=== PATIENT | male | born 1960 | race Hispanic/Latino ===

== ENCOUNTER 2018-04-08 17:57 | Emergency (ER) | payer BC ==
[2018-04-08 18:52] VITALS: RESP 16; TEMP 98.6; BMI 31.1
[2018-04-08] MEDS ORDERED: Sodium Chloride 0.9% 500 ML IV STA (19:21)
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
[2018-04-08 20:02] LABS: BASO # 0.08 K/mm3 (0.0-2.0); BASO % 0.6 % (0.0-3.0); EOS # 0.1 (0.0-0.7); EOS % 0.4 % (1.5-5.0); GRAN # 11.41 (1.4-6.5); GRAN % 79.8 % (50.0-68.0); HEMOGLOBIN 15.1 g/dL (14.0-18.0); LYMPH # 1.7 (1.2-3.4); LYMPH % 11.7 % (22.0-35.0); MEAN CELL VOLUME 97.9 fl (80.0-105.0); MEAN CORPUSCULAR HEMOGLOBIN 34.4 pg (25.0-35.0); MEAN CORPUSCULAR HGB CONC 35.1 g/dl (31.0-37.0); MEAN PLATELET VOLUME 10.5 fl (7.0-11.0); MONO # 1.1 (0.1-0.6); MONO % 7.5 % (1.0-6.0); RBC 4.39 10^6/uL (3.5-6.1); RED CELL DISTRIBUTION WIDTH 14.9 % (11.5-14.5); WHITE BLOOD COUNT 14.3 10^3/uL (4.5-11.0)
[2018-04-08 20:11] LABS: INR 1.27; PARTIAL THROMBOPLASTIN TIME 37.5 Seconds (25.1-36.5); PROTHROMBIN TIME 14.6 SECONDS (9.4-12.5)
[2018-04-08 20:16] LABS: ALB/GLOB RATIO 0.8 (1.1-1.8); ALBUMIN 3.4 g/dL (3.0-4.8); ALT/SGPT 63 U/L (7-56); AST/SGOT 248 U/L (17-59); BLOOD UREA NITROGEN 9 mg/dL (7-21); GFR NON-AFRICAN AMERICAN 57; LIPASE 112 U/L (23-300)
[2018-04-08 21:27] LABS: URINE APPEARANCE SLIGHT-CLOUDY (CLEAR); URINE BILIRUBIN LARGE (NEGATIVE); URINE BLOOD TRACE-INTACT (NEGATIVE); URINE COLOR DARK YELLOW (YELLOW); URINE GLUCOSE (UA) NEGATIVE (NEGATIVE); URINE LEUKOCYTE ESTERASE TRACE Leu/uL (NEGATIVE); URINE PROTEIN 30 mg/dL (<30 mg/dL); URINE UROBILINOGEN >=8.0 E.U./dL (<1 E.U./dL)
[2018-04-08 21:34] LABS: URINE BACTERIA FEW /hpf; URINE RBC 0 - 2 /hpf (0-2); URINE WBC 0 - 2 /hpf (0-6)
[2018-04-09 02:13] VITALS: BP 142/78; PULSE 88; O2SAT 100
== END 2018-04-08 21:55 | disposition home or self-care (01) ==
LOC: ED 17:57
DX: N39.0 Urinary tract infection, site not specified (principal); M54.5 Low back pain; E11.9 Type 2 diabetes mellitus without complications; I10 Essential (primary) hypertension; F17.210 Nicotine dependence, cigarettes, uncomplicated
CPT/HCPCS: 80053; 81001; 83690; 83735; 85025; 85610; 85730; 87086; 96361; 96374; 99283; J1885; J7030

== ENCOUNTER 2018-04-15 20:35 | Emergency (ER) | payer BC ==
[2018-04-15 20:35] VITALS: BMI 27.2
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
[2018-04-15 22:25] LABS: BASO # 0.01 K/mm3 (0.0-2.0); BASO % 0.1 % (0.0-3.0); GRAN # 12.71 (1.4-6.5); GRAN % 91.6 % (50.0-68.0); HEMOGLOBIN 12.9 g/dL (14.0-18.0); LYMPH # 0.7 (1.2-3.4); MEAN CELL VOLUME 100.3 fl (80.0-105.0); MEAN CORPUSCULAR HEMOGLOBIN 34.4 pg (25.0-35.0); MEAN CORPUSCULAR HGB CONC 34.3 g/dl (31.0-37.0); MEAN PLATELET VOLUME 10.1 fl (7.0-11.0); MONO # 0.5 (0.1-0.6); MONO % 3.3 % (1.0-6.0); PLATELET COUNT 215 10^3/uL (120.0-450.0); RBC 3.75 10^6/uL (3.5-6.1); RED CELL DISTRIBUTION WIDTH 16.1 % (11.5-14.5); WHITE BLOOD COUNT 13.9 10^3/uL (4.5-11.0)
[2018-04-15 22:57] LABS: ALB/GLOB RATIO 0.8 (1.1-1.8); ALBUMIN 3.1 g/dL (3.0-4.8); ALT/SGPT 74 U/L (7-56); AST/SGOT 300 U/L (17-59); BLOOD UREA NITROGEN 8 mg/dL (7-21); CALCIUM 7.8 mg/dL (8.4-10.5); GFR NON-AFRICAN AMERICAN > 60; LIPASE 54 U/L (23-300)
[2018-04-15 22:58] LABS: ANISOCYTOSIS 1+; LYMPHOCYTE 6 % (22.0-35.0); MONOCYTE 2 % (1.0-6.0); NEUTROPHIL 92 % (50.0-70.0)
[2018-04-15 23:01] LABS: TROPONIN I < 0.01 ng/mL
[2018-04-16] MEDS ORDERED: Sodium Chloride 0.9% 1,000 ML IV STA (01:35)
[2018-04-16 02:25] LABS: PH,URINE 6.5 (4.7-8.0); URINE BILIRUBIN MODERATE (NEGATIVE); URINE BLOOD TRACE-LYSED (NEGATIVE); URINE GLUCOSE (UA) NEGATIVE (NEGATIVE); URINE LEUKOCYTE ESTERASE NEGATIVE Leu/uL (NEGATIVE); URINE PROTEIN 30 mg/dL (<30 mg/dL)
[2018-04-16 02:26] LABS: URINE APPEARANCE CLEAR (CLEAR); URINE COLOR YELLOW (YELLOW)
[2018-04-16 02:40] VITALS: BP 107/61; PULSE 80; RESP 16; TEMP 98; O2SAT 96
[2018-04-16 03:11] LABS: URINE EPITHELIAL CELLS 0 - 2 /hpf (0-5); URINE RBC 0 - 2 /hpf (0-2); URINE WBC 0 - 2 /hpf (0-6)
--- NOTE | 2018-04-16 11:41 | CT ---
Date of service: 04/16/2018 PROCEDURE: CT Abdomen and Pelvis without intravenous contrast HISTORY: lt. flank pain x 1 day COMPARISON: None. TECHNIQUE: CT scan of the abdomen and pelvis was performed without administration of intravenous contrast. Oral contrast was not administered. Coronal and sagittal reformatted images were obtained. . Radiation dose: Total exam DLP = 912.48 mGy-cm. This CT exam was performed using one or more of the following dose reduction techniques: Automated exposure control, adjustment of the mA and/or kV according to patient size, and/or use of iterative reconstruction technique. FINDINGS: LOWER THORAX: There is discoid atelectasis in the left lateral lung base, otherwise the visualized lungs are clear. LIVER: Normal in size with heterogeneous fatty infiltration. There is mild nodular contour. No intrahepatic ductal dilatation. GALLBLADDER AND BILE DUCTS: No calcified gallstones. No biliary dilatation PANCREAS: Diffuse atrophy. No ductal dilatation. SPLEEN: Normal in size. ADRENALS: Normal in size. No discrete nodule. KIDNEYS AND URETERS: Normal in size without nephrolithiasis. No hydronephrosis. VASCULATURE: No aortic aneurysm. There are aortic atherosclerotic calcifications present. BOWEL: The small bowel loops are normal in caliber. The colon is normal in size. There is scattered left colonic diverticulosis without CT evidence for acute diverticulitis no bowel dilatation or wall thickening. No bowel obstruction. APPENDIX: Normal appendix. PERITONEUM: There is large abdominal and pelvic ascites. No free air. LYMPH NODES: No enlarged lymph nodes. BLADDER: Well distended and grossly normal in appearance. REPRODUCTIVE: The prostate gland is normal in size. BONES: No acute fracture. There hypoplasia of the sacrum and absent coccyx. There is also abnormal segmentation at S1. OTHER FINDINGS: None. IMPRESSION: 1. Suspect hepatic cirrhosis. 2. Large abdominal and pelvic ascites. 3. Scattered left colonic diverticulosis without CT evidence for acute diverticulitis. A preliminary report was provided by [facility].
--- NOTE | 2018-04-16 19:49 | CARD ---
APPROVED REPORT Date of service: 04/15/2018 EKG Measurement Heart [id number] <Conclusion> Normal sinus rhythm Low voltage QRS Septal infarct, age undetermined Abnormal ECG
== END 2018-04-16 03:00 | disposition home or self-care (01) ==
LOC: ED 20:35
DX: R10.9 Unspecified abdominal pain (principal); I10 Essential (primary) hypertension; E78.5 Hyperlipidemia, unspecified; E11.9 Type 2 diabetes mellitus without complications; K74.60 Unspecified cirrhosis of liver; F17.210 Nicotine dependence, cigarettes, uncomplicated
CPT/HCPCS: 74176; 80053; 81001; 83690; 83735; 84484; 85025; 93005; 96360; 99284; J7030

== ENCOUNTER 2018-04-21 15:02 | Inpatient (IN) | payer BC ==
[2018-04-21 15:14] VITALS: BMI 32.5
[2018-04-21 16:00] LABS: BASO # 0.06 K/mm3 (0.0-2.0); BASO % 0.4 % (0.0-3.0); EOS % 0.3 % (1.5-5.0); GRAN # 12.29 (1.4-6.5); GRAN % 81.7 % (50.0-68.0); HEMOGLOBIN 12.5 g/dL (14.0-18.0); LYMPH % 6.4 % (22.0-35.0); MEAN CELL VOLUME 101.4 fl (80.0-105.0); MEAN CORPUSCULAR HEMOGLOBIN 35.5 pg (25.0-35.0); MEAN PLATELET VOLUME 10.4 fl (7.0-11.0); MONO # 1.7 (0.1-0.6); MONO % 11.2 % (1.0-6.0); RBC 3.52 10^6/uL (3.5-6.1); RED CELL DISTRIBUTION WIDTH 16.6 % (11.5-14.5)
[2018-04-21] MEDS ORDERED: Multivitamin (MVI) 10 ML, Thiamine 100 MG, Folic Acid 1 MG in Sodium Chloride 0.9% 1,00... IV SCH (16:15)
[2018-04-21] MEDS ORDERED: Ergocalciferol 50,000 Intl Units Cap PO SCH (16:30)
[2018-04-21 16:48] LABS: INR 1.31; PARTIAL THROMBOPLASTIN TIME 43.2 Seconds (25.1-36.5)
[2018-04-21 16:49] LABS: BASO # 0.06 K/mm3 (0.0-2.0); BASO % 0.4 % (0.0-3.0); EOS # 0.1 (0.0-0.7); EOS % 0.4 % (1.5-5.0); GRAN # 11.13 (1.4-6.5); GRAN % 83.5 % (50.0-68.0); HEMOGLOBIN 12.4 g/dL (14.0-18.0); LYMPH # 0.9 (1.2-3.4); LYMPH % 6.8 % (22.0-35.0); MEAN CELL VOLUME 101.4 fl (80.0-105.0); MEAN CORPUSCULAR HEMOGLOBIN 34.5 pg (25.0-35.0); MEAN CORPUSCULAR HGB CONC 34.1 g/dl (31.0-37.0); MEAN PLATELET VOLUME 9.5 fl (7.0-11.0); MONO # 1.2 (0.1-0.6); MONO % 8.9 % (1.0-6.0); RBC 3.59 10^6/uL (3.5-6.1); RED CELL DISTRIBUTION WIDTH 16.4 % (11.5-14.5); WHITE BLOOD COUNT 13.3 10^3/uL (4.5-11.0)
--- NOTE | 2018-04-21 16:52 | ED PDOC ---
Arrival/HPI - General Chief Complaint: Abdominal Pain Time Seen by Provider: 04/21/18 15:18 Historian: Patient - History of Present Illness Narrative History of Present Illness (Text): 04/21/18 16:49 A 57 year old male, whose past medical history includes hypertension, hyperlipidemia, diabetes type 2, liver cirrhosis with chronic ascites/COPD, EtOH abuse, presents to the emergency department complaining of increasing abdominal girth. Patient has been referred by PMD to ER to be admitted. He admits drinking 1-1.5 pints of alcohol along with smoking 1 pack of cigarettes daily. Patient denies any fever, vomiting, or any other complaints at this time. Also, patient was recently seen here in the ER, where he had CT and blood work performed. PMD: Dr. Maya Past Medical History - Provider Review Nursing Documentation Reviewed: Yes - Infectious Disease Hx of Infectious Diseases: None - Tetanus Immunization Tetanus Immunization: Unknown - Cardiac Hx Cardiac Disorders: No Hx Congestive Heart Failure: No Hx Hypertension: Yes - Pulmonary Hx Respiratory Disorders: Yes Hx Emphysema: Yes - Neurological HX Cerebrovascular Accident: No - HEENT Hx HEENT Disorder: Yes (glasses) - Renal Hx Renal Failure: No - Endocrine/Metabolic Hx Diabetes Mellitus Type 2: Yes - Hematological/Oncological Hx Blood Disorders: No - Integumentary Hx Dermatological Disorder: No - Musculoskeletal/Rheumatological Hx Falls: Yes (2 mo ago) - Gastrointestinal Hx Gastrointestinal Disorders: (reflux/ hx ulcers) Other/Comment: ascitis - Genitourinary/Gynecological Hx Reproductive Disorders: No - Psychiatric Hx Emotional Abuse: No Hx Physical Abuse: No Hx Substance Use: Yes (pot 2x a mo) - Surgical History Hx Musculoskeletal Surgery: Yes (RIGHT ANKLE W/ SCREW AND METAL PLATE 2 YRS AGO 2009?) Hx Orthopedic Surgery: No (Right knee sx and right ankle sx with pins and metal plate.) Other/Comment: HEMORRHOIDECTOMY 2012, pt denies r knee sx, hemorrhoidectomy 2012, cervical disk sx 03/2015 - Anesthesia Hx Anesthesia: Yes Hx Anesthesia Reactions: No Hx Malignant Hyperthermia: No - Suicidal Assessment Feels Threatened In Home Enviroment: No Family/Social History - Physician Review Nursing Documentation Reviewed: Yes Family/Social History: No Known Family HX Smoking Status: Heavy Smoker > 10 Cigarettes Daily Hx Alcohol Use: Yes (ETOH;1 pt vodka and 3 beers daily) Amount per day: 4 Hx Substance Use: Yes (pot 2x a mo) Substance used: marijuana Hx Substance Use Treatment: No Allergies/Home Meds Allergies/Adverse Reactions: Allergies No Known Allergies Allergy (Verified 04/15/18 21:19) Home Medications: Home Meds Medication Instructions Recorded Confirmed Ergocalciferol (Vitamin D2) 50,000 iu PO QWK 09/04/13 04/21/18 [Vitamin D2] Magnesium Oxide [Magox 400] 400 mg PO DAILY 09/04/13 04/21/18 Cyanocobalamin [Vitamin B12 1000 1,000 mcg PO .2X MONTHLY 01/27/15 04/21/18 mcg Tab] Folic Acid 1 mg PO DAILY 06/10/15 04/21/18 Rosuvastatin Calcium [Crestor] 10 mg PO DAILY 06/10/15 04/21/18 Benzonatate [Tessalon Perles] 200 mg PO TID 04/21/18 04/21/18 Cyproheptadine [Periactin] 1 tab PO BID 04/21/18 04/21/18 Ergocalciferol [Drisdol 50,000 1 cap PO Q7D 04/21/18 04/21/18 Intl Units Cap] Furosemide [Lasix] 1 tab PO DAILY 04/21/18 04/21/18 Glycopyrrolate/Formoterol Fum 2 puff IH BID 04/21/18 04/21/18 [Bevespi Aerosphere Inhaler] Levalbuterol [Xopenex] 1 vial IH TID 04/21/18 04/21/18 Levothyroxine [Synthroid] 25 mcg PO DAILY 04/21/18 04/21/18 Mirabegron [Myrbetriq] 1 tab PO DAILY 04/21/18 04/21/18 Montelukast [Singulair] 1 tab PO HS 04/21/18 04/21/18 Pantoprazole [Protonix EC Tab] 1 tab PO DAILY 04/21/18 04/21/18 Pregabalin [Lyrica] 1 cap PO HS 04/21/18 04/21/18 Tamsulosin [Flomax] 1 cap PO DAILY 04/21/18 04/21/18 Thiamine [Vitamin B1 Tab] 1 tab PO DAILY 04/21/18 04/21/18 diltiaZEM CD [Cardizem CD] 120 mg PO DAILY 04/21/18 04/21/18 Review of Systems - Physician Review All systems were reviewed & negative as marked: Yes - Review of Systems Constitutional: absent: Fevers Gastrointestinal: Other (abdominal girth). absent: Vomiting Physical Exam Vital Signs Reviewed: Yes Vital Signs Temp Pulse Resp BP Pulse Ox 04/21/18 15:03 99.5 F 105 H 22 118/70 95 Temperature: Afebrile Blood Pressure: Normal Pulse: Regular Respiratory Rate: Normal Appearance: Positive for: Well-Appearing, Non-Toxic, Comfortable Pain Distress: None Mental Status: Positive for: Alert and Oriented X 3 - Systems Exam Head: Present: Atraumatic, Normocephalic Pupils: Present: PERRL Extroacular Muscles: Present: EOMI Conjunctiva: Present: Icteric Mouth: Present: Moist Mucous Membranes Neck: Present: Normal Range of Motion Respiratory/Chest: Present: Clear to Auscultation, Good Air Exchange. No: Respiratory Distress, Accessory Muscle Use Cardiovascular: Present: Regular Rate and Rhythm, Normal S1, S2. No: Murmurs Abdomen: Present: Distention (caput medusae, with positive fluid wave.), Normal Bowel Sounds. No: Tenderness, Peritoneal Signs Back: Present: Normal Inspection Upper Extremity: Present: Normal Inspection. No: Cyanosis, Edema Lower Extremity: Present: Normal Inspection. No: Edema Neurological: Present: GCS=15, CN II-XII Intact, Speech Normal Skin: Present: Other (jaundice) Psychiatric: Present: Alert, Oriented x 3, Normal Insight, Normal Concentration Medical Decision Making ED Course and Treatment: 04/21/18 16:51 Impression: 57 year old male with abdominal girth. Physical exam shows sclera icteric; skin is jaundice; heart and lungs normal; abdominal distention (caput medusae with positive fluid wave, positive bowel sounds. Plan: -- Labs -- Urinalysis -- Blood Culture -- Urine Culture -- Reassess and disposition Prior Visits: Notes and results from previous visits were reviewed. Patient was last seen here in the emergency department on 04/15/2018 for left sided flank pain. Patient was discharged home. Progress Notes: 04/21/18 18:[address] Maya and reviewed case. Patient to be admitted to med/surg for further management. - Lab Interpretations Lab Results: PT 15.0 SECONDS (9.4-12.5) H 04/21/18 15:40 INR 1.31 04/21/18 15:40 APTT 43.2 Seconds (25.1-36.5) H 04/21/18 15:40 I have reviewed the lab results: Yes - Medication Orders Current Medication Orders: Acetaminophen (Tylenol 650 Mg Supp) 650 mg RC Q6H PRN PRN Reason: TEMP>=99.5F Acetylcysteine (Acetylcysteine 20%) 4 ml IH [id number] DOC Chlordiazepoxide (Librium) 25 mg PO Q6 DOC; Taper Stop: 04/25/18 17:59 Chlordiazepoxide (Librium) 25 mg PO Q4H PRN PRN Reason: Withdrawl Chlordiazepoxide (Librium) 50 mg PO Q4H PRN PRN Reason: Symptoms of alcohol withdrawl Clonidine HCl (Catapres) 0.1 mg PO Q4H PRN PRN Reason: Symptoms of alcohol withdrawl Diazepam (Valium) 5 mg PO Q8H PRN PRN Reason: Symptoms of alcohol withdrawl Diltiazem HCl (Cardizem Cd) 120 mg PO DAILY DOC Docusate Sodium (Colace) 100 mg PO TID DOC Ergocalciferol (Drisdol 50,000 Intl Units Cap) 1 cap PO Q7D DOC Folic Acid (Folic Acid) 1 mg PO DAILY DOC Haloperidol Lactate (Haldol) 2 mg IM Q8H PRN PRN Reason: Agitation Multivitamins/Vitamin C 10 ml/Thiamine HCl 100 mg/ Folic Acid 1 mg/ Sodium Chloride 1,011.2 mls @ 100 mls/hr IV .Q10H7M DOC Levalbuterol HCl (Xopenex) 0.63 mg IH [id number] DOC Levothyroxine Sodium (Synthroid) 25 mcg PO 0600 DOC Lorazepam (Ativan) 1 mg IVP Q4H PRN PRN Reason: Symptoms of alcohol withdrawl Lorazepam (Ativan) 1 mg PO Q4H PRN PRN Reason: Symptoms of alcohol withdrawl Lorazepam (Ativan) 0 mg PO Q8H DOC; Taper Stop: 04/26/18 16:14 Montelukast Sodium (Singulair) 10 mg PO STAT STA Stop: 04/21/18 16:42 Montelukast Sodium (Singulair) 10 mg PO HS [facility] Multivitamins/Minerals (Therapeutic-M Tab) 1 tab PO DAILY [facility] Nicotine (Nicoderm Cq) 1 patch TD DAILY [facility] Non-Formulary Medication (Mirabegron [Myrbetriq]) 1 tab PO DAILY DOC Ondansetron HCl (Zofran Inj) 4 mg IVP Q4H PRN PRN Reason: Nausea/Vomiting Pantoprazole Sodium (Protonix Inj) 40 mg IVP Q12 DOC Tamsulosin HCl (Flomax) 1 mg PO DAILY DOC Thiamine HCl (Vitamin B1 Tab) 100 mg PO DAILY DOC Trazodone HCl (Desyrel) 50 mg PO HS PRN PRN Reason: Insomnia Discontinued Medications Folic Acid (Folic Acid) 1 mg PO DAILY [facility] - Scribe Statement The provider has reviewed the documentation as recorded by the Negar Gonzalez Provider Scribe Attestation: All medical record entries made by the Deepibabimael were at my direction and personally dictated by me. I have reviewed the chart and agree that the record accurately reflects my personal performance of the history, physical exam, medical decision making, and the department course for this patient. I have also personally directed, reviewed, and agree with the discharge instructions and disposition. Disposition/Present on Arrival - Present on Arrival Any Indicators Present on Arrival: No History of DVT/PE: No History of Uncontrolled Diabetes: No Urinary Catheter: No History of Decub. Ulcer: No History Surgical Site Infection Following: None - Disposition Have Diagnosis and Disposition been Completed?: Yes Diagnosis: Elevated LFTs, Jaundice, Ascites Disposition: HOSPITALIZED Disposition Time: 17:15 Condition: GUARDED
[2018-04-21 17:16] LABS: ALB/GLOB RATIO 0.8 (1.1-1.8); ALBUMIN 3.1 g/dL (3.0-4.8); ALT/SGPT 70 U/L (7-56); AMYLASE 31 U/L (35-125); AST/SGOT 230 U/L (17-59); BILIRUBIN,DIRECT 3.7 mg/dL (0.0-0.4); BLOOD UREA NITROGEN 10 mg/dL (7-21); GFR NON-AFRICAN AMERICAN > 60; LIPASE 73 U/L (23-300)
[2018-04-21] MEDS ORDERED: Levalbuterol 0.63 MG/3 ML Inhal Soln UD IH SCH (18:00)
[2018-04-21] MEDS ORDERED: Vancomycin 1gm in NS 250ml 1 GM/250 ML BAG IVPB STA ×2 (18:04→21:45)
[2018-04-21] MEDS: Multivitamin With Minerals Tab PO SCH (18:04)
[2018-04-21] MEDS ORDERED: Piperacillin/Tazobact 3.375 gm 100 ML IVPB STA (18:13)
[2018-04-21 19:01] LABS: PH,URINE 6.5 (4.7-8.0); URINE APPEARANCE CLOUDY (CLEAR); URINE BILIRUBIN LARGE (NEGATIVE); URINE BLOOD TRACE-INTACT (NEGATIVE); URINE COLOR YELLOW (YELLOW); URINE GLUCOSE (UA) 100 mg/dL (NEGATIVE); URINE LEUKOCYTE ESTERASE NEGATIVE Leu/uL (NEGATIVE); URINE PROTEIN 100 mg/dL (<30 mg/dL); URINE UROBILINOGEN >=8.0 E.U./dL (<1 E.U./dL)
[2018-04-21 19:03] LABS: URINE EPITHELIAL CELLS 0 - 2 /hpf (0-5); URINE WBC 0 - 2 /hpf (0-6)
[2018-04-21 19:40] LABS: FREE T4 1.62 ng/dL (0.78-2.19); T4 8.3 ug/dL (5.5-11.0)
[2018-04-21] MEDS: Levalbuterol 0.63 MG/3 ML Inhal Soln UD IH SCH (19:45)
[2018-04-21 19:53] LABS: T3 0.83 ng/mL (0.97-1.69)
[2018-04-21] MEDS: Piperacillin/Tazobact 3.375 gm 100 ML IVPB SCH (21:51)
--- NOTE | 2018-04-21 22:30 | HP ---
DATE OF EXAM: 04/21/2018 HISTORY OF PRESENT ILLNESS: The patient is a 57-year-old male who came to the emergency room today. The patient was evaluated and seen in the office yesterday because the patient presented with complaints of increasing shortness of breath, increasing abdominal distention and yellowness of the eyes and the patient has gained more than 11 pounds since the last visit and the patient has come with increasing shortness of breath, leg swelling, and increasing abdominal distention. Apparently, the patient was seen in the emergency room on 04/15/2018 and the patient presented with complaints of abdominal pain and toe pain. The patient was discharged by the ER staff. Today, the patient presented to the emergency room with increasing abdominal distention, shortness of breath, etc. CODE STATUS: Full code. LIVING WILL ADVANCE DIRECTIVE: None. Height is 5 feet 6 inches. Weight is 202. BMI is 33. MEDICATIONS: The patient's home medications are incorrect in the [facility]. The patient has been started yesterday on Lasix 40 mg daily. The patient's Cardizem has been decreased to 120 mg daily. The patient's Crestor has been stopped. The patient is no longer on diazepam and doxycycline. The patient is on Xopenex nebulizer 0.63 mg four times a day. The patient is no longer on metformin. The patient is no longer on Motrin, magnesium, Pamelor, or Percocet. The patient is on vitamin D 50,000 units weekly, thiamine 100 mg daily, folic acid 1 mg daily, Lasix 40 mg daily, Protonix or Dexilant daily. SOCIAL HISTORY: Positive for alcohol use on a daily basis. Positive for marijuana use. Positive for active smoking. PAST MEDICAL AND SURGICAL HISTORY: Significant for severe alcohol and nicotine dependence and marijuana abuse, history of perirectal abscess, history of perirectal abscess surgery, history of constipation, history of alcohol withdrawal and delirium tremens, history of hepatorenal syndrome, history of alcohol withdrawal, history of left neck abscess, history of cellulitis, history of spinal stenosis, history of foot disease, history of prediabetes, history of vitamin B12 deficiency, history of MRSA, elbow cellulitis, neck cellulitis and neck abscess, history of incision and drainage of the left neck abscess, history of cervical spine diskectomy effusion, wound abscess drainage, exploration of the cervical spine with cervical fusion, history of neck abscess and drainage, history of possible pulmonary hypertension, history of hypertension, history of active nicotine, alcohol and marijuana abuse, history of emphysema, history of cervical spine and lumbar spine degenerative disk disease, history of perineal abscess, hemorrhoidectomy, tonsillectomy, history of right knee surgery, history of cervical, thoracic, and lumbar spine disk disease, history of cervical disk herniation with severe spinal stenosis, cervical spine surgery, history of fatty liver, history of left inguinal hernia, history of hepatomegaly with fatty liver, history of hepatic steatosis, history of perirectal abscess, history of hydrocele, history of gastritis, colonic diverticulosis, fatty liver, history of bilateral hydroceles, history of perianal and perirectal abscess, history of Escherichia coli, Proteus mirabilis, perirectal, perineal abscess, history of sleep apnea, history of alcohol and nicotine dependence, history of delirium tremens, history of diabetes and prediabetes, history of sepsis, history of hyperprocalcitonemia, history of severe gait dysfunction, history of left foot wound, history of chronic pain syndrome, history of right foot abscess, history of poor compliance and noncompliance, history of cervical neck abscess, history of left elbow abscess, history of , history of cervical spondylosis and myelopathy, history of Staphylococcus aureus, Gram-positive cocci in clusters, bacteremia sepsis, history of right neck cellulitis and abscess, history of left elbow cellulitis and abscess, history of extremely poor compliance, history of degenerative joint disease, and history of neuropathy. The patient has recently been seen in the emergency room on 04/15/2018. The patient was also found to have leukocytosis and the patient was found to have hyperbilirubinemia with bilirubin of 4.6 and elevated transaminases and the patient had a CT scan at that time on 04/15/2018. CAT scan shows large new-onset ascites and hepatic cirrhosis and colonic diverticulosis. PHYSICAL EXAMINATION: GENERAL: The patient is seen in stretcher #20 in the emergency room. VITAL SIGNS: The patient's T-max is 99.5, heart rate 105, blood pressure 118/70, respirations 22, and O2 sat 99%. HEENT: Head examination; normocephalic and atraumatic. HEENT examination shows icteric sclerae. Dry oral mucosa. Overgrown alfonso. Poor hygiene. NECK: No neck rigidity. Positive cervical spine surgery noted. CARDIOVASCULAR: S1 and S2, tachycardic rhythm. LUNGS: Show rhonchi. ABDOMEN: Morbidly distended, tense, and tender. Positive bowel sounds. Positive prominent veins noted in the abdominal wall. GENITALIA: Male. RECTAL: Deferred. EXTREMITIES: Shows positive swelling of the lower extremity. Positive pitting edema. MUSCULOSKELETAL: Shows a body mass index of 33. NEUROLOGIC: The patient is alert, awake, and responsive. No visible asterixis of flap noted. Gait examination is assisted with a cane. DIAGNOSTIC DATA: Alcohol level, ammonia level, CBC, CMP, PT/PTT, drug screen, blood and urine cultures, and type and screen pending. When above diagnostic data is available to be reviewed and diagnostic therapeutic intervention will be managed. IMPRESSION AND PLAN: 1. New-onset large abdominopelvic ascites with obstructive jaundice and hyperbilirubinemia. 2. Tachycardia. 3. Low-grade fever. 4. Leukocytosis with granulocytosis. 5. Hyperbilirubinemia. 6. Severe transaminitis. 7. Proteinuria and microscopic hematuria. 8. History of active smoking, alcoholism and drug abuse. 9. Left lower lobe atelectasis. 10. Hepatic cirrhosis with hepatic fatty infiltration. 11. Pancreatic atrophy. 12. Colonic diverticulosis. 13. Large abdominopelvic ascites. Plan at this time, the patient has been evaluated in the ER, pending all the diagnostic testing. The patient's hepatitis serologies have been ordered. Amylase and lipase has been ordered. The patient's alcohol level, ammonia, amylase, lipase, CMP, LFT, magnesium, phosphorus, CBC, and PTT/PT has been pending. The patient has been ordered oxygen, incentive spirometry, and consistent carbohydrate diet. The patient has been ordered physical therapy and occupational therapy. At present, the patient's entire diagnostic data is pending. The patient's further management will be dependent upon the patient's clinical condition, hemodynamic status, and as per the patient's diagnostic data and as per recommendation by other physicians evaluation. In addition, the patient will be consulted with Gastroenterology. At present, the patient is seen and evaluated in the emergency room in bed 21. The patient is pending all diagnostic data. The patient will be given empiric IV antibiotics. Interventional Radiology evaluation has been requested. Gastroenterology evaluation has been requested. Dictated and electronically signed, not read. Rai Maya MD [facility] # [id number]
[2018-04-22 00:16] LABS: BARBITURATES, UR NEGATIVE (NEGATIVE); BENZODIAZEPINES, UR POSITIVE (NEGATIVE); OPIATES, UR POSITIVE (NEGATIVE); PHENCYCLIDINE, UR POSITIVE (NEGATIVE)
[2018-04-22 00:59] LABS: HDL CHOLESTEROL 21 mg/dL (29-60)
[2018-04-22 01:10] LABS: LDL CHOLESTEROL 64 mg/dL (0-129)
[2018-04-22] MEDS ORDERED: Piperacillin/Tazobact 3.375 gm 100 ML IVPB SCH (02:13)
[2018-04-22] MEDS: Levalbuterol 0.63 MG/3 ML Inhal Soln UD IH SCH ×5 (02:20→20:34)
[2018-04-22] MEDS: Acetylcysteine 20% Inhal Soln (4ml) IH SCH ×5 (02:20→20:34)
[2018-04-22] MEDS: Piperacillin/Tazobact 3.375 gm 100 ML IVPB SCH ×3 (05:00→22:07)
[2018-04-22] MEDS: Levothyroxine 50 MCG TAB PO SCH (05:01)
[2018-04-22] MEDS ORDERED: Levothyroxine 25 MCG TAB PO SCH ×2 (06:00→10:00)
[2018-04-22 07:01] LABS: BASO # 0.04 K/mm3 (0.0-2.0); BASO % 0.3 % (0.0-3.0); EOS # 0.1 (0.0-0.7); EOS % 0.4 % (1.5-5.0); GRAN # 10.91 (1.4-6.5); HEMOGLOBIN 11.5 g/dL (14.0-18.0); LYMPH # 1.5 (1.2-3.4); LYMPH % 11.2 % (22.0-35.0); MEAN CELL VOLUME 101.8 fl (80.0-105.0); MEAN CORPUSCULAR HEMOGLOBIN 34.2 pg (25.0-35.0); MEAN CORPUSCULAR HGB CONC 33.6 g/dl (31.0-37.0); MEAN PLATELET VOLUME 10.2 fl (7.0-11.0); MONO # 1.1 (0.1-0.6); MONO % 8.1 % (1.0-6.0); RBC 3.36 10^6/uL (3.5-6.1); RED CELL DISTRIBUTION WIDTH 16.9 % (11.5-14.5); WHITE BLOOD COUNT 13.6 10^3/uL (4.5-11.0)
[2018-04-22 07:27] LABS: ALB/GLOB RATIO 0.8 (1.1-1.8); ALBUMIN 2.8 g/dL (3.0-4.8); ALT/SGPT 60 U/L (7-56); AST/SGOT 202 U/L (17-59); BLOOD UREA NITROGEN 11 mg/dL (7-21); CALCIUM 7.9 mg/dL (8.4-10.5); GFR NON-AFRICAN AMERICAN > 60
[2018-04-22] MEDS ORDERED: Magnesium Sulfate 2 gm/50 ml 2 GM/50 ML BAG IVPB ONE (07:49)
--- NOTE | 2018-04-22 09:13 | US ---
PROCEDURE: Portal vein duplex ultrasound. CLINICAL HISTORY: Cirrhosis. Deteriorating liver function. Evaluate for portal vein thrombosis. PHYSICIAN(S): Jeronimo Adrian M.D. FINDINGS: The exam is extremely limited due to the patient's abdominal distention, shortness of breath, and inability to cooperate Limited images of the hepatic parenchyma are heterogeneous. No obvious mass is noted. The extrahepatic portal vein is patent with hepatopetal flow. The hepatic artery is patent. Limited imaging of the central hepatic veins are patent. There is a small amount of ascites in the upper abdomen. The spleen is not evaluated. IMPRESSION: 1. Patent portal vein with hepatopetal flow. 2. Very limited study.
[2018-04-22] MEDS ORDERED: MIRABEGRON PO SCH (10:00)
[2018-04-22] MEDS: Multivitamin With Minerals Tab PO SCH (10:13)
[2018-04-22] MEDS: diltiaZEM 120 mg/24 Hours CD Cap PO SCH (10:14)
--- NOTE | 2018-04-22 10:30 | US ---
Date of service: 04/21/2018 HISTORY: ASCITES/JAUNDICE COMPARISON: 06/23/2017. abdominal ultrasound. 04/16/2018 CT abdomen and pelvis. TECHNIQUE: Sonographic evaluation of the abdomen. FINDINGS: LIVER: Measures 20.0 cm. Hepatopedal blood flow. Fatty infiltration manifest ultrasonographically as increased echogenicity of the liver parenchyma. Irregular contours to the liver consistent with cirrhotic change. GALLBLADDER: Unremarkable. No gallstones. COMMON BILE DUCT: Measures 5.7 mm. No stones. No dilatation. PANCREAS: Obscured by overlying bowel gas. Non diagnostic assessment of the pancreas RIGHT KIDNEY: Measures 4.6 x 11cm. Normal echogenicity. No calculus, mass, or hydronephrosis. LEFT KIDNEY: Measures 5.5 x 11.6cm. Normal echogenicity. No calculus, mass, or hydronephrosis. SPLEEN: Top-normal was orthogonal measurements 6 x 5.9 x 12.5 cm. AORTA: No aneurysmal dilatation. IVC: Unremarkable. OTHER FINDINGS: Intra-abdominal ascites which is incompletely visualized. IMPRESSION: Hepatomegaly, hepatic steatosis and cirrhotic appearing liver. No significant interval change compared to the prior examination(s). Limitations of the current examination: Nondiagnostic study of pancreas. Concordant findings (preliminary report) provided by [facility].
[2018-04-22 12:25] LABS: BODY FLUID TYPE PERITONEAL/ASCITES
[2018-04-22 13:04] LABS: BF GROSS APPEARANCE CLEAR (CLEAR); BODY FLUID TOTAL COUNT 100 (0-0)
[2018-04-22 13:10] LABS: HEPATITIS B SURFACE AG Negative (NEGATIVE)
[2018-04-22 13:16] LABS: HEPATITIS A IGM NEGATIVE (NEGATIVE); HEPATITIS B CORE AB NEGATIVE (NEGATIVE)
[2018-04-22 13:28] LABS: HEPATITIS C ANTIBODY NEGATIVE (NEGATIVE)
--- NOTE | 2018-04-22 14:46 | CP.PCM.CON ---
<Ghanshyam Falk - Last Filed: 04/22/18 14:53> History of Present Illness - History of Present Illness History of Present Illness: Infectious disease progress note: 57 year old male, whose pmhx includes hypertension, hyperlipidemia, diabetes type 2, liver cirrhosis with ascites, COPD, EtOH abuse, presents to the ED following visit to his PMD. In the office patient was reportedly had scleral icterus , increasingly sob, abdominal distention. Patient also had a 11 pound weight gain. He states that he feels that his abdomen is more distended and only complains of mild pain. Patient also complains of being more short of breath recently worst wit exertion. He denies any fever, chills, headaches, chest pain, n/v/d, urinary symptoms. 12 Point ROS performed and neg other than stated above PMHx: as above PShx: denies ALL: NKA SH: drinks 1-2 pints per day, smokes 1-2 PPD > 30 years, smokes marijunana FH: denies Review of Systems - Review of Systems All systems: reviewed and no additional remarkable complaints except Past Patient History - Infectious Disease Hx of Infectious Diseases: None - Tetanus Immunizations Tetanus Immunization: Unknown - Past Medical History & Family History Past Medical History?: Yes - Past Social History Smoking Status: Current Some Days Smoker - CARDIAC Hx Hypercholesterolemia: Yes Hx Hypertension: Yes - PULMONARY Hx Chronic Obstructive Pulmonary Disease (COPD): Yes - NEUROLOGICAL HX Cerebrovascular Accident: No - HEENT Hx HEENT Problems: Yes (glasses) - RENAL Hx Renal Failure: No - ENDOCRINE/METABOLIC Hx Diabetes Mellitus Type 2: Yes - HEMATOLOGICAL/ONCOLOGICAL Hx Blood Disorders: No - INTEGUMENTARY Hx Dermatological Problems: No - MUSCULOSKELETAL/RHEUMATOLOGICAL Hx Arthritis: Yes - GASTROINTESTINAL Hx Gastrointestinal Disorders: (reflux/ hx ulcers) Other/Comment: ascitis - GENITOURINARY/GYNECOLOGICAL Hx Genitourinary Disorders: No - PSYCHIATRIC Hx Emotional Abuse: No Hx Physical Abuse: No - SURGICAL HISTORY Hx Musculoskeletal Surgery: Yes (RIGHT ANKLE W/ SCREW AND METAL PLATE 2 YRS AGO 2009?) Hx Orthopedic Surgery: No (Right knee sx and right ankle sx with pins and metal plate.) Other/Comment: HEMORRHOIDECTOMY 2012, pt denies r knee sx, hemorrhoidectomy 2012, cervical disk sx 03/2015 - ANESTHESIA Hx Anesthesia: Yes Hx Anesthesia Reactions: No Hx Malignant Hyperthermia: No Meds Allergies/Adverse Reactions: Allergies Allergy/AdvReac Type Severity Reaction Status Date / Time No Known Allergies Allergy Verified 04/15/18 21:19 - Medications Medications: Current Medications Acetylcysteine (Acetylcysteine 20%) 4 ml IH [id number] [facility] Last Admin: 04/22/18 14:12 Dose: 4 ml Chlordiazepoxide (Librium) 25 mg PO Q6 [facility]; Taper Stop: 04/25/18 17:59 Last Admin: 04/22/18 13:22 Dose: 25 mg Chlordiazepoxide (Librium) 25 mg PO Q4H PRN PRN Reason: Withdrawl Chlordiazepoxide (Librium) 50 mg PO Q4H PRN PRN Reason: Symptoms of alcohol withdrawl Clonidine HCl (Catapres) 0.1 mg PO Q4H PRN PRN Reason: Symptoms of alcohol withdrawl Diazepam (Valium) 5 mg PO Q8H PRN PRN Reason: Symptoms of alcohol withdrawl Diltiazem HCl (Cardizem Cd) 120 mg PO DAILY [facility] Last Admin: 04/22/18 10:14 Dose: 120 mg Docusate Sodium (Colace) 100 mg PO TID [facility] Last Admin: 04/22/18 10:14 Dose: 100 mg Ergocalciferol (Drisdol 50,000 Intl Units Cap) 1 cap PO Q7D [facility] Last Admin: 04/21/18 18:04 Dose: 1 cap Folic Acid (Folic Acid) 1 mg PO DAILY [facility] Furosemide (Lasix) 40 mg IVP DAILY [facility] Haloperidol Lactate (Haldol) 2 mg IM Q8H PRN PRN Reason: Agitation Piperacillin Sod/Tazobactam Sod (Zosyn 3.375 In Ns 100ml) 100 mls @ 25 mls/hr IVPB Q8 [facility]; Protocol Stop: 04/30/18 22:01 Last Admin: 04/22/18 05:00 Dose: 25 mls/hr Levalbuterol HCl (Xopenex) 0.63 mg IH [id number] [facility] Last Admin: 04/22/18 14:12 Dose: 0.63 mg Levothyroxine Sodium (Synthroid) 50 mcg PO 0600 [facility] Last Admin: 04/22/18 05:01 Dose: 50 mcg Lorazepam (Ativan) 1 mg IVP Q4H PRN PRN Reason: Symptoms of alcohol withdrawl Lorazepam (Ativan) 1 mg PO Q4H PRN PRN Reason: Symptoms of alcohol withdrawl Lorazepam (Ativan) 2 mg PO Q8H [facility] Stop: 04/22/18 16:59 Last Admin: 04/22/18 10:15 Dose: 2 mg Lorazepam (Ativan) 1 mg PO Q6H [facility] Stop: 04/23/18 16:59 Lorazepam (Ativan) 1 mg PO Q8H [facility] Stop: 04/24/18 16:59 Lorazepam (Ativan) 1 mg PO Q12H [facility] Stop: 04/25/18 16:59 Lorazepam (Ativan) 1 mg PO 1700 [facility] Stop: 04/26/18 16:59 Montelukast Sodium (Singulair) 10 mg PO HS [facility] Last Admin: 04/21/18 21:51 Dose: 10 mg Multivitamins/Minerals (Therapeutic-M Tab) 1 tab PO DAILY [facility] Last Admin: 04/22/18 10:13 Dose: 1 tab Nicotine (Nicoderm Cq) 1 patch TD DAILY [facility] Last Admin: 04/22/18 13:21 Dose: 1 patch Mirabegron [ Myrbetriq] 1 Tab ( Home Med) 1 tab PO DAILY [facility] Last Admin: 04/22/18 10:16 Dose: Not Given Ondansetron HCl (Zofran Inj) 4 mg IVP Q4H PRN PRN Reason: Nausea/Vomiting Pantoprazole Sodium (Protonix Inj) 40 mg IVP Q12 [facility] Last Admin: 04/22/18 10:12 Dose: 40 mg Spironolactone (Aldactone) 50 mg PO BID [facility] Tamsulosin HCl (Flomax) 1 mg PO DAILY [facility] Last Admin: 04/22/18 10:13 Dose: 1 mg Thiamine HCl (Vitamin B1 Tab) 100 mg PO DAILY [facility] Last Admin: 04/22/18 10:13 Dose: 100 mg Trazodone HCl (Desyrel) 50 mg PO HS PRN PRN Reason: Insomnia Physical Exam - Constitutional Appears: No Acute Distress - Head Exam Head Exam: ATRAUMATIC, NORMOCEPHALIC - Eye Exam Eye Exam: EOMI, PERRL - ENT Exam ENT Exam: Mucous Membranes Moist - Respiratory Exam Respiratory Exam: Clear to Auscultation Bilateral Additional comments: no r/r/w - Cardiovascular Exam Cardiovascular Exam: REGULAR RHYTHM, +S1, +S2 - GI/Abdominal Exam GI & Abdominal Exam: Distended, Normal Bowel Sounds, Soft Additional comments: mild fluid shift wave - Extremities Exam Additional comments: no LE edema, or calf tenderness - Neurological Exam Neurological exam: Alert, Oriented x3 - Psychiatric Exam Psychiatric exam: Normal Mood - Skin Skin Exam: Dry, Warm Results - Vital Signs Recent Vital Signs: Last Vital Signs Temp 97.9 F 04/22/18 14:00 Pulse 101 H 04/22/18 14:00 Resp 20 04/22/18 14:00 BP 132/79 04/22/18 14:00 Pulse Ox 96 04/22/18 14:00 - Labs Result Diagrams: 04/22/18 06:30 04/22/18 06:30 Labs: Laboratory Results - last 24 hr 04/21/18 04/21/18 04/21/18 15:30 15:40 15:40 WBC 15.0 H RBC 3.52 Hgb 12.5 L Hct 35.7 L MCV 101.4 MCH 35.5 H MCHC 35.0 RDW 16.6 H Plt Count 218 MPV 10.4 Gran % 81.7 H Lymph % (Auto) 6.4 L [place] % (Auto) 11.2 H Eos % (Auto) 0.3 L Baso % (Auto) 0.4 Gran # 12.29 H Lymph # (Auto) 1.0 L [place] # (Auto) 1.7 H Eos # (Auto) 0.0 Baso # (Auto) 0.06 PT 15.0 H INR 1.31 APTT 43.2 H Sodium Potassium Chloride Carbon Dioxide Anion Gap BUN Creatinine Est GFR ( Amer) Est GFR (Non-Af Amer) Random Glucose Calcium Phosphorus Magnesium Total Bilirubin Direct Bilirubin GGT AST ALT Alkaline Phosphatase Ammonia Total Protein Albumin Globulin Albumin/Globulin Ratio Triglycerides Cholesterol LDL Cholesterol Direct HDL Cholesterol Amylase Lipase Free T4 Thyroxine (T4) Free T3 pg/mL Total T3 TSH 3rd Generation Urine Color Urine Appearance Urine pH Ur Specific [place] Urine Protein Urine Glucose (UA) Urine Ketones Urine Blood Urine Nitrate Urine Bilirubin Urine Urobilinogen Ur Leukocyte Esterase Urine RBC Urine WBC Ur Epithelial Cells Fluid Source Fluid Appearance Fluid WBC Fluid RBC Fluid Tot Cell Count Fluid Mononuclear Cell Fl Polymorphonucl Cell Fluid Comment Urine Opiates Screen Urine Methadone Screen Ur Barbiturates Screen Ur Phencyclidine Scrn Ur Amphetamines Screen U Benzodiazepines Scrn U Oth Cocaine Metabols U Cannabinoids Screen Alcohol, Quantitative Hepatitis A IgM Ab Hep Bs Antigen Hep B Core IgM Ab Hepatitis C Antibody Blood Type A POSITIVE Antibody Screen Negative BBK History Checked Patient has bt 04/21/18 04/21/18 04/21/18 16:10 16:25 16:25 WBC RBC Hgb Hct MCV MCH MCHC RDW Plt Count MPV Gran % Lymph % (Auto) [place] % (Auto) Eos % (Auto) Baso % (Auto) Gran # Lymph # (Auto) [place] # (Auto) Eos # (Auto) Baso # (Auto) PT INR APTT Sodium 134 Potassium 4.1 Chloride 101 Carbon Dioxide 22 Anion Gap 16 BUN 10 Creatinine 0.8 Est GFR ( Amer) > 60 Est GFR (Non-Af Amer) > 60 Random Glucose 85 Calcium 8.0 L Phosphorus Magnesium 1.7 Total Bilirubin 4.8 H Direct Bilirubin 3.7 H GGT AST 230 H D ALT 70 H Alkaline Phosphatase 400 H D Ammonia 14 Total Protein 6.8 Albumin 3.1 Globulin 3.8 Albumin/Globulin Ratio 0.8 L Triglycerides 98 Cholesterol 98 L LDL Cholesterol Direct 64 HDL Cholesterol 21 L Amylase 31 L Lipase 73 Free T4 Thyroxine (T4) Free T3 pg/mL Total T3 TSH 3rd Generation Urine Color Urine Appearance Urine pH Ur Specific [place] Urine Protein Urine Glucose (UA) Urine Ketones Urine Blood Urine Nitrate Urine Bilirubin Urine Urobilinogen Ur Leukocyte Esterase Urine RBC Urine WBC Ur Epithelial Cells Fluid Source Fluid Appearance Fluid WBC Fluid RBC Fluid Tot Cell Count Fluid Mononuclear Cell Fl Polymorphonucl Cell Fluid Comment Urine Opiates Screen Urine Methadone Screen Ur Barbiturates Screen Ur Phencyclidine Scrn Ur Amphetamines Screen U Benzodiazepines Scrn U Oth Cocaine Metabols U Cannabinoids Screen Alcohol, Quantitative 147 H Hepatitis A IgM Ab Hep Bs Antigen Hep B Core IgM Ab Hepatitis C Antibody Blood Type Antibody Screen BBK History Checked 04/21/18 04/21/18 04/21/18 16:25 17:30 17:30 WBC 13.3 H RBC 3.59 Hgb 12.4 L Hct 36.4 L MCV 101.4 MCH 34.5 MCHC 34.1 RDW 16.4 H Plt Count 140 MPV 9.5 Gran % 83.5 H Lymph % (Auto) 6.8 L [place] % (Auto) 8.9 H Eos % (Auto) 0.4 L Baso % (Auto) 0.4 Gran # 11.13 H Lymph # (Auto) 0.9 L [place] # (Auto) 1.2 H Eos # (Auto) 0.1 Baso # (Auto) 0.06 PT INR APTT Sodium Potassium Chloride Carbon Dioxide Anion Gap BUN Creatinine Est GFR ( Amer) Est GFR (Non-Af Amer) Random Glucose Calcium Phosphorus Magnesium Total Bilirubin Direct Bilirubin GGT 1258 H AST ALT Alkaline Phosphatase Ammonia Total Protein Albumin Globulin Albumin/Globulin Ratio Triglycerides Cholesterol LDL Cholesterol Direct HDL Cholesterol Amylase Lipase Free T4 1.62 Thyroxine (T4) 8.3 Free T3 pg/mL 2.83 Total T3 0.83 L TSH 3rd Generation 11.40 H Urine Color Urine Appearance Urine pH Ur Specific [place] Urine Protein Urine Glucose (UA) Urine Ketones Urine Blood Urine Nitrate Urine Bilirubin Urine Urobilinogen Ur Leukocyte Esterase Urine RBC Urine WBC Ur Epithelial Cells Fluid Source Fluid Appearance Fluid WBC Fluid RBC Fluid Tot Cell Count Fluid Mononuclear Cell Fl Polymorphonucl Cell Fluid Comment Urine Opiates Screen Urine Methadone Screen Ur Barbiturates Screen Ur Phencyclidine Scrn Ur Amphetamines Screen U Benzodiazepines Scrn U Oth Cocaine Metabols U Cannabinoids Screen Alcohol, Quantitative Hepatitis A IgM Ab Hep Bs Antigen Hep B Core IgM Ab Hepatitis C Antibody Blood Type Antibody Screen BBK History Checked 04/21/18 04/21/18 04/22/18 18:16 18:16 06:30 WBC RBC Hgb Hct MCV MCH MCHC RDW Plt Count MPV Gran % Lymph % (Auto) [place] % (Auto) Eos % (Auto) Baso % (Auto) Gran # Lymph # (Auto) [place] # (Auto) Eos # (Auto) Baso # (Auto) PT INR APTT Sodium Potassium Chloride Carbon Dioxide Anion Gap BUN Creatinine Est GFR ( Amer) Est GFR (Non-Af Amer) Random Glucose Calcium Phosphorus Magnesium Total Bilirubin Direct Bilirubin GGT AST ALT Alkaline Phosphatase Ammonia Total Protein Albumin Globulin Albumin/Globulin Ratio Triglycerides Cholesterol LDL Cholesterol Direct HDL Cholesterol Amylase Lipase Free T4 Thyroxine (T4) Free T3 pg/mL Total T3 TSH 3rd Generation Urine Color Yellow Urine Appearance Cloudy Urine pH 6.5 Ur Specific [place] >= 1.030 Urine Protein 100 H Urine Glucose (UA) 100 H Urine Ketones 40 H Urine Blood Trace-intact H Urine Nitrate Positive H Urine Bilirubin Large H Urine Urobilinogen >=8.0 Ur Leukocyte Esterase Negative Urine RBC 1 - 3 H Urine WBC 0 - 2 Ur Epithelial Cells 0 - 2 Fluid Source Fluid Appearance Fluid WBC Fluid RBC Fluid Tot Cell Count Fluid Mononuclear Cell Fl Polymorphonucl Cell Fluid Comment Urine Opiates Screen Positive H Urine Methadone Screen Negative Ur Barbiturates Screen Negative Ur Phencyclidine Scrn Positive H Ur Amphetamines Screen Negative U Benzodiazepines Scrn Positive H U Oth Cocaine Metabols Negative U Cannabinoids Screen Positive H Alcohol, Quantitative Hepatitis A IgM Ab Negative Hep Bs Antigen Negative Hep B Core IgM Ab Negative Hepatitis C Antibody Negative Blood Type Antibody Screen BBK History Checked 04/22/18 04/22/18 04/22/18 06:30 06:30 06:30 WBC 13.6 H RBC 3.36 L Hgb 11.5 L Hct 34.2 L MCV 101.8 MCH 34.2 MCHC 33.6 RDW 16.9 H Plt Count 136 MPV 10.2 Gran % 80.0 H Lymph % (Auto) 11.2 L [place] % (Auto) 8.1 H Eos % (Auto) 0.4 L Baso % (Auto) 0.3 Gran # 10.91 H Lymph # (Auto) 1.5 [place] # (Auto) 1.1 H Eos # (Auto) 0.1 Baso # (Auto) 0.04 PT INR APTT Sodium 134 Potassium 4.0 Chloride 102 Carbon Dioxide 23 Anion Gap 13 BUN 11 Creatinine 0.8 Est GFR ( Amer) > 60 Est GFR (Non-Af Amer) > 60 Random Glucose 92 Calcium 7.9 L Phosphorus Magnesium 1.6 L Total Bilirubin 5.3 H Direct Bilirubin 4.0 H GGT AST 202 H ALT 60 H Alkaline Phosphatase 367 H Ammonia 32 Total Protein 6.3 Albumin 2.8 L Globulin 3.5 Albumin/Globulin Ratio 0.8 L Triglycerides Cholesterol LDL Cholesterol Direct HDL Cholesterol Amylase Lipase Free T4 Thyroxine (T4) Free T3 pg/mL Total T3 TSH 3rd Generation Urine Color Urine Appearance Urine pH Ur Specific [place] Urine Protein Urine Glucose (UA) Urine Ketones Urine Blood Urine Nitrate Urine Bilirubin Urine Urobilinogen Ur Leukocyte Esterase Urine RBC Urine WBC Ur Epithelial Cells Fluid Source Fluid Appearance Fluid WBC Fluid RBC Fluid Tot Cell Count Fluid Mononuclear Cell Fl Polymorphonucl Cell Fluid Comment Urine Opiates Screen Urine Methadone Screen Ur Barbiturates Screen Ur Phencyclidine Scrn Ur Amphetamines Screen U Benzodiazepines Scrn U Oth Cocaine Metabols U Cannabinoids Screen Alcohol, Quantitative Hepatitis A IgM Ab Hep Bs Antigen Hep B Core IgM Ab Hepatitis C Antibody Blood Type Antibody Screen BBK History Checked 04/22/18 04/22/18 06:40 12:00 WBC RBC Hgb Hct MCV MCH MCHC RDW Plt Count MPV Gran % Lymph % (Auto) [place] % (Auto) Eos % (Auto) Baso % (Auto) Gran # Lymph # (Auto) [place] # (Auto) Eos # (Auto) Baso # (Auto) PT INR APTT Sodium Potassium Chloride Carbon Dioxide Anion Gap BUN Creatinine Est GFR ( Amer) Est GFR (Non-Af Amer) Random Glucose Calcium Phosphorus 3.6 Magnesium Total Bilirubin Direct Bilirubin GGT AST ALT Alkaline Phosphatase Ammonia Total Protein Albumin Globulin Albumin/Globulin Ratio Triglycerides Cholesterol LDL Cholesterol Direct HDL Cholesterol Amylase Lipase Free T4 Thyroxine (T4) Free T3 pg/mL Total T3 TSH 3rd Generation Urine Color Urine Appearance Urine pH Ur Specific [place] Urine Protein Urine Glucose (UA) Urine Ketones Urine Blood Urine Nitrate Urine Bilirubin Urine Urobilinogen Ur Leukocyte Esterase Urine RBC Urine WBC Ur Epithelial Cells Fluid Source Peritoneal/ascites Fluid Appearance Clear Fluid WBC 87.0 Fluid RBC 654.0 H Fluid Tot Cell Count 100 H Fluid Mononuclear Cell 92.0 H Fl Polymorphonucl Cell 8.0 H Fluid Comment Yellow color Urine Opiates Screen Urine Methadone Screen Ur Barbiturates Screen Ur Phencyclidine Scrn Ur Amphetamines Screen U Benzodiazepines Scrn U Oth Cocaine Metabols U Cannabinoids Screen Alcohol, Quantitative Hepatitis A IgM Ab Hep Bs Antigen Hep B Core IgM Ab Hepatitis C Antibody Blood Type Antibody Screen BBK History Checked Assessment & Plan - Assessment and Plan (Free Text) Assessment: 57 year old male, whose pmhx includes hypertension, hyperlipidemia, diabetes type 2, liver cirrhosis with ascites, COPD, EtOH abuse, presents with scleral icterus , increasingly sob, abdominal distention. Found to have transaminitis, elevated T bili. 2/2 decompensated alcoholic hepatitis vs liver cirrhosis. - Recommend a diagnostic paracenthesis to r/o SBP - Cont abx with Zosyn for SBP ppx - F/u septic work up - F/u GI recs - Cont to monitor for any changes Case and plan was reviewed and discussed with Dr Peng. <Charles Peng - Last Filed: 04/22/18 18:06> Meds - Medications Medications: Current Medications Acetylcysteine (Acetylcysteine 20%) 4 ml IH [id number] [facility] Last Admin: 04/22/18 14:12 Dose: 4 ml Chlordiazepoxide (Librium) 25 mg PO Q8 [facility]; Taper Stop: 04/25/18 17:59 Last Admin: 04/22/18 13:22 Dose: 25 mg Chlordiazepoxide (Librium) 25 mg PO Q4H PRN PRN Reason: Withdrawl Chlordiazepoxide (Librium) 50 mg PO Q4H PRN PRN Reason: Symptoms of alcohol withdrawl Clonidine HCl (Catapres) 0.1 mg PO Q4H PRN PRN Reason: Symptoms of alcohol withdrawl Diazepam (Valium) 5 mg PO Q8H PRN PRN Reason: Symptoms of alcohol withdrawl Diltiazem HCl (Cardizem Cd) 120 mg PO DAILY [facility] Last Admin: 04/22/18 10:14 Dose: 120 mg Docusate Sodium (Colace) 100 mg PO TID [facility] Last Admin: 04/22/18 14:41 Dose: 100 mg Ergocalciferol (Drisdol 50,000 Intl Units Cap) 1 cap PO Q7D [facility] Last Admin: 04/21/18 18:04 Dose: 1 cap Folic Acid (Folic Acid) 1 mg PO DAILY [facility] Furosemide (Lasix) 40 mg IVP DAILY [facility] Last Admin: 04/22/18 14:41 Dose: 40 mg Haloperidol Lactate (Haldol) 2 mg IM Q8H PRN PRN Reason: Agitation Piperacillin Sod/Tazobactam Sod (Zosyn 3.375 In Ns 100ml) 100 mls @ 25 mls/hr IVPB Q8 [facility]; Protocol Stop: 04/30/18 22:01 Last Admin: 04/22/18 15:20 Dose: 25 mls/hr Levalbuterol HCl (Xopenex) 0.63 mg IH [id number] [facility] Last Admin: 04/22/18 14:12 Dose: 0.63 mg Levothyroxine Sodium (Synthroid) 50 mcg PO 0600 [facility] Last Admin: 04/22/18 05:01 Dose: 50 mcg Lorazepam (Ativan) 1 mg IVP Q4H PRN PRN Reason: Symptoms of alcohol withdrawl Lorazepam (Ativan) 1 mg PO Q4H PRN PRN Reason: Symptoms of alcohol withdrawl Lorazepam (Ativan) 1 mg PO Q6H [facility] Stop: 04/23/18 16:59 Lorazepam (Ativan) 1 mg PO Q8H [facility] Stop: 04/24/18 16:59 Lorazepam (Ativan) 1 mg PO Q12H [facility] Stop: 04/25/18 16:59 Lorazepam (Ativan) 1 mg PO 1700 [facility] Stop: 04/26/18 16:59 Montelukast Sodium (Singulair) 10 mg PO HS [facility] Last Admin: 04/21/18 21:51 Dose: 10 mg Multivitamins/Minerals (Therapeutic-M Tab) 1 tab PO DAILY [facility] Last Admin: 04/22/18 10:13 Dose: 1 tab Nicotine (Nicoderm Cq) 1 patch TD DAILY [facility] Last Admin: 04/22/18 13:21 Dose: 1 patch Mirabegron [ Myrbetriq] 1 Tab ( Home Med) 1 tab PO DAILY [facility] Last Admin: 04/22/18 10:16 Dose: Not Given Ondansetron HCl (Zofran Inj) 4 mg IVP Q4H PRN PRN Reason: Nausea/Vomiting Pantoprazole Sodium (Protonix Inj) 40 mg IVP Q12 [facility] Last Admin: 04/22/18 10:12 Dose: 40 mg Spironolactone (Aldactone) 50 mg PO BID [facility] Last Admin: 04/22/18 14:41 Dose: 50 mg Tamsulosin HCl (Flomax) 1 mg PO DAILY [facility] Last Admin: 04/22/18 10:13 Dose: 1 mg Thiamine HCl (Vitamin B1 Tab) 100 mg PO DAILY [facility] Last Admin: 04/22/18 10:13 Dose: 100 mg Trazodone HCl (Desyrel) 50 mg PO HS PRN PRN Reason: Insomnia Results - Vital Signs Recent Vital Signs: Last Vital Signs Temp 97.9 F 04/22/18 14:00 Pulse 101 H 04/22/18 14:00 Resp 20 04/22/18 14:00 BP 122/78 04/22/18 14:41 Pulse Ox 96 04/22/18 14:00 - Labs Result Diagrams: 04/22/18 06:30 04/22/18 06:30 Labs: Laboratory Results - last 24 hr 04/21/18 04/21/18 04/21/18 15:30 16:10 17:30 WBC RBC Hgb Hct MCV MCH MCHC RDW Plt Count MPV Gran % Lymph % (Auto) [place] % (Auto) Eos % (Auto) Baso % (Auto) Gran # Lymph # (Auto) [place] # (Auto) Eos # (Auto) Baso # (Auto) Sodium Potassium Chloride Carbon Dioxide Anion Gap BUN Creatinine Est GFR ( Amer) Est GFR (Non-Af Amer) POC Glucose (mg/dL) Random Glucose Calcium Phosphorus Magnesium Total Bilirubin Direct Bilirubin GGT 1258 H AST ALT Alkaline Phosphatase Ammonia Total Protein Albumin Globulin Albumin/Globulin Ratio Triglycerides 98 Cholesterol 98 L LDL Cholesterol Direct 64 HDL Cholesterol 21 L Free T4 Thyroxine (T4) Free T3 pg/mL 2.83 Total T3 TSH 3rd Generation Urine Color Urine Appearance Urine pH Ur Specific [place] Urine Protein Urine Glucose (UA) Urine Ketones Urine Blood Urine Nitrate Urine Bilirubin Urine Urobilinogen Ur Leukocyte Esterase Urine RBC Urine WBC Ur Epithelial Cells Fluid Source Fluid Appearance Fluid WBC Fluid RBC Fluid Tot Cell Count Fluid Mononuclear Cell Fl Polymorphonucl Cell Fluid Comment Urine Opiates Screen Urine Methadone Screen Ur Barbiturates Screen Ur Phencyclidine Scrn Ur Amphetamines Screen U Benzodiazepines Scrn U Oth Cocaine Metabols U Cannabinoids Screen Hepatitis A IgM Ab Hep Bs Antigen Hep B Core IgM Ab Hepatitis C Antibody Blood Type A POSITIVE Antibody Screen Negative 04/21/18 04/21/18 04/21/18 17:30 18:16 18:16 WBC RBC Hgb Hct MCV MCH MCHC RDW Plt Count MPV Gran % Lymph % (Auto) [place] % (Auto) Eos % (Auto) Baso % (Auto) Gran # Lymph # (Auto) [place] # (Auto) Eos # (Auto) Baso # (Auto) Sodium Potassium Chloride Carbon Dioxide Anion Gap BUN Creatinine Est GFR ( Amer) Est GFR (Non-Af Amer) POC Glucose (mg/dL) Random Glucose Calcium Phosphorus Magnesium Total Bilirubin Direct Bilirubin GGT AST ALT Alkaline Phosphatase Ammonia Total Protein Albumin Globulin Albumin/Globulin Ratio Triglycerides Cholesterol LDL Cholesterol Direct HDL Cholesterol Free T4 1.62 Thyroxine (T4) 8.3 Free T3 pg/mL Total T3 0.83 L TSH 3rd Generation 11.40 H Urine Color Yellow Urine Appearance Cloudy Urine pH 6.5 Ur Specific [place] >= 1.030 Urine Protein 100 H Urine Glucose (UA) 100 H Urine Ketones 40 H Urine Blood Trace-intact H Urine Nitrate Positive H Urine Bilirubin Large H Urine Urobilinogen >=8.0 Ur Leukocyte Esterase Negative Urine RBC 1 - 3 H Urine WBC 0 - 2 Ur Epithelial Cells 0 - 2 Fluid Source Fluid Appearance Fluid WBC Fluid RBC Fluid Tot Cell Count Fluid Mononuclear Cell Fl Polymorphonucl Cell Fluid Comment Urine Opiates Screen Positive H Urine Methadone Screen Negative Ur Barbiturates Screen Negative Ur Phencyclidine Scrn Positive H Ur Amphetamines Screen Negative U Benzodiazepines Scrn Positive H U Oth Cocaine Metabols Negative U Cannabinoids Screen Positive H Hepatitis A IgM Ab Hep Bs Antigen Hep B Core IgM Ab Hepatitis C Antibody Blood Type Antibody Screen 04/22/18 04/22/18 04/22/18 06:30 06:30 06:30 WBC 13.6 H RBC 3.36 L Hgb 11.5 L Hct 34.2 L MCV 101.8 MCH 34.2 MCHC 33.6 RDW 16.9 H Plt Count 136 MPV 10.2 Gran % 80.0 H Lymph % (Auto) 11.2 L [place] % (Auto) 8.1 H Eos % (Auto) 0.4 L Baso % (Auto) 0.3 Gran # 10.91 H Lymph # (Auto) 1.5 [place] # (Auto) 1.1 H Eos # (Auto) 0.1 Baso # (Auto) 0.04 Sodium 134 Potassium 4.0 Chloride 102 Carbon Dioxide 23 Anion Gap 13 BUN 11 Creatinine 0.8 Est GFR ( Amer) > 60 Est GFR (Non-Af Amer) > 60 POC Glucose (mg/dL) Random Glucose 92 Calcium 7.9 L Phosphorus Magnesium 1.6 L Total Bilirubin 5.3 H Direct Bilirubin 4.0 H GGT AST 202 H ALT 60 H Alkaline Phosphatase 367 H Ammonia Total Protein 6.3 Albumin 2.8 L Globulin 3.5 Albumin/Globulin Ratio 0.8 L Triglycerides Cholesterol LDL Cholesterol Direct HDL Cholesterol Free T4 Thyroxine (T4) Free T3 pg/mL Total T3 TSH 3rd Generation Urine Color Urine Appearance Urine pH Ur Specific [place] Urine Protein Urine Glucose (UA) Urine Ketones Urine Blood Urine Nitrate Urine Bilirubin Urine Urobilinogen Ur Leukocyte Esterase Urine RBC Urine WBC Ur Epithelial Cells Fluid Source Fluid Appearance Fluid WBC Fluid RBC Fluid Tot Cell Count Fluid Mononuclear Cell Fl Polymorphonucl Cell Fluid Comment Urine Opiates Screen Urine Methadone Screen Ur Barbiturates Screen Ur Phencyclidine Scrn Ur Amphetamines Screen U Benzodiazepines Scrn U Oth Cocaine Metabols U Cannabinoids Screen Hepatitis A IgM Ab Negative Hep Bs Antigen Negative Hep B Core IgM Ab Negative Hepatitis C Antibody Negative Blood Type Antibody Screen 04/22/18 04/22/18 04/22/18 06:30 06:40 12:00 WBC RBC Hgb Hct MCV MCH MCHC RDW Plt Count MPV Gran % Lymph % (Auto) [place] % (Auto) Eos % (Auto) Baso % (Auto) Gran # Lymph # (Auto) [place] # (Auto) Eos # (Auto) Baso # (Auto) Sodium Potassium Chloride Carbon Dioxide Anion Gap BUN Creatinine Est GFR ( Amer) Est GFR (Non-Af Amer) POC Glucose (mg/dL) Random Glucose Calcium Phosphorus 3.6 Magnesium Total Bilirubin Direct Bilirubin GGT AST ALT Alkaline Phosphatase Ammonia 32 Total Protein Albumin Globulin Albumin/Globulin Ratio Triglycerides Cholesterol LDL Cholesterol Direct HDL Cholesterol Free T4 Thyroxine (T4) Free T3 pg/mL Total T3 TSH 3rd Generation Urine Color Urine Appearance Urine pH Ur Specific [place] Urine Protein Urine Glucose (UA) Urine Ketones Urine Blood Urine Nitrate Urine Bilirubin Urine Urobilinogen Ur Leukocyte Esterase Urine RBC Urine WBC Ur Epithelial Cells Fluid Source Peritoneal/ascites Fluid Appearance Clear Fluid WBC 87.0 Fluid RBC 654.0 H Fluid Tot Cell Count 100 H Fluid Mononuclear Cell 92.0 H Fl Polymorphonucl Cell 8.0 H Fluid Comment Yellow color Urine Opiates Screen Urine Methadone Screen Ur Barbiturates Screen Ur Phencyclidine Scrn Ur Amphetamines Screen U Benzodiazepines Scrn U Oth Cocaine Metabols U Cannabinoids Screen Hepatitis A IgM Ab Hep Bs Antigen Hep B Core IgM Ab Hepatitis C Antibody Blood Type Antibody Screen 04/22/18 16:05 WBC RBC Hgb Hct MCV MCH MCHC RDW Plt Count MPV Gran % Lymph % (Auto) [place] % (Auto) Eos % (Auto) Baso % (Auto) Gran # Lymph # (Auto) [place] # (Auto) Eos # (Auto) Baso # (Auto) Sodium Potassium Chloride Carbon Dioxide Anion Gap BUN Creatinine Est GFR ( Amer) Est GFR (Non-Af Amer) POC Glucose (mg/dL) 134 H Random Glucose Calcium Phosphorus Magnesium Total Bilirubin Direct Bilirubin GGT AST ALT Alkaline Phosphatase Ammonia Total Protein Albumin Globulin Albumin/Globulin Ratio Triglycerides Cholesterol LDL Cholesterol Direct HDL Cholesterol Free T4 Thyroxine (T4) Free T3 pg/mL Total T3 TSH 3rd Generation Urine Color Urine Appearance Urine pH Ur Specific [place] Urine Protein Urine Glucose (UA) Urine Ketones Urine Blood Urine Nitrate Urine Bilirubin Urine Urobilinogen Ur Leukocyte Esterase Urine RBC Urine WBC Ur Epithelial Cells Fluid Source Fluid Appearance Fluid WBC Fluid RBC Fluid Tot Cell Count Fluid Mononuclear Cell Fl Polymorphonucl Cell Fluid Comment Urine Opiates Screen Urine Methadone Screen Ur Barbiturates Screen Ur Phencyclidine Scrn Ur Amphetamines Screen U Benzodiazepines Scrn U Oth Cocaine Metabols U Cannabinoids Screen Hepatitis A IgM Ab Hep Bs Antigen Hep B Core IgM Ab Hepatitis C Antibody Blood Type Antibody Screen Assessment & Plan - Assessment and Plan (Free Text) Assessment: Infectious diseases Attending Physician Attestation Patient seen and examined, discussed with medical practitioners. I have reviewed the patient's history of present illness, past medical, social, personal and family histories, pertinent physical exam findings, course so far in this hospital admission, pertinent laboratory and imaging results. I agree with the above findings, assessment and plan. In addition, started Zosyn for patient with probable alcoholic hepatitis with ascites R/O SBP. Follow up ascitic fluid analysis.
--- NOTE | 2018-04-22 16:40 | CON ---
DATE: 04/22/2018 GASTROENTEROLOGY CONSULTATION REQUESTING PHYSICIAN: Rai Maya MD REASON FOR CONSULTATION: I have been asked to see this 57-year-old male with longstanding history of alcohol abuse with consumption of two to three pints of vodka daily for the last 30 years, history of cirrhosis of the liver, history of type 2 diabetes mellitus, hypertension, hyperlipidemia, who comes to the hospital with abdominal distention. In the emergency room, the patient was noted to be jaundiced. He drank on the day of admission to the hospital. He currently denies any abdominal pain, nausea, vomiting. He denies rectal bleeding or hematemesis. PAST MEDICAL HISTORY: As above. Again, he has a history of alcohol-induced cirrhosis of the liver, hypertension, type 2 diabetes mellitus, hyperlipidemia, alcohol use. PAST SURGICAL HISTORY: Notable for right ankle surgery, right knee surgery, hemorrhoidectomy, cervical disk surgery. SOCIAL HISTORY: The patient smokes up to a pack of cigarettes per day. He consumes one to two pints of vodka daily for the last 30 years. He also smokes marijuana. FAMILY HISTORY: Noncontributory. REVIEW OF SYSTEMS: A 14-point review of systems is notable for increasing abdominal girth. PHYSICAL EXAMINATION: GENERAL: Middle-aged male, lying in bed, in no acute distress. VITAL SIGNS: Reveal temperature of 99, blood pressure 131/76, T-max is 100.6, heart rate of 89. HEENT: Reveal sclerae to be icteric. Conjunctivae pink. NECK: Supple. CHEST: Reveals distant breath sounds. HEART: Reveals regular rate and rhythm. ABDOMEN: Soft, nontender. No mass. It is distended. EXTREMITIES: Show no edema. There is no asterixis. LABORATORY DATA: Reveal white blood cell count 13.6, hemoglobin 11.5. Chemistries reveal AST of 202, ALT 60, alkaline phosphatase of 367, total bilirubin of 5.3, GTT of 1258. IMPRESSION: A 57-year-old alcoholic with abdominal distention and jaundice, all related to alcoholic cirrhosis. Ultrasound shows hepatomegaly with steatosis and ascites. He continues to drink. He is at risk for alcohol withdrawal. With low-grade temperature, would request Interventional Radiology for paracentesis to rule out spontaneous bacterial peritonitis. RECOMMENDATIONS: 1. Alcohol rehab. 2. We will start the patient on Aldactone 50 mg three times a day. 3. Close observation for alcohol withdrawal. 4. IR evaluation for a diagnostic paracentesis. Gustavo Mcdonald MD
--- NOTE | 2018-04-22 18:27 | US ---
PROCEDURE: Ultrasound guided paracentesis. HISTORY: Alcoholic cirrhosis. New onset ascites. Needs diagnostic and therapeutic paracentesis PHYSICIAN(S): Jeronimo Adrian MD. TECHNIQUE: The relative risks and indications for the procedure were explained to the patient and informed written consent obtained. Sonography of the abdomen was performed in a supine position. This revealed a moderate amount of non-loculated ascites, greatest in the right lower quadrant. A puncture site was selected and the area was prepped and draped in the usual sterile fashion. 1% Xylocaine was used to anesthetize the skin and soft tissues. A 7 Martiniquais paracentesis catheter was trocared into the right lower quadrantand 4800 cc of moreno fluid aspirated. The appropriate labs were sent. IMPRESSION: Ultrasound-guided paracentesis in the right lower quadrant. 4800 cc of fluid were aspirated. Labs were sent
--- NOTE | 2018-04-22 19:41 | CON ---
DATE: 04/22/2018 HISTORY OF PRESENT ILLNESS: The patient is a 57-year-old white male with a history of severe alcohol dependency who was admitted to the medical floor after he presented due to complaints of increasing SOB, abdominal distention, and jaundice-like symptoms. The patient has been drinking on a daily basis and Psychiatry was consulted due to the patient's alcohol dependency. Please note that the patient has no prior psychiatric history except for seeing his therapist when he was 11 years old. The patient has had a very long history of alcohol dependency and has been in detox and rehab at least five times recently. He is alert and oriented to month, year, location, and circumstances. He denies having any depression at this time, any suicidal thoughts. Denies having any hallucinations even during intoxication or any withdrawal from alcohol. The patient's responses are generally coherent and relevant to questioning and consistent with repeated questioning. The patient reports having some interest in getting substance abuse counseling and treatment, however, seems generally ambivalent about this recommendation. However, it does appear that he will be open to more information as his medical condition improves on the medical floor. His insight is considered to be poor regarding his alcohol use and its direct effects on his lifestyle. Labs and vitals were reviewed. Of note, his UDS was positive for opiates, PCP, benzodiazepines, marijuana, and on 04/21/2018. CURRENT PSYCHIATRIC MEDICATIONS: Include Librium 50 mg every 4 hours as needed as well as 25 mg p.o. every 4 hours p.r.n., Ativan 1 mg IV every 4 hours p.r.n. and 1 mg p.o. every 4 hours p.r.n. as well as 1 mg every 6 hours, 1 mg p.o. every 8 hours, 1 mg p.o. every 12 hours consistent with taper from 114 to 116 and trazodone 50 mg at bedtime p.r.n. PSYCHIATRIC HISTORY: The patient denies any prior psychiatric treatment in the past. Denies outpatient . Denies any psychiatric admissions or history of suicide attempts. SOCIAL HISTORY: The patient was born and raised . He is . He has one child. He lives in [facility]. He is not working. He has polysubstance abuse history. Current UDS was visible for being positive for opiates, benzos, PCP, alcohol, and marijuana. The patient also drinks about a [id number] of alcohol daily and has been in rehab/detox at least five times recently. IMPRESSION: Polysubstance dependence, severe. The patient specifically has alcohol dependency severe, alcohol withdrawal. RECOMMENDATIONS: The patient denies having any psychiatric symptoms at this time. Denies hallucinations, suicidal thoughts, or depression. He also seems somewhat ambivalent about substance abuse counseling and treatment options that were presented to him today; however, he might be more open to these options as his medical condition improves. roll on worker should be involved in the patient's care and provide information regarding outpatient treatment for his substance dependency which is severe or even inpatient treatment for his substance dependency. The patient should be given adequate information about options of naltrexone, which can be given either inpatient or outpatient regardless the patient should not be discharged without any referrals. There is no psychiatric condition for me to treat at this time and he does not meet criteria for inpatient voluntary admission to our unit. Psychiatry will sign off. As a note, medical team should streamline the patient's benzodiazepines, the patient should only be on one type of benzodiazepines to treat alcohol withdrawal, either Ativan or Librium, not both and there is polypharmacy and he does not need two different types of benzos. I will leave it to medical team to continue with the patient's alcohol withdrawal benzo taper. Please re-consult as needed. Janene Gonzalez MD
--- NOTE | 2018-04-22 20:34 | CP.PCM.PN ---
<Joao Sy - Last Filed: 04/22/18 20:56> Subjective - Date & Time of Evaluation Date of Evaluation: 04/22/18 Time of Evaluation: 11:00 - Subjective Subjective: Patient seen and examined at bedside in no acute distress eating breakfast. As per nursing staff no acute vents overnight. Patient currently has no complaints. Denies abdominal pain, nausea, vomiting, back pain. Objective - Vital Signs/Intake and Output Vital Signs (last 24 hours): Temp Pulse Resp BP Pulse Ox 97.9 F 101 H 20 122/78 96 04/22/18 14:00 04/22/18 14:00 04/22/18 14:00 04/22/18 14:41 04/22/18 14:00 - Medications Medications: Current Medications Acetylcysteine (Acetylcysteine 20%) 4 ml IH [id number] [facility] Last Admin: 04/22/18 14:12 Dose: 4 ml Chlordiazepoxide (Librium) 25 mg PO Q8 [facility]; Taper Stop: 04/25/18 17:59 Last Admin: 04/22/18 13:22 Dose: 25 mg Chlordiazepoxide (Librium) 25 mg PO Q4H PRN PRN Reason: Withdrawl Chlordiazepoxide (Librium) 50 mg PO Q4H PRN PRN Reason: Symptoms of alcohol withdrawl Clonidine HCl (Catapres) 0.1 mg PO Q4H PRN PRN Reason: Symptoms of alcohol withdrawl Diazepam (Valium) 5 mg PO Q8H PRN PRN Reason: Symptoms of alcohol withdrawl Diltiazem HCl (Cardizem Cd) 120 mg PO DAILY [facility] Last Admin: 04/22/18 10:14 Dose: 120 mg Docusate Sodium (Colace) 100 mg PO TID [facility] Last Admin: 04/22/18 18:15 Dose: 100 mg Ergocalciferol (Drisdol 50,000 Intl Units Cap) 1 cap PO Q7D [facility] Last Admin: 04/21/18 18:04 Dose: 1 cap Folic Acid (Folic Acid) 1 mg PO DAILY [facility] Last Admin: 04/22/18 18:15 Dose: 1 mg Furosemide (Lasix) 40 mg IVP DAILY [facility] Last Admin: 04/22/18 14:41 Dose: 40 mg Haloperidol Lactate (Haldol) 2 mg IM Q8H PRN PRN Reason: Agitation Piperacillin Sod/Tazobactam Sod (Zosyn 3.375 In Ns 100ml) 100 mls @ 25 mls/hr IVPB Q8 [facility]; Protocol Stop: 04/30/18 22:01 Last Admin: 04/22/18 15:20 Dose: 25 mls/hr Levalbuterol HCl (Xopenex) 0.63 mg IH [id number] [facility] Last Admin: 04/22/18 14:12 Dose: 0.63 mg Levothyroxine Sodium (Synthroid) 50 mcg PO 0600 [facility] Last Admin: 04/22/18 05:01 Dose: 50 mcg Lorazepam (Ativan) 1 mg IVP Q4H PRN PRN Reason: Symptoms of alcohol withdrawl Lorazepam (Ativan) 1 mg PO Q4H PRN PRN Reason: Symptoms of alcohol withdrawl Lorazepam (Ativan) 1 mg PO Q6H [facility] Stop: 04/23/18 16:59 Last Admin: 04/22/18 18:15 Dose: 1 mg Lorazepam (Ativan) 1 mg PO Q8H [facility] Stop: 04/24/18 16:59 Lorazepam (Ativan) 1 mg PO Q12H [facility] Stop: 04/25/18 16:59 Lorazepam (Ativan) 1 mg PO 1700 [facility] Stop: 04/26/18 16:59 Montelukast Sodium (Singulair) 10 mg PO HS [facility] Last Admin: 04/21/18 21:51 Dose: 10 mg Multivitamins/Minerals (Therapeutic-M Tab) 1 tab PO DAILY [facility] Last Admin: 04/22/18 10:13 Dose: 1 tab Nicotine (Nicoderm Cq) 1 patch TD DAILY [facility] Last Admin: 04/22/18 13:21 Dose: 1 patch (Mirabegron [ Myrbetriq] 25 Mg) Home Med 25 mg PO DAILY [facility] Ondansetron HCl (Zofran Inj) 4 mg IVP Q4H PRN PRN Reason: Nausea/Vomiting Pantoprazole Sodium (Protonix Inj) 40 mg IVP Q12 [facility] Last Admin: 04/22/18 10:12 Dose: 40 mg Spironolactone (Aldactone) 50 mg PO BID [facility] Last Admin: 04/22/18 18:06 Dose: Not Given Tamsulosin HCl (Flomax) 0.4 mg PO DAILY [facility] Thiamine HCl (Vitamin B1 Tab) 100 mg PO DAILY [facility] Last Admin: 04/22/18 10:13 Dose: 100 mg Trazodone HCl (Desyrel) 50 mg PO HS PRN PRN Reason: Insomnia - Labs Labs: 04/22/18 06:30 04/22/18 06:30 PT 15.0 SECONDS (9.4-12.5) H 04/21/18 15:40 INR 1.31 04/21/18 15:40 APTT 43.2 Seconds (25.1-36.5) H 04/21/18 15:40 - Constitutional Appears: Non-toxic, No Acute Distress - Head Exam Head Exam: ATRAUMATIC, NORMAL INSPECTION, NORMOCEPHALIC - Eye Exam Eye Exam: Scleral icterus. absent: Normal appearance Pupil Exam: NORMAL ACCOMODATION - ENT Exam ENT Exam: Mucous Membranes Moist - Neck Exam Neck Exam: Full ROM, Normal Inspection - Respiratory Exam Respiratory Exam: Clear to Ausculation Bilateral, NORMAL BREATHING PATTERN - Cardiovascular Exam Cardiovascular Exam: REGULAR RHYTHM, +S1, +S2 - GI/Abdominal Exam GI & Abdominal Exam: Distended, Firm, Normal Bowel Sounds, Organomegaly (hepatomegaly). absent: Tenderness - Extremities Exam Extremities Exam: Pedal Edema - Neurological Exam Neurological Exam: Alert, Awake, CN II-XII Intact, Oriented x3 - Psychiatric Exam Psychiatric exam: Normal Affect, Normal Mood - Skin Skin Exam: Dry, Warm Assessment and Plan - Assessment and Plan (Free Text) Assessment: 57 year old male, whose pmhx includes hypertension, hyperlipidemia, diabetes type 2, liver cirrhosis with ascites, COPD, EtOH abuse, who presented to the ED after clinic visit to PMD where hwas noted to have scleral icterus and 11 lb weight gain. Patient also at the time complained of shortness of breath and acute abdominal distention. Plan: Abdominal distention due to ascities (first time onset) seconary to Alcoholic hepatitis vs SBP Discriminant Function in this patient is 23.7 and therefore does not require glucocorticoid therapy for alcoholic hepatitis Paracentesis performed today; 4800 ccs removed. Labs sent: cell count, gram stain, ldh, glucose, albumin, cytology, cultures for ascitic fluid to r/o SPB Patient started on zosyn as per ID Alcohol abuse Alcohol cessation discussed Librium and ativan for withdrawals on board <Rai Maya U - Last Filed: 04/27/18 23:16> Objective - Vital Signs/Intake and Output Vital Signs (last 24 hours): Temp Pulse Resp BP Pulse Ox 98.3 F 89 19 110/77 99 04/25/18 14:00 04/25/18 14:00 04/25/18 14:00 04/25/18 14:00 04/25/18 14:00 - Labs Labs: 04/25/18 05:30 04/25/18 05:30 PT 15.0 SECONDS (9.4-12.5) H 04/21/18 15:40 INR 1.31 04/21/18 15:40 APTT 43.2 Seconds (25.1-36.5) H 04/21/18 15:40 Attending/Attestation - Attestation I have personally seen and examined this patient.: Yes I have fully participated in the care of the patient.: Yes I have reviewed all pertinent clinical information, including history, physical exam and plan: Yes Notes (Text): Please see/read my dictated notes.
[2018-04-23] MEDS: Levalbuterol 0.63 MG/3 ML Inhal Soln UD IH SCH ×4 (02:04→21:03)
[2018-04-23] MEDS: Acetylcysteine 20% Inhal Soln (4ml) IH SCH ×4 (02:04→21:02)
[2018-04-23] MEDS: Piperacillin/Tazobact 3.375 gm 100 ML IVPB SCH (05:04)
[2018-04-23] MEDS: Levothyroxine 50 MCG TAB PO SCH (05:05)
[2018-04-23 08:13] LABS: ALB/GLOB RATIO 0.8 (1.1-1.8); ALBUMIN 2.8 g/dL (3.0-4.8); ALT/SGPT 63 U/L (7-56); AST/SGOT 182 U/L (17-59); BASO # 0.03 K/mm3 (0.0-2.0); BASO % 0.3 % (0.0-3.0); BILIRUBIN,DIRECT 3.9 mg/dL (0.0-0.4); BLOOD UREA NITROGEN 12 mg/dL (7-21); CALCIUM 8.1 mg/dL (8.4-10.5); EOS # 0.1 (0.0-0.7); EOS % 1.1 % (1.5-5.0); GFR NON-AFRICAN AMERICAN > 60; GRAN # 8.72 (1.4-6.5); GRAN % 78.3 % (50.0-68.0); HEMOGLOBIN 11.6 g/dL (14.0-18.0); LYMPH # 1.3 (1.2-3.4); LYMPH % 11.9 % (22.0-35.0); MEAN CELL VOLUME 101.8 fl (80.0-105.0); MEAN CORPUSCULAR HEMOGLOBIN 34.4 pg (25.0-35.0); MEAN CORPUSCULAR HGB CONC 33.8 g/dl (31.0-37.0); MEAN PLATELET VOLUME 10.2 fl (7.0-11.0); MONO # 0.9 (0.1-0.6); MONO % 8.4 % (1.0-6.0); RBC 3.37 10^6/uL (3.5-6.1); RED CELL DISTRIBUTION WIDTH 16.8 % (11.5-14.5); WHITE BLOOD COUNT 11.1 10^3/uL (4.5-11.0)
--- NOTE | 2018-04-23 08:28 | PN ---
DATE: 04/22/2018 SUBJECTIVE: The patient is seen in room 560, bed 1. The patient is out of bed to chair. The patient is alert, awake, responsive. Overnight nurse's notes were reviewed. PHYSICAL EXAMINATION: VITAL SIGNS: T-max 100.6; heart rate 106, 89, 101, 98; blood pressure 123/74, 131/76, 132/79; respirations 20; O2 sat 96%. HEAD: Normocephalic, atraumatic. HEENT: Shows pinkish conjunctivae, icteric sclerae. No oropharyngeal lesion. No neck rigidity. CHEST: Kyphosis. Positive rhonchi noted in upper lung field anteriorly. CARDIOVASCULAR: S1, S2, regular rhythm. ABDOMEN: Protuberant, distended. Tense ascites noted. Positive hepatomegaly noted. GENITALIA: Male. RECTAL: Deferred. EXTREMITY: Shows 1+ to 2+ pitting edema. MUSCULOSKELETAL: Shows a body mass index of 33. NEUROLOGIC: Cranial nerves II through XII intact. Gait examination is not tested. Vascular examination, palpable pulses. Cranial nerve II through XII intact. DIAGNOSTICS: On 04/22/2018, WBC 13.6, hemoglobin and hematocrit 11.5 and 34.2, platelets 136. Granulocytes 80% segs. PT/PTT 15 and 43.2. Sodium 134, potassium 4, chloride 102, CO2 of 23, anion gap 13, BUN 11, creatinine 0.8, GFR greater than 60, glucose 92, calcium 7.9, phosphorus 3.6, magnesium 1.6, total bili 5.3, direct bili 4, GGTP 1258, AST 202, ALT 60, alk phos 67. Ammonia has gone up to 32, normal ammonia range is 9 to 33. Total protein of 6.3, albumin 2.8. TSH is elevated at 11.4. Urinalysis noted. Urine drug screen noted. Hepatitis A, B, C serologies are negative. IMPRESSION: 1. Severe symptomatic new-onset massive ascites and abdominal distention with jaundice and obstructive jaundice. 2. Alcoholic cirrhosis. 3. Hepatomegaly and hepatic steatosis with large volume ascites. 4. Active alcohol, nicotine, and polysubstance abuse and dependence. 5. Low-grade fever. 6. Tachycardia. 7. Fever. 8. Questionable and possible spontaneous bacterial peritonitis. 9. Leukocytosis with granulocytosis. 10. Normocytic anemia. 11. Mild coagulopathy. 12. Hypomagnesemia. 13. Hyperbilirubinemia. 14. Severe transaminitis. 15. Hypothyroidism with elevated thyroid stimulating hormone. 16. Possible hyperammonemia. 17. Proteinuria, glycosuria, ketonuria, microscopic hematuria, bilirubinuria, pyuria, bacteriuria. 18. Status post ultrasound-guided paracentesis with removal of almost 5 liters of ascitic fluid. 19. Urine drug screen positive for opiate, phencyclidine, benzodiazepine, and cannabinoid. 20. Active alcohol addiction and dependence with acute alcohol intoxication. 21. Bilateral lower extremity venous stasis. 22. History of hypertension. 23. History of hepatic cirrhosis and ascites. 24. Positive jaundice. 25. Active nicotine addiction and dependence. 26. Possible decompensated alcoholic hepatitis and alcoholic cirrhosis. 27. Bilateral lower extremity venous stasis. 28. Ultrasound-guided large volume paracentesis with removal of 4.8 liters of ascitic fluid. 29. History of poor compliance and noncompliance. 30. Hepatomegaly with hepatic steatosis and fatty infiltration of the liver with hepatic cirrhosis. 31. Hypovitaminosis D. 32. Prostatic hypertrophy. 33. Prostatic hypertrophy. 34. Gait dysfunction. 35. Deconditioning. 36. Neurosis. 37. Possible impending alcohol withdrawal and delirium tremens. 38. Hypomagnesemia. 39. Hypothyroidism. 1. New-onset large abdominopelvic ascites with obstructive jaundice and hyperbilirubinemia. 2. Tachycardia. 3. Low-grade fever. 4. Leukocytosis with granulocytosis. 5. Hyperbilirubinemia. 6. Severe transaminitis. 7. Proteinuria and microscopic hematuria. 8. History of active smoking, alcoholism and drug abuse. 9. Left lower lobe atelectasis. 10. Hepatic cirrhosis with hepatic fatty infiltration. 11. Pancreatic atrophy. 12. Colonic diverticulosis. 13. Large abdominopelvic ascites. PLAN: At this time, the patient has been ordered repeat labs for the morning. We are awaiting for the ascitic fluid studies. HIV is ordered, results pending. Repeat CBC ordered. Blood cultures, urine cultures, and ascitic fluid cultures are pending. CURRENT CONSULTATION: Gastroenterology, Interventional Radiology, Infectious Disease, and Psychiatry for evaluation of depression and alcohol, nicotine, polysubstance abuse and dependence. CURRENT MEDICATIONS: Mucomyst nebulizer 20% 4 mL every 6 hours [id number] with Xopenex nebulizer 0.63 mg every 6 hours, Aldactone 50 mg twice a day, Ativan tapering protocol and alcohol withdrawal and CIWA protocol, Cardizem CD 120 mg daily, clonidine 0.1 p.o. every four hours p.r.n., Colace 100 mg three times a day, Desyrel 50 mg at bedtime p.r.n., Drisdol 50,000 units weekly, Flomax 0.4 mg daily, folic acid 1 mg daily, Haldol 2 mg IM every 8 hours p.r.n., Lasix 40 mg IV daily, Librium tapering dose protocol and around the clock, magnesium sulfate 2 g rider x1, Myrbetriq 25 mg p.o. daily, nicotine patch 21 mg daily, Protonix 40 mg daily, Singulair 10 mg daily, Synthroid 50 mcg daily, multivitamin 1 tablet daily, Valium 5 mg p.o. every 8 hours p.r.n., vancomycin. The patient received a dose of vancomycin 1 g, thiamine 100 mg daily, Zofran 4 mg IV every 4 hours, Zosyn 3.375 g IV every 8 hours, incentive spirometry, oxygen 2 liters, BI stockings, SCDs, occupational therapy, physical therapy ordered. The patient was seen by Flux Plant Operator. The patient was seen by Physical Therapy. Recommendation by physical therapy was subacute rehab versus TCU. The patient will be continued on above therapeutic intervention until the patient is further stabilized. The patient will be continued on the above therapeutic intervention. The patient's overall prognosis is guarded. Dictated and electronically signed, not read. Rai Maya MD [email or web address]
[2018-04-23] MEDS ORDERED: Potassium Chloride 20 mEq ER Tab PO ONE (09:15)
--- NOTE | 2018-04-23 09:19 | CP.PCM.PN ---
<Ghanshyam Falk - Last Filed: 04/23/18 12:52> Subjective - Date & Time of Evaluation Date of Evaluation: 04/23/18 Time of Evaluation: 07:40 - Subjective Subjective: Infectious disease progress note: Pt seen and examined at bedside. No acute events overnight. S/p paracenthesis yesterday 4.8 L removed. Denies any complaints at this time. 12 Point ROS performed and neg other than stated above. Objective - Vital Signs/Intake and Output Vital Signs (last 24 hours): Temp Pulse Resp BP Pulse Ox 97.8 F 97 H 20 106/66 98 04/23/18 06:00 04/23/18 06:00 04/23/18 06:00 04/23/18 06:00 04/23/18 06:00 Intake and Output: 04/23/18 04/23/18 06:59 18:59 Output Total 500 Balance -500 - Medications Medications: Current Medications Acetylcysteine (Acetylcysteine 20%) 4 ml IH [id number] [facility] Last Admin: 04/23/18 07:13 Dose: 4 ml Chlordiazepoxide (Librium) 25 mg PO Q8 [facility]; Taper Stop: 04/25/18 17:59 Last Admin: 04/23/18 05:05 Dose: 25 mg Chlordiazepoxide (Librium) 25 mg PO Q4H PRN PRN Reason: Withdrawl Chlordiazepoxide (Librium) 50 mg PO Q4H PRN PRN Reason: Symptoms of alcohol withdrawl Clonidine HCl (Catapres) 0.1 mg PO Q4H PRN PRN Reason: Symptoms of alcohol withdrawl Diazepam (Valium) 5 mg PO Q8H PRN PRN Reason: Symptoms of alcohol withdrawl Diltiazem HCl (Cardizem Cd) 120 mg PO DAILY [facility] Last Admin: 04/22/18 10:14 Dose: 120 mg Docusate Sodium (Colace) 100 mg PO TID [facility] Last Admin: 04/22/18 18:15 Dose: 100 mg Ergocalciferol (Drisdol 50,000 Intl Units Cap) 1 cap PO Q7D [facility] Last Admin: 04/21/18 18:04 Dose: 1 cap Folic Acid (Folic Acid) 1 mg PO DAILY [facility] Last Admin: 04/22/18 18:15 Dose: 1 mg Furosemide (Lasix) 40 mg IVP DAILY [facility] Last Admin: 04/22/18 14:41 Dose: 40 mg Haloperidol Lactate (Haldol) 2 mg IM Q8H PRN PRN Reason: Agitation Piperacillin Sod/Tazobactam Sod (Zosyn 3.375 In Ns 100ml) 100 mls @ 25 mls/hr IVPB Q8 [facility]; Protocol Stop: 04/30/18 22:01 Last Admin: 04/23/18 05:04 Dose: 25 mls/hr Levalbuterol HCl (Xopenex) 0.63 mg IH [id number] [facility] Last Admin: 04/23/18 07:13 Dose: 0.63 mg Levothyroxine Sodium (Synthroid) 50 mcg PO 0600 [facility] Last Admin: 04/23/18 05:05 Dose: 50 mcg Lorazepam (Ativan) 1 mg IVP Q4H PRN PRN Reason: Symptoms of alcohol withdrawl Lorazepam (Ativan) 1 mg PO Q4H PRN PRN Reason: Symptoms of alcohol withdrawl Lorazepam (Ativan) 1 mg PO Q6H [facility] Stop: 04/23/18 16:59 Last Admin: 04/23/18 05:05 Dose: 1 mg Lorazepam (Ativan) 1 mg PO Q8H [facility] Stop: 04/24/18 16:59 Lorazepam (Ativan) 1 mg PO Q12H [facility] Stop: 04/25/18 16:59 Lorazepam (Ativan) 1 mg PO 1700 [facility] Stop: 04/26/18 16:59 Montelukast Sodium (Singulair) 10 mg PO HS [facility] Last Admin: 04/22/18 22:07 Dose: 10 mg Multivitamins/Minerals (Therapeutic-M Tab) 1 tab PO DAILY [facility] Last Admin: 04/22/18 10:13 Dose: 1 tab Nicotine (Nicoderm Cq) 1 patch TD DAILY [facility] Last Admin: 04/22/18 13:21 Dose: 1 patch (Mirabegron [ Myrbetriq] 25 Mg) Home Med 25 mg PO DAILY [facility] Ondansetron HCl (Zofran Inj) 4 mg IVP Q4H PRN PRN Reason: Nausea/Vomiting Pantoprazole Sodium (Protonix Inj) 40 mg IVP Q12 [facility] Last Admin: 04/22/18 22:06 Dose: 40 mg Spironolactone (Aldactone) 50 mg PO BID [facility] Last Admin: 04/22/18 18:06 Dose: Not Given Tamsulosin HCl (Flomax) 0.4 mg PO DAILY [facility] Thiamine HCl (Vitamin B1 Tab) 100 mg PO DAILY [facility] Last Admin: 04/22/18 10:13 Dose: 100 mg Trazodone HCl (Desyrel) 50 mg PO HS PRN PRN Reason: Insomnia - Labs Labs: 04/23/18 07:45 04/23/18 07:45 PT 15.0 SECONDS (9.4-12.5) H 04/21/18 15:40 INR 1.31 04/21/18 15:40 APTT 43.2 Seconds (25.1-36.5) H 04/21/18 15:40 - Constitutional Appears: No Acute Distress - Head Exam Head Exam: ATRAUMATIC, NORMOCEPHALIC - Eye Exam Eye Exam: EOMI - ENT Exam ENT Exam: Mucous Membranes Moist - Respiratory Exam Respiratory Exam: Clear to Ausculation Bilateral. absent: Rales, Rhonchi, Wheezes - Cardiovascular Exam Cardiovascular Exam: REGULAR RHYTHM, +S1, +S2 - GI/Abdominal Exam GI & Abdominal Exam: Distended, Soft. absent: Tenderness - Extremities Exam Extremities Exam: absent: Calf Tenderness, Pedal Edema - Neurological Exam Neurological Exam: Alert, Awake, Oriented x3 - Psychiatric Exam Psychiatric exam: Normal Mood - Skin Skin Exam: Dry, Warm Assessment and Plan - Assessment and Plan (Free Text) Assessment: 57 year old male, whose pmhx includes hypertension, hyperlipidemia, diabetes type 2, liver cirrhosis with ascites, COPD, EtOH abuse, presents with scleral icterus , increasingly sob, abdominal distention. Found to have transaminitis, elevated T bili. likely 2/2 decompensated alcoholic hepatitis. - S/p paracenthesis 4.8 L removed - neg for SBP - Discontinue Zosyn and monitor off abx - F/u septic work up - blood cx thus far neg - F/u GI recs - Cont to monitor for any changes Case and plan was reviewed and discussed with Dr Peng. <Charles Peng - Last Filed: 04/23/18 17:51> Objective - Vital Signs/Intake and Output Vital Signs (last 24 hours): Temp Pulse Resp BP Pulse Ox 98.5 F 100 H 20 120/75 96 04/23/18 14:00 04/23/18 14:00 04/23/18 14:00 04/23/18 14:00 04/23/18 14:00 Intake and Output: 04/23/18 04/23/18 06:59 18:59 Output Total 500 Balance -500 - Medications Medications: Current Medications Acetylcysteine (Acetylcysteine 20%) 4 ml IH [id number] [facility] Last Admin: 04/23/18 13:16 Dose: 4 ml Chlordiazepoxide (Librium) 25 mg PO Q8 [facility]; Taper Stop: 04/25/18 17:59 Last Admin: 04/23/18 14:58 Dose: 25 mg Chlordiazepoxide (Librium) 25 mg PO Q4H PRN PRN Reason: Withdrawl Chlordiazepoxide (Librium) 50 mg PO Q4H PRN PRN Reason: Symptoms of alcohol withdrawl Clonidine HCl (Catapres) 0.1 mg PO Q4H PRN PRN Reason: Symptoms of alcohol withdrawl Diazepam (Valium) 5 mg PO Q8H PRN PRN Reason: Symptoms of alcohol withdrawl Diltiazem HCl (Cardizem Cd) 120 mg PO DAILY [facility] Last Admin: 04/23/18 09:49 Dose: 120 mg Docusate Sodium (Colace) 100 mg PO TID [facility] Last Admin: 04/23/18 14:58 Dose: 100 mg Ergocalciferol (Drisdol 50,000 Intl Units Cap) 1 cap PO Q7D [facility] Last Admin: 04/21/18 18:04 Dose: 1 cap Folic Acid (Folic Acid) 1 mg PO DAILY [facility] Last Admin: 04/23/18 09:53 Dose: 1 mg Furosemide (Lasix) 40 mg IVP DAILY [facility] Last Admin: 04/23/18 09:53 Dose: 40 mg Haloperidol Lactate (Haldol) 2 mg IM Q8H PRN PRN Reason: Agitation Levalbuterol HCl (Xopenex) 0.63 mg IH [id number] [facility] Last Admin: 04/23/18 13:16 Dose: 0.63 mg Levothyroxine Sodium (Synthroid) 50 mcg PO 0600 [facility] Last Admin: 04/23/18 05:05 Dose: 50 mcg Lorazepam (Ativan) 1 mg IVP Q4H PRN PRN Reason: Symptoms of alcohol withdrawl Lorazepam (Ativan) 1 mg PO Q4H PRN PRN Reason: Symptoms of alcohol withdrawl Lorazepam (Ativan) 1 mg PO Q8H [facility] Stop: 04/24/18 16:59 Lorazepam (Ativan) 1 mg PO Q12H [facility] Stop: 04/25/18 16:59 Lorazepam (Ativan) 1 mg PO 1700 [facility] Stop: 04/26/18 16:59 Montelukast Sodium (Singulair) 10 mg PO HS [facility] Last Admin: 04/22/18 22:07 Dose: 10 mg Multivitamins/Minerals (Therapeutic-M Tab) 1 tab PO DAILY [facility] Last Admin: 04/23/18 09:50 Dose: 1 tab Nicotine (Nicoderm Cq) 1 patch TD DAILY [facility] Last Admin: 04/23/18 09:52 Dose: 1 patch (Mirabegron [ Myrbetriq] 25 Mg) Home Med 25 mg PO DAILY [facility] Last Admin: 04/23/18 09:59 Dose: Not Given Ondansetron HCl (Zofran Inj) 4 mg IVP Q4H PRN PRN Reason: Nausea/Vomiting Pantoprazole Sodium (Protonix Ec Tab) 40 mg PO Q12 [facility] Spironolactone (Aldactone) 50 mg PO BID [facility] Last Admin: 04/23/18 09:53 Dose: 50 mg Tamsulosin HCl (Flomax) 0.4 mg PO DAILY [facility] Last Admin: 04/23/18 09:53 Dose: 0.4 mg Thiamine HCl (Vitamin B1 Tab) 100 mg PO DAILY [facility] Last Admin: 04/23/18 09:56 Dose: 100 mg Trazodone HCl (Desyrel) 50 mg PO HS PRN PRN Reason: Insomnia - Labs Labs: 04/23/18 07:45 04/23/18 07:45 PT 15.0 SECONDS (9.4-12.5) H 04/21/18 15:40 INR 1.31 04/21/18 15:40 APTT 43.2 Seconds (25.1-36.5) H 04/21/18 15:40 Assessment and Plan - Assessment and Plan (Free Text) Assessment: Infectious diseases Attending Physician Attestation Patient seen and examined, discussed with medical safety director. I have reviewed the patient's history of present illness, past medical, social, personal and family histories, pertinent physical exam findings, course so far in this hospital admission, pertinent laboratory and imaging results. I agree with the above findings, assessment and plan. In addition, d/c antibiotics - ascitic fluid does not show evidence of bacterial peritonitis.
[2018-04-23] MEDS: diltiaZEM 120 mg/24 Hours CD Cap PO SCH (09:49)
[2018-04-23] MEDS: Multivitamin With Minerals Tab PO SCH (09:50)
--- NOTE | 2018-04-23 11:58 | PN ---
DATE: 04/23/2018 SUBJECTIVE: The patient is in room 560, bed 1. Overnight nurse's notes were reviewed. No adverse events were reported or documented or notified. The patient underwent a large-volume paracentesis with removal of 4.8 liters of ascitic fluid. OBJECTIVE: VITAL SIGNS: In the last 24 hours, T-max is down to 97.8. Yesterday's the patient had a fever of 100.6, heart rate 97, blood pressure 106/66, respiration 20, O2 sat 98%. HEENT: Head is normocephalic, atraumatic. Eyes; shows pinkish pale conjunctivae, icteric sclerae. No oropharyngeal lesion. Overgrown alfonso and poor personal hygiene noted. NECK: Shows positive surgical scar of the cervical spine. CHEST: Kyphosis. LUNGS: Shows positive upper lung blank anteriorly rhonchi. CARDIOVASCULAR: Shows S1, S2, regular rhythm. ABDOMEN: Soft, protuberant. Positive bowel sound. Decreasing abdominal distention noted. GENITALIA: Male. RECTAL: Deferred. EXTREMITIES: Still shows persistent swelling and edema of the lower extremity. MUSCULOSKELETAL: As per the body mass index. NEUROLOGIC: The patient is alert, awake, oriented x3. Cranial nerves II-XII limited. Gait examination is not tested. Motor strength appears to be 5/5 in upper and lower extremities. DIAGNOSTICS: On 04/23/2018; WBC count is down to 11.1, hemoglobin/hematocrit 11.6/34.3, platelet 136, which is low normal, granulocytes 78% segs. Sodium 34, potassium 3.4, chloride 101, CO2 of 27, BUN 12, creatinine 0.8, glucose 98, calcium 8.1, phosphorus 3.0, magnesium is low normal at 1.8, total bili 5.4, direct bili 3.9, AST 182, ALT 63, alk phos 346, blood cultures, urine cultures and ascitic fluid cultures are pending. IMPRESSION: 1. Questionable and possible spontaneous bacterial peritonitis. 2. Massive ascites. 3. Questionable systemic inflammatory response syndrome with leukocytosis, fever, and granulocytosis. 4. Normocytic anemia. 5. Relative thrombocytopenia. 6. Hypokalemia. 7. Hypomagnesemia. 8. Severe transaminitis secondary to severe alcoholic hepatitis. 9. Mild coagulopathy. 10. Hypothyroidism with elevated TSH. 11. Active nicotine, alcohol and polysubstance abuse addiction and dependence. 12. Chronic obstructive pulmonary disease. 13. Gait dysfunction. 14. 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 15. History of cervical spine surgery. 16. Hyperbilirubinemia. 17. Questionable and possible obstructive jaundice. 18. Hepatic cirrhosis with hepatomegaly and massive abdominopelvic ascites. 19. Status post ultrasound-guided large volume paracentesis with removal of 4.8 liters of ascites fluid. 20. History of hypertension. 21. Poor compliance. 22. Poor personal hygiene. 1. Severe symptomatic new-onset massive ascites and abdominal distention with jaundice and obstructive jaundice. 2. Alcoholic cirrhosis. 3. Hepatomegaly and hepatic steatosis with large volume ascites. 4. Active alcohol, nicotine, and polysubstance abuse and dependence. 5. Low-grade fever. 6. Tachycardia. 7. Fever. 8. Questionable and possible spontaneous bacterial peritonitis. 9. Leukocytosis with granulocytosis. 10. Normocytic anemia. 11. Mild coagulopathy. 12. Hypomagnesemia. 13. Hyperbilirubinemia. 14. Severe transaminitis. 15. Hypothyroidism with elevated thyroid stimulating hormone. 16. Possible hyperammonemia. 17. Proteinuria, glycosuria, ketonuria, microscopic hematuria, bilirubinuria, pyuria, bacteriuria. 18. Status post ultrasound-guided paracentesis with removal of almost 5 liters of ascitic fluid. 19. Urine drug screen positive for opiate, phencyclidine, benzodiazepine, and cannabinoid. 20. Active alcohol addiction and dependence with acute alcohol intoxication. 21. Bilateral lower extremity venous stasis. 22. History of hypertension. 23. History of hepatic cirrhosis and ascites. 24. Positive jaundice. 25. Active nicotine addiction and dependence. 26. Possible decompensated alcoholic hepatitis and alcoholic cirrhosis. 27. Bilateral lower extremity venous stasis. 28. Ultrasound-guided large volume paracentesis with removal of 4.8 liters of ascitic fluid. 29. History of poor compliance and noncompliance. 30. Hepatomegaly with hepatic steatosis and fatty infiltration of the liver with hepatic cirrhosis. 31. Hypovitaminosis D. 32. Prostatic hypertrophy. 33. Prostatic hypertrophy. 34. Gait dysfunction. 35. Deconditioning. 36. Neurosis. 37. Possible impending alcohol withdrawal and delirium tremens. 38. Hypomagnesemia. 39. Hypothyroidism. 1. New-onset large abdominopelvic ascites with obstructive jaundice and hyperbilirubinemia. 2. Tachycardia. 3. Low-grade fever. 4. Leukocytosis with granulocytosis. 5. Hyperbilirubinemia. 6. Severe transaminitis. 7. Proteinuria and microscopic hematuria. 8. History of active smoking, alcoholism and drug abuse. 9. Left lower lobe atelectasis. 10. Hepatic cirrhosis with hepatic fatty infiltration. 11. Pancreatic atrophy. 12. Colonic diverticulosis. 13. Large abdominopelvic ascites. PLAN: At this time, the patient is to be continued on IV antibiotics Zosyn as per Infectious Disease recommendation. We are awaiting for final culture reports. Results on sciatic fluid, blood cultures, urine cultures. The patient is currently on CIWA protocol. The patient is currently on Cardizem CD 120 mg daily, Aldactone twice a day, Lasix 40 IV daily, potassium supplementation is ordered for hypokalemia today. The patient is on GI, DVT prophylaxis. The patient has been ordered BI stockings, SCDs. The patient was seen by physical therapist, recommending TCU versus subacute rehab. The patient will be continued on all the medications as per the MAR of today which was reviewed. The patient has been updated about his medical condition, diagnosis, diagnostic test results, recommendation by all the physician involved the care of the patient. The patient has been again counseled about cessation of smoking cessation of alcohol, cessation of polysubstance drug use, which he acknowledged understand. Dictated and electronically signed, not read. Rai Maya MD DORETHA
--- NOTE | 2018-04-23 15:49 | CP.PCM.PN ---
<Joao Sy - Last Filed: 04/23/18 15:51> Subjective - Date & Time of Evaluation Date of Evaluation: 04/23/18 Time of Evaluation: 09:30 - Subjective Subjective: Patient seen and examined at bedside in no acute distress. Patient seen sitting comfortably on the bed. States he feels much better after paracentesis. Has no complaints at this time. Objective - Vital Signs/Intake and Output Vital Signs (last 24 hours): Temp Pulse Resp BP Pulse Ox 98.5 F 100 H 20 120/75 96 04/23/18 14:00 04/23/18 14:00 04/23/18 14:00 04/23/18 14:00 04/23/18 14:00 Intake and Output: 04/23/18 04/23/18 06:59 18:59 Output Total 500 Balance -500 - Medications Medications: Current Medications Acetylcysteine (Acetylcysteine 20%) 4 ml IH [id number] [facility] Last Admin: 04/23/18 13:16 Dose: 4 ml Chlordiazepoxide (Librium) 25 mg PO Q8 [facility]; Taper Stop: 04/25/18 17:59 Last Admin: 04/23/18 14:58 Dose: 25 mg Chlordiazepoxide (Librium) 25 mg PO Q4H PRN PRN Reason: Withdrawl Chlordiazepoxide (Librium) 50 mg PO Q4H PRN PRN Reason: Symptoms of alcohol withdrawl Clonidine HCl (Catapres) 0.1 mg PO Q4H PRN PRN Reason: Symptoms of alcohol withdrawl Diazepam (Valium) 5 mg PO Q8H PRN PRN Reason: Symptoms of alcohol withdrawl Diltiazem HCl (Cardizem Cd) 120 mg PO DAILY [facility] Last Admin: 04/23/18 09:49 Dose: 120 mg Docusate Sodium (Colace) 100 mg PO TID [facility] Last Admin: 04/23/18 14:58 Dose: 100 mg Ergocalciferol (Drisdol 50,000 Intl Units Cap) 1 cap PO Q7D [facility] Last Admin: 04/21/18 18:04 Dose: 1 cap Folic Acid (Folic Acid) 1 mg PO DAILY [facility] Last Admin: 04/23/18 09:53 Dose: 1 mg Furosemide (Lasix) 40 mg IVP DAILY [facility] Last Admin: 04/23/18 09:53 Dose: 40 mg Haloperidol Lactate (Haldol) 2 mg IM Q8H PRN PRN Reason: Agitation Levalbuterol HCl (Xopenex) 0.63 mg IH [id number] [facility] Last Admin: 04/23/18 13:16 Dose: 0.63 mg Levothyroxine Sodium (Synthroid) 50 mcg PO 0600 [facility] Last Admin: 04/23/18 05:05 Dose: 50 mcg Lorazepam (Ativan) 1 mg IVP Q4H PRN PRN Reason: Symptoms of alcohol withdrawl Lorazepam (Ativan) 1 mg PO Q4H PRN PRN Reason: Symptoms of alcohol withdrawl Lorazepam (Ativan) 1 mg PO Q6H [facility] Stop: 04/23/18 16:59 Last Admin: 04/23/18 12:49 Dose: 1 mg Lorazepam (Ativan) 1 mg PO Q8H [facility] Stop: 04/24/18 16:59 Lorazepam (Ativan) 1 mg PO Q12H [facility] Stop: 04/25/18 16:59 Lorazepam (Ativan) 1 mg PO 1700 [facility] Stop: 04/26/18 16:59 Montelukast Sodium (Singulair) 10 mg PO HS [facility] Last Admin: 04/22/18 22:07 Dose: 10 mg Multivitamins/Minerals (Therapeutic-M Tab) 1 tab PO DAILY [facility] Last Admin: 04/23/18 09:50 Dose: 1 tab Nicotine (Nicoderm Cq) 1 patch TD DAILY [facility] Last Admin: 04/23/18 09:52 Dose: 1 patch (Mirabegron [ Myrbetriq] 25 Mg) Home Med 25 mg PO DAILY [facility] Last Admin: 04/23/18 09:59 Dose: Not Given Ondansetron HCl (Zofran Inj) 4 mg IVP Q4H PRN PRN Reason: Nausea/Vomiting Pantoprazole Sodium (Protonix Ec Tab) 40 mg PO Q12 [facility] Spironolactone (Aldactone) 50 mg PO BID [facility] Last Admin: 04/23/18 09:53 Dose: 50 mg Tamsulosin HCl (Flomax) 0.4 mg PO DAILY [facility] Last Admin: 04/23/18 09:53 Dose: 0.4 mg Thiamine HCl (Vitamin B1 Tab) 100 mg PO DAILY [facility] Last Admin: 04/23/18 09:56 Dose: 100 mg Trazodone HCl (Desyrel) 50 mg PO HS PRN PRN Reason: Insomnia - Labs Labs: 04/23/18 07:45 04/23/18 07:45 PT 15.0 SECONDS (9.4-12.5) H 04/21/18 15:40 INR 1.31 04/21/18 15:40 APTT 43.2 Seconds (25.1-36.5) H 04/21/18 15:40 - Head Exam Head Exam: ATRAUMATIC, NORMAL INSPECTION, NORMOCEPHALIC - Eye Exam Eye Exam: Scleral icterus - ENT Exam ENT Exam: Mucous Membranes Moist - Neck Exam Neck Exam: Normal Inspection - Respiratory Exam Respiratory Exam: Clear to Ausculation Bilateral - Cardiovascular Exam Cardiovascular Exam: REGULAR RHYTHM, +S1, +S2 - GI/Abdominal Exam GI & Abdominal Exam: Distended, Soft (belly is softer in comparison to yesterday), Normal Bowel Sounds - Neurological Exam Neurological Exam: Alert, Awake, Oriented x3 - Psychiatric Exam Psychiatric exam: Normal Affect, Normal Mood Assessment and Plan - Assessment and Plan (Free Text) Assessment: 57 year old male, whose pmhx includes hypertension, hyperlipidemia, diabetes type 2, liver cirrhosis with ascites, COPD, EtOH abuse, who presented to the ED after clinic visit to PMD where he was noted to have scleral icterus and 11 lb weight gain. Patient also at the time complained of shortness of breath and acute abdominal distention. Plan: Abdominal distention due to ascities (first time onset) seconary to Alcoholic hepatitis vs SBP Maddrey's discriminant function in this patient is 23.7 and therefore does not require glucocorticoid therapy for alcoholic hepatitis Paracentesis performed; 4800 ccs removed. Labs sent and ascitic fluid is negative for SBP; therefore zosyn has been discontinued Continue with aldactone and furesomide (with Potassium supplementation) Alcohol abuse Alcohol cessation discussed Librium and ativan for withdrawals on board <Rai Maya U - Last Filed: 04/27/18 23:15> Objective - Vital Signs/Intake and Output Vital Signs (last 24 hours): Temp Pulse Resp BP Pulse Ox 98.3 F 89 19 110/77 99 04/25/18 14:00 04/25/18 14:00 04/25/18 14:00 04/25/18 14:00 04/25/18 14:00 - Labs Labs: 04/25/18 05:30 04/25/18 05:30 PT 15.0 SECONDS (9.4-12.5) H 04/21/18 15:40 INR 1.31 04/21/18 15:40 APTT 43.2 Seconds (25.1-36.5) H 04/21/18 15:40 Attending/Attestation - Attestation I have personally seen and examined this patient.: Yes I have fully participated in the care of the patient.: Yes I have reviewed all pertinent clinical information, including history, physical exam and plan: Yes Notes (Text): Please see/read my dictated notes.
--- NOTE | 2018-04-23 19:14 | PN ---
DATE: 04/23/2018 SUBJECTIVE: The patient is sitting up in a chair. Abdominal pain has resolved. He underwent a paracentesis yesterday. He denies any nausea or vomiting. PHYSICAL EXAMINATION VITAL SIGNS: Reveal a temperature of 97.8, blood pressure 106/66, heart rate of 97. HEENT: Reveals sclerae to be icteric, conjunctivae pink. NECK: Supple. CHEST: Reveals lungs to be clear. HEART: Reveals regular rate and rhythm. ABDOMEN: Softly distended, nontender. No mass. EXTREMITIES: Show no edema. LABORATORY DATA: Reveal white blood cell count 11.1, hemoglobin 11.6, platelet count 136,000. Ascites fluid reveals white blood cell count of 87, total cell count of 100 with 8 polymorphonuclear cells and 92 mononuclear cells, it was clear. Chemistries reveal AST of 182, ALT 63, alkaline phosphatase 346, total bilirubin down to 3.9. IMPRESSION: 1. Alcoholic hepatitis, alcoholic cirrhosis with ascites. 2. Decompensated cirrhosis with elevated liver enzymes. The cell count from ascites fluid does not indicate that this is subacute bacterial peritonitis. RECOMMENDATIONS: 1. Would continue Aldactone 50 mg twice a day. 2. Abstinence from alcohol with alcohol rehab. Gustavo Mcdonald MD
[2018-04-23] MEDS: Pantoprazole 40 mg EC Tab PO SCH (21:49)
[2018-04-24] MEDS: Levalbuterol 0.63 MG/3 ML Inhal Soln UD IH SCH ×4 (02:42→22:45)
[2018-04-24] MEDS: Acetylcysteine 20% Inhal Soln (4ml) IH SCH ×4 (02:42→22:44)
[2018-04-24] MEDS: Levothyroxine 50 MCG TAB PO SCH (05:10)
[2018-04-24 06:40] LABS: BASO # 0.06 K/mm3 (0.0-2.0); BASO % 0.5 % (0.0-3.0); EOS # 0.2 (0.0-0.7); EOS % 1.7 % (1.5-5.0); GRAN # 9.37 (1.4-6.5); GRAN % 73.5 % (50.0-68.0); HEMOGLOBIN 12.2 g/dL (14.0-18.0); LYMPH % 15.8 % (22.0-35.0); MEAN CELL VOLUME 102.6 fl (80.0-105.0); MEAN CORPUSCULAR HEMOGLOBIN 34.9 pg (25.0-35.0); MEAN PLATELET VOLUME 10.7 fl (7.0-11.0); MONO # 1.1 (0.1-0.6); MONO % 8.5 % (1.0-6.0); RBC 3.5 10^6/uL (3.5-6.1); RED CELL DISTRIBUTION WIDTH 17.1 % (11.5-14.5); WHITE BLOOD COUNT 12.8 10^3/uL (4.5-11.0)
[2018-04-24 06:57] LABS: ALB/GLOB RATIO 0.7 (1.1-1.8); ALBUMIN 2.7 g/dL (3.0-4.8); ALT/SGPT 61 U/L (7-56); AST/SGOT 162 U/L (17-59); BILIRUBIN,DIRECT 3.5 mg/dL (0.0-0.4); BLOOD UREA NITROGEN 12 mg/dL (7-21); GFR NON-AFRICAN AMERICAN > 60
[2018-04-24] MEDS ORDERED: Potassium Chloride 10 mEq ER Tab PO STA (08:18)
[2018-04-24] MEDS: Magnesium Sulfate 2 gm/50 ml 2 GM/50 ML BAG IVPB SCH ×2 (08:30→14:47)
--- NOTE | 2018-04-24 08:44 | CP.PCM.PN ---
<Ghanshyam Falk - Last Filed: 04/24/18 13:10> Subjective - Date & Time of Evaluation Date of Evaluation: 04/24/18 Time of Evaluation: 07:50 - Subjective Subjective: Infectious disease progress note: Pt seen and examined at bedside. No acute events overnight. Patient still complains of some abdominal distension and mild wheezing. Denies any complaints at this time. 12 Point ROS performed and neg other than stated above. Objective - Vital Signs/Intake and Output Vital Signs (last 24 hours): Temp Pulse Resp BP Pulse Ox 98.4 F 77 20 105/67 97 04/24/18 06:00 04/24/18 06:00 04/24/18 06:00 04/24/18 06:00 04/24/18 06:00 Intake and Output: 04/24/18 04/24/18 06:59 18:59 Intake Total 360 Balance 360 - Medications Medications: Current Medications Acetylcysteine (Acetylcysteine 20%) 4 ml IH [id number] REPLACED BY [facility] Last Admin: 04/24/18 07:14 Dose: 4 ml Chlordiazepoxide (Librium) 25 mg PO Q4H PRN PRN Reason: Withdrawl Clonidine HCl (Catapres) 0.1 mg PO Q4H PRN PRN Reason: Symptoms of alcohol withdrawl Diazepam (Valium) 5 mg PO Q8H PRN PRN Reason: Symptoms of alcohol withdrawl Diltiazem HCl (Cardizem Cd) 120 mg PO DAILY REPLACED BY [facility] Last Admin: 04/23/18 09:49 Dose: 120 mg Docusate Sodium (Colace) 100 mg PO TID REPLACED BY [facility] Last Admin: 04/23/18 18:33 Dose: 100 mg Ergocalciferol (Drisdol 50,000 Intl Units Cap) 1 cap PO Q7D REPLACED BY [facility] Last Admin: 04/21/18 18:04 Dose: 1 cap Folic Acid (Folic Acid) 1 mg PO DAILY REPLACED BY [facility] Last Admin: 04/23/18 09:53 Dose: 1 mg Furosemide (Lasix) 40 mg IVP DAILY REPLACED BY [facility] Last Admin: 04/23/18 09:53 Dose: 40 mg Haloperidol Lactate (Haldol) 2 mg IM Q8H PRN PRN Reason: Agitation Magnesium Sulfate (Magnesium Sulfate 2 Gm/50 Ml Water) 2 gm in 50 mls @ 50 mls/hr IVPB Q3H REPLACED BY [facility] Stop: 04/24/18 12:29 Last Admin: 04/24/18 08:30 Dose: 50 mls/hr Levalbuterol HCl (Xopenex) 0.63 mg IH [id number] REPLACED BY [facility] Last Admin: 04/24/18 07:14 Dose: 0.63 mg Levothyroxine Sodium (Synthroid) 50 mcg PO 0600 REPLACED BY [facility] Last Admin: 04/24/18 05:10 Dose: 50 mcg Lorazepam (Ativan) 1 mg IVP Q4H PRN PRN Reason: Symptoms of alcohol withdrawl Last Admin: 04/24/18 05:09 Dose: 1 mg Montelukast Sodium (Singulair) 10 mg PO HS REPLACED BY [facility] Last Admin: 04/23/18 21:49 Dose: 10 mg Multivitamins/Minerals (Therapeutic-M Tab) 1 tab PO DAILY REPLACED BY [facility] Last Admin: 04/23/18 09:50 Dose: 1 tab Nicotine (Nicoderm Cq) 1 patch TD DAILY REPLACED BY [facility] Last Admin: 04/23/18 09:52 Dose: 1 patch (Mirabegron [ Myrbetriq] 25 Mg) Home Med 25 mg PO DAILY REPLACED BY [facility] Last Admin: 04/23/18 09:59 Dose: Not Given Ondansetron HCl (Zofran Inj) 4 mg IVP Q4H PRN PRN Reason: Nausea/Vomiting Pantoprazole Sodium (Protonix Ec Tab) 40 mg PO Q12 REPLACED BY [facility] Last Admin: 04/23/18 21:49 Dose: 40 mg Spironolactone (Aldactone) 50 mg PO BID REPLACED BY [facility] Last Admin: 04/23/18 18:34 Dose: 50 mg Tamsulosin HCl (Flomax) 0.4 mg PO DAILY REPLACED BY [facility] Last Admin: 04/23/18 09:53 Dose: 0.4 mg Thiamine HCl (Vitamin B1 Tab) 100 mg PO DAILY REPLACED BY [facility] Last Admin: 04/23/18 09:56 Dose: 100 mg Trazodone HCl (Desyrel) 50 mg PO HS PRN PRN Reason: Insomnia - Labs Labs: 04/24/18 06:10 04/24/18 06:10 PT 15.0 SECONDS (9.4-12.5) H 04/21/18 15:40 INR 1.31 04/21/18 15:40 APTT 43.2 Seconds (25.1-36.5) H 04/21/18 15:40 - Constitutional Appears: No Acute Distress - Head Exam Head Exam: ATRAUMATIC, NORMOCEPHALIC - Eye Exam Eye Exam: EOMI - ENT Exam ENT Exam: Mucous Membranes Moist - Respiratory Exam Respiratory Exam: Clear to Ausculation Bilateral Additional comments: no r/r with mild wheezing - Cardiovascular Exam Cardiovascular Exam: RRR, +S1, +S2 - GI/Abdominal Exam GI & Abdominal Exam: Distended, Soft, Normal Bowel Sounds - Extremities Exam Extremities Exam: Normal Capillary Refill, Normal Inspection. absent: Calf Tenderness, Pedal Edema - Neurological Exam Neurological Exam: Alert, Awake, CN II-XII Intact, Normal Gait, Oriented x3 - Psychiatric Exam Psychiatric exam: Normal Mood - Skin Skin Exam: Dry, Intact, Warm Assessment and Plan - Assessment and Plan (Free Text) Assessment: 57 year old male, whose pmhx includes hypertension, hyperlipidemia, diabetes type 2, liver cirrhosis with ascites, COPD, EtOH abuse, presents with scleral icterus , increasingly sob, abdominal distention. Found to have transaminitis, elevated T bili. likely 2/2 decompensated alcoholic hepatitis. S/p paracenthesis 4.8 L removed - neg for SBP - Continue to monitor off abx as SBP was ruled out - Septic work up neg thus far - F/u GI recs - Cont to monitor for any changes Case and plan was reviewed and discussed with Dr Peng. <Charles Peng S - Last Filed: 04/24/18 21:07> Objective - Vital Signs/Intake and Output Vital Signs (last 24 hours): Temp Pulse Resp BP Pulse Ox 98.1 F 64 20 125/75 96 04/24/18 14:00 04/24/18 14:35 04/24/18 14:00 04/24/18 14:35 04/24/18 14:00 Intake and Output: 04/24/18 04/25/18 18:59 06:59 Intake Total 860 Output Total 500 Balance 360 - Medications Medications: Current Medications Acetylcysteine (Acetylcysteine 20%) 4 ml IH [id number] REPLACED BY [facility] Last Admin: 04/24/18 13:14 Dose: Not Given Chlordiazepoxide (Librium) 25 mg PO Q4H PRN PRN Reason: Withdrawl Clonidine HCl (Catapres) 0.1 mg PO Q4H PRN PRN Reason: Symptoms of alcohol withdrawl Diazepam (Valium) 5 mg PO Q8H PRN PRN Reason: Symptoms of alcohol withdrawl Diltiazem HCl (Cardizem Cd) 120 mg PO DAILY REPLACED BY [facility] Last Admin: 04/24/18 14:35 Dose: 120 mg Docusate Sodium (Colace) 100 mg PO TID REPLACED BY [facility] Last Admin: 04/24/18 17:38 Dose: 100 mg Ergocalciferol (Drisdol 50,000 Intl Units Cap) 1 cap PO Q7D REPLACED BY [facility] Last Admin: 04/21/18 18:04 Dose: 1 cap Folic Acid (Folic Acid) 1 mg PO DAILY REPLACED BY [facility] Last Admin: 04/24/18 14:35 Dose: 1 mg Furosemide (Lasix) 40 mg IVP DAILY REPLACED BY [facility] Last Admin: 04/24/18 14:34 Dose: 40 mg Haloperidol Lactate (Haldol) 2 mg IM Q8H PRN PRN Reason: Agitation Levalbuterol HCl (Xopenex) 0.63 mg IH [id number] REPLACED BY [facility] Last Admin: 04/24/18 13:15 Dose: Not Given Levothyroxine Sodium (Synthroid) 50 mcg PO 0600 REPLACED BY [facility] Last Admin: 04/24/18 05:10 Dose: 50 mcg Lorazepam (Ativan) 1 mg IVP Q4H PRN PRN Reason: Symptoms of alcohol withdrawl Last Admin: 04/24/18 05:09 Dose: 1 mg Montelukast Sodium (Singulair) 10 mg PO HS REPLACED BY [facility] Last Admin: 04/23/18 21:49 Dose: 10 mg Multivitamins/Minerals (Therapeutic-M Tab) 1 tab PO DAILY REPLACED BY [facility] Last Admin: 04/24/18 14:35 Dose: 1 tab Nicotine (Nicoderm Cq) 1 patch TD DAILY REPLACED BY [facility] Last Admin: 04/24/18 14:36 Dose: 1 patch (Mirabegron [ Myrbetriq] 25 Mg) Home Med 25 mg PO DAILY REPLACED BY [facility] Last Admin: 04/24/18 10:31 Dose: Not Given Ondansetron HCl (Zofran Inj) 4 mg IVP Q4H PRN PRN Reason: Nausea/Vomiting Pantoprazole Sodium (Protonix Ec Tab) 40 mg PO Q12 REPLACED BY [facility] Last Admin: 04/24/18 14:36 Dose: 40 mg Spironolactone (Aldactone) 50 mg PO TID REPLACED BY [facility] Last Admin: 04/24/18 17:38 Dose: 50 mg Tamsulosin HCl (Flomax) 0.4 mg PO DAILY REPLACED BY [facility] Last Admin: 04/24/18 14:35 Dose: 0.4 mg Thiamine HCl (Vitamin B1 Tab) 100 mg PO DAILY REPLACED BY [facility] Last Admin: 04/24/18 14:35 Dose: 100 mg Trazodone HCl (Desyrel) 50 mg PO HS PRN PRN Reason: Insomnia - Labs Labs: 04/24/18 06:10 04/24/18 06:10 PT 15.0 SECONDS (9.4-12.5) H 04/21/18 15:40 INR 1.31 04/21/18 15:40 APTT 43.2 Seconds (25.1-36.5) H 04/21/18 15:40 Assessment and Plan - Assessment and Plan (Free Text) Assessment: Infectious diseases Attending Physician Attestation Patient seen and examined, discussed with medical assistant float. I have reviewed the patient's history of present illness, past medical, social, personal and family histories, pertinent physical exam findings, course so far in this hospital admission, pertinent laboratory and imaging results. I agree with the above findings, assessment and plan. In addition, continue to monitor off antibiotics - patient with ascites from alcoholic liver cirrhosis without evidence of sponta neous bacterial peritonitis.
[2018-04-24] MEDS ORDERED: Propofol 10 mg/ml Inj (20 ML) ONE (10:55)
[2018-04-24] MEDS ORDERED: Midazolam 2 MG/2 ML VIAL ONE (10:55)
[2018-04-24] MEDS ORDERED: Etomidate 20 mg/10ml Inj IV ONE (11:10)
--- NOTE | 2018-04-24 11:28 | PN ---
DATE: 04/24/2018 LOCATION: The patient is in room 560, bed 1. SUBJECTIVE: The patient's overnight nurse's notes were reviewed. No adverse events were documented. OBJECTIVE: VITAL SIGNS: T-max 98.4, pulse 77, blood pressure 105/67, respirations 20, O2 sat 97%. HEENT: Head: Normocephalic, atraumatic. HEENT examination shows pinkish pale conjunctivae, icteric sclerae. No oropharyngeal lesion. No neck rigidity. CHEST: Kyphosis. LUNGS: Shows positive rhonchi upper lung blank anteriorly. CARDIOVASCULAR: S1, S2, regular rhythm. ABDOMEN: Distended, protuberant. Positive ascites. Positive anterior abdominal prominent veins noted. GENITALIA: Male. RECTAL: Deferred. EXTREMITIES: Shows still swelling of the lower extremity with decreasing pitting edema but persistent swelling. MUSCULOSKELETAL: Shows a body mass index as per the [place]. GAIT: Not tested. Motor strength is 5/5 in upper and lower extremity. PSYCHIATRIC: Questionable complaints of depression. DIAGNOSTICS: In 04/24, WBC 12.8, hemoglobin/hematocrit 12.2, 36, platelets 157. Granulocytes 73% segs. Sodium 136, potassium 3.7, chloride 103, CO2 26, BUN 12, creatinine 0.8, glucose 85, calcium 8.0, phosphorus 3.3, magnesium 1.5, total bili 4.8, direct bili 3.5, AST 162, ALT 61, alk phos 308, albumin 2.7. IMPRESSION AND PLAN: 1. New onset ascites. 2. Severe alcoholic hepatitis and severe alcoholic cirrhosis. 3. Severe obstructive jaundice with hyperbilirubinemia. 4. Severe transaminitis. 5. Leukocytosis with granulocytosis. 6. Normocytic anemia. 7. Granulocytosis. 8. Questionable and possible systemic inflammatory response syndrome. 9. Hypokalemia. 10. Hypomagnesemia. 11. Hyperbilirubinemia. 12. Mild hypoalbuminemia. 13. Active alcohol, nicotine and polysubstance abuse and dependence. 14. Questionable depression. 15. Status post large volume ultrasound-guided paracentesis with removal of 4.8 liters of ascitic fluid. 16. Alcoholic cirrhosis and hepatitis. 17. Hypomagnesemia. 1. Questionable and possible spontaneous bacterial peritonitis. 2. Massive ascites. 3. Questionable systemic inflammatory response syndrome with leukocytosis, fever, and granulocytosis. 4. Normocytic anemia. 5. Relative thrombocytopenia. 6. Hypokalemia. 7. Hypomagnesemia. 8. Severe transaminitis secondary to severe alcoholic hepatitis. 9. Mild coagulopathy. 10. Hypothyroidism with elevated TSH. 11. Active nicotine, alcohol and polysubstance abuse addiction and dependence. 12. Chronic obstructive pulmonary disease. 13. Gait dysfunction. 14. 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 15. History of cervical spine surgery. 16. Hyperbilirubinemia. 17. Questionable and possible obstructive jaundice. 18. Hepatic cirrhosis with hepatomegaly and massive abdominopelvic ascites. 19. Status post ultrasound-guided large volume paracentesis with removal of 4.8 liters of ascites fluid. 20. History of hypertension. 21. Poor compliance. 22. Poor personal hygiene. 1. Severe symptomatic new-onset massive ascites and abdominal distention with jaundice and obstructive jaundice. 2. Alcoholic cirrhosis. 3. Hepatomegaly and hepatic steatosis with large volume ascites. 4. Active alcohol, nicotine, and polysubstance abuse and dependence. 5. Low-grade fever. 6. Tachycardia. 7. Fever. 8. Questionable and possible spontaneous bacterial peritonitis. 9. Leukocytosis with granulocytosis. 10. Normocytic anemia. 11. Mild coagulopathy. 12. Hypomagnesemia. 13. Hyperbilirubinemia. 14. Severe transaminitis. 15. Hypothyroidism with elevated thyroid stimulating hormone. 16. Possible hyperammonemia. 17. Proteinuria, glycosuria, ketonuria, microscopic hematuria, bilirubinuria, pyuria, bacteriuria. 18. Status post ultrasound-guided paracentesis with removal of almost 5 liters of ascitic fluid. 19. Urine drug screen positive for opiate, phencyclidine, benzodiazepine, and cannabinoid. 20. Active alcohol addiction and dependence with acute alcohol intoxication. 21. Bilateral lower extremity venous stasis. 22. History of hypertension. 23. History of hepatic cirrhosis and ascites. 24. Positive jaundice. 25. Active nicotine addiction and dependence. 26. Possible decompensated alcoholic hepatitis and alcoholic cirrhosis. 27. Bilateral lower extremity venous stasis. 28. Ultrasound-guided large volume paracentesis with removal of 4.8 liters of ascitic fluid. 29. History of poor compliance and noncompliance. 30. Hepatomegaly with hepatic steatosis and fatty infiltration of the liver with hepatic cirrhosis. 31. Hypovitaminosis D. 32. Prostatic hypertrophy. 33. Prostatic hypertrophy. 34. Gait dysfunction. 35. Deconditioning. 36. Neurosis. 37. Possible impending alcohol withdrawal and delirium tremens. 38. Hypomagnesemia. 39. Hypothyroidism. 1. New-onset large abdominopelvic ascites with obstructive jaundice and hyperbilirubinemia. 2. Tachycardia. 3. Low-grade fever. 4. Leukocytosis with granulocytosis. 5. Hyperbilirubinemia. 6. Severe transaminitis. 7. Proteinuria and microscopic hematuria. 8. History of active smoking, alcoholism and drug abuse. 9. Left lower lobe atelectasis. 10. Hepatic cirrhosis with hepatic fatty infiltration. 11. Pancreatic atrophy. 12. Colonic diverticulosis. 13. Large abdominopelvic ascites. PLAN: At this time, the patient is to be continued on IV antibiotics as per Infectious Disease recommendation. The patient is awaiting Psychiatry evaluation and recommendation. The patient has also been seen by Gastroenterology, Infectious Disease and Psychiatry. The patient will be continued on the medications as per the MAR of today which was reviewed. The patient has again been counseled about cessation of smoking, alcohol and polysubstance abuse and drug use. Dictated and electronically signed, not read. Rai Maya MD [email or web address]
[2018-04-24] MEDS ORDERED: Sodium Chloride 0.9% 1,000 ML IV SCH (11:30)
--- NOTE | 2018-04-24 14:17 | CP.PCM.PN ---
Subjective - Date & Time of Evaluation Date of Evaluation: 04/24/18 Time of Evaluation: 07:00 - Subjective Subjective: Patient seen and examined at bedside states his urine is dark in color. Denies any issues overnight. Discussed with patient the severity of his liver disease and decompensated vs compensated cirrhosis. Physical Exam - Head Exam Head Exam: ATRAUMATIC, NORMAL INSPECTION, NORMOCEPHALIC - Eye Exam Eye Exam: Scleral icterus - ENT Exam ENT Exam: Mucous Membranes Moist - Neck Exam Neck Exam: Normal Inspection - Respiratory Exam Respiratory Exam: Clear to Ausculation Bilateral - Cardiovascular Exam Cardiovascular Exam: REGULAR RHYTHM, +S1, +S2 - GI/Abdominal Exam GI & Abdominal Exam: Distended, Soft (belly is softer in comparison to yes terday), tympanic - Neurological Exam Neurological Exam: Alert, Awake, Oriented x3 - Psychiatric Exam Psychiatric exam: Normal Affect, Normal Mood Objective - Vital Signs/Intake and Output Vital Signs (last 24 hours): Temp Pulse Resp BP Pulse Ox 98.3 F 83 16 132/77 93 L 04/24/18 13:10 04/24/18 13:10 04/24/18 13:10 04/24/18 13:10 04/24/18 13:10 Intake and Output: 04/24/18 04/24/18 06:59 18:59 Intake Total 360 Balance 360 - Medications Medications: Current Medications Acetylcysteine (Acetylcysteine 20%) 4 ml IH [id number] REPLACED BY [facility] Last Admin: 04/24/18 13:14 Dose: Not Given Chlordiazepoxide (Librium) 25 mg PO Q4H PRN PRN Reason: Withdrawl Clonidine HCl (Catapres) 0.1 mg PO Q4H PRN PRN Reason: Symptoms of alcohol withdrawl Diazepam (Valium) 5 mg PO Q8H PRN PRN Reason: Symptoms of alcohol withdrawl Diltiazem HCl (Cardizem Cd) 120 mg PO DAILY REPLACED BY [facility] Last Admin: 04/23/18 09:49 Dose: 120 mg Docusate Sodium (Colace) 100 mg PO TID REPLACED BY [facility] Last Admin: 04/24/18 10:31 Dose: Not Given Ergocalciferol (Drisdol 50,000 Intl Units Cap) 1 cap PO Q7D REPLACED BY [facility] Last Admin: 04/21/18 18:04 Dose: 1 cap Folic Acid (Folic Acid) 1 mg PO DAILY REPLACED BY [facility] Last Admin: 04/23/18 09:53 Dose: 1 mg Furosemide (Lasix) 40 mg IVP DAILY REPLACED BY [facility] Last Admin: 04/23/18 09:53 Dose: 40 mg Haloperidol Lactate (Haldol) 2 mg IM Q8H PRN PRN Reason: Agitation Levalbuterol HCl (Xopenex) 0.63 mg IH [id number] REPLACED BY [facility] Last Admin: 04/24/18 13:15 Dose: Not Given Levothyroxine Sodium (Synthroid) 50 mcg PO 0600 REPLACED BY [facility] Last Admin: 04/24/18 05:10 Dose: 50 mcg Lorazepam (Ativan) 1 mg IVP Q4H PRN PRN Reason: Symptoms of alcohol withdrawl Last Admin: 04/24/18 05:09 Dose: 1 mg Montelukast Sodium (Singulair) 10 mg PO HS REPLACED BY [facility] Last Admin: 04/23/18 21:49 Dose: 10 mg Multivitamins/Minerals (Therapeutic-M Tab) 1 tab PO DAILY REPLACED BY [facility] Last Admin: 04/23/18 09:50 Dose: 1 tab Nicotine (Nicoderm Cq) 1 patch TD DAILY REPLACED BY [facility] Last Admin: 04/23/18 09:52 Dose: 1 patch (Mirabegron [ Myrbetriq] 25 Mg) Home Med 25 mg PO DAILY REPLACED BY [facility] Last Admin: 04/24/18 10:31 Dose: Not Given Ondansetron HCl (Zofran Inj) 4 mg IVP Q4H PRN PRN Reason: Nausea/Vomiting Pantoprazole Sodium (Protonix Ec Tab) 40 mg PO Q12 REPLACED BY [facility] Last Admin: 04/23/18 21:49 Dose: 40 mg Spironolactone (Aldactone) 50 mg PO TID REPLACED BY [facility] Tamsulosin HCl (Flomax) 0.4 mg PO DAILY REPLACED BY [facility] Last Admin: 04/23/18 09:53 Dose: 0.4 mg Thiamine HCl (Vitamin B1 Tab) 100 mg PO DAILY REPLACED BY [facility] Last Admin: 04/23/18 09:56 Dose: 100 mg Trazodone HCl (Desyrel) 50 mg PO HS PRN PRN Reason: Insomnia - Labs Labs: 04/24/18 06:10 04/24/18 06:10 PT 15.0 SECONDS (9.4-12.5) H 04/21/18 15:40 INR 1.31 04/21/18 15:40 APTT 43.2 Seconds (25.1-36.5) H 04/21/18 15:40 Assessment and Plan - Assessment and Plan (Free Text) Assessment: 57 year old male, whose pmhx includes hypertension, hyperlipidemia, diabetes type 2, liver cirrhosis with ascites, COPD, EtOH abuse, who presented to the ED after clinic visit to PMD where he was noted to have scleral icterus and 11 lb weight gain. Patient also at the time complained of shortness of breath and acute abdominal distention. Plan: Abdominal distention due to ascities (first time onset) seconary to Alcoholic hepatitis vs SBP Maddrey's discriminant function in this patient is 23.7 and therefore does not require glucocorticoid therapy for alcoholic hepatitis Paracentesis performed; 4800 ccs removed. Labs sent and ascitic fluid is negative for SBP; therefore zosyn has been discontinued Continue with aldactone (dose increased to TID as per GI and furesomide (with Potassium supplementation) Endoscopy revealed absence of varices Alcohol abuse Alcohol cessation discussed Librium and ativan for withdrawals on board
[2018-04-24 14:27] LABS: GLUCOSE PERITONEAL FLUID 104 mg/dL; LDH PERITONEAL FLUID 54 U/L (<63); TOTAL PROTEIN PERITONEAL FLUID <3.0 g/dL
[2018-04-24] MEDS: Multivitamin With Minerals Tab PO SCH (14:35)
[2018-04-24] MEDS: diltiaZEM 120 mg/24 Hours CD Cap PO SCH (14:35)
[2018-04-24] MEDS: Pantoprazole 40 mg EC Tab PO SCH ×2 (14:36→22:25)
[2018-04-24 17:27] LABS: URINE BILIRUBIN NEGATIVE (NEGATIVE); URINE BLOOD NEGATIVE (NEGATIVE); URINE GLUCOSE (UA) NEGATIVE (NEGATIVE); URINE LEUKOCYTE ESTERASE NEGATIVE Leu/uL (NEGATIVE); URINE PROTEIN NEGATIVE mg/dL (<30 mg/dL); URINE UROBILINOGEN 0.2 E.U./dL (<1 E.U./dL)
[2018-04-24 17:31] LABS: URINE APPEARANCE CLEAR (CLEAR); URINE COLOR YELLOW (YELLOW)
[2018-04-25] MEDS: Levalbuterol 0.63 MG/3 ML Inhal Soln UD IH SCH ×3 (02:37→13:45)
[2018-04-25] MEDS: Acetylcysteine 20% Inhal Soln (4ml) IH SCH ×3 (02:37→13:45)
[2018-04-25] MEDS: Levothyroxine 50 MCG TAB PO SCH (06:00)
[2018-04-25 06:56] LABS: BASO # 0.06 K/mm3 (0.0-2.0); BASO % 0.6 % (0.0-3.0); EOS # 0.2 (0.0-0.7); EOS % 1.8 % (1.5-5.0); GRAN # 6.86 (1.4-6.5); GRAN % 73.6 % (50.0-68.0); HEMOGLOBIN 11.4 g/dL (14.0-18.0); LYMPH # 1.2 (1.2-3.4); LYMPH % 12.6 % (22.0-35.0); MEAN CELL VOLUME 103.4 fl (80.0-105.0); MEAN CORPUSCULAR HEMOGLOBIN 34.8 pg (25.0-35.0); MEAN CORPUSCULAR HGB CONC 33.6 g/dl (31.0-37.0); MEAN PLATELET VOLUME 10.2 fl (7.0-11.0); MONO # 1.1 (0.1-0.6); MONO % 11.4 % (1.0-6.0); RBC 3.28 10^6/uL (3.5-6.1); RED CELL DISTRIBUTION WIDTH 17.4 % (11.5-14.5); WHITE BLOOD COUNT 9.3 10^3/uL (4.5-11.0)
[2018-04-25 07:44] LABS: ALB/GLOB RATIO 0.8 (1.1-1.8); ALBUMIN 2.5 g/dL (3.0-4.8); ALT/SGPT 57 U/L (7-56); AST/SGOT 137 U/L (17-59); BLOOD UREA NITROGEN 12 mg/dL (7-21); CALCIUM 7.9 mg/dL (8.4-10.5); GFR NON-AFRICAN AMERICAN > 60
[2018-04-25] MEDS: Pantoprazole 40 mg EC Tab PO SCH (09:17)
[2018-04-25] MEDS: Multivitamin With Minerals Tab PO SCH (09:18)
[2018-04-25] MEDS: diltiaZEM 120 mg/24 Hours CD Cap PO SCH (10:03)
--- NOTE | 2018-04-25 10:43 | PN ---
DATE: 04/25/2018 SUBJECTIVE: The patient is lying in bed comfortable. He denies any abdominal pain, nausea, vomiting. OBJECTIVE: VITAL SIGNS: Reveal temperature of 97.7, blood pressure 102/60, heart rate is 77. HEENT: Reveal sclerae to be white. Conjunctivae pink. NECK: Supple. CHEST: Reveal lungs to be clear. HEART: Reveals a regular rate and rhythm. ABDOMEN: Soft, protuberant, nontender. No mass. EXTREMITIES: Show no edema. LABORATORY DATA: Reveal AST down to 137, ALT down to 57, alkaline phosphatase down to 290, total bilirubin down to 4.1. Serum albumin is 2.5. Chemistries reveal , CBC reveal hemoglobin 11.4, white blood cell count 9.3, platelet count of 151,000. Gram stain of ascitic fluid reveals no organisms. IMPRESSION: Decompensated cirrhosis secondary to long-term alcohol use with ascites, status post paracentesis. Ascitic fluid, chemistries and gram stain do not suggest spontaneous bacterial peritonitis. RECOMMENDATIONS: 1. We will continue Aldactone 50 mg three times a day. 2. Abstinence from alcohol. The patient may need to go into alcohol rehab. Gustavo Mcdonald MD
--- NOTE | 2018-04-25 13:20 | CP.PCM.PCO ---
Physician Communication Note - Physician Communication Note Physician Communication Note: psychiatry signed off
--- NOTE | 2018-04-25 13:22 | CP.PCM.PN ---
<Ghanshyam Falk - Last Filed: 04/25/18 13:20> Subjective - Date & Time of Evaluation Date of Evaluation: 04/25/18 Time of Evaluation: 09:50 - Subjective Subjective: Infectious disease progress note: Pt seen and examined at bedside. No acute events overnight. States that he is doing well. Denies any complaints at this time. 12 Point ROS performed and neg other than stated above. Objective - Vital Signs/Intake and Output Vital Signs (last 24 hours): Temp Pulse Resp BP Pulse Ox 97.7 F 77 20 109/70 98 04/25/18 06:00 04/25/18 06:00 04/25/18 06:00 04/25/18 09:17 04/25/18 06:00 - Medications Medications: Current Medications Acetylcysteine (Acetylcysteine 20%) 4 ml [id number] Last Admin: 04/25/18 08:10 Dose: Not Given Chlordiazepoxide (Librium) 25 mg PO Q4H PRN PRN Reason: Withdrawl Clonidine HCl (Catapres) 0.1 mg PO Q4H PRN PRN Reason: Symptoms of alcohol withdrawl Diazepam (Valium) 5 mg PO Q8H PRN PRN Reason: Symptoms of alcohol withdrawl Diltiazem HCl (Cardizem Cd) 120 mg PO DAILY [facility] Last Admin: 04/24/18 14:35 Dose: 120 mg Docusate Sodium (Colace) 100 mg PO TID [facility] Last Admin: 04/25/18 09:19 Dose: 100 mg Ergocalciferol (Drisdol 50,000 Intl Units Cap) 1 cap PO Q7D [facility] Last Admin: 04/21/18 18:04 Dose: 1 cap Folic Acid (Folic Acid) 1 mg PO DAILY [facility] Last Admin: 04/25/18 09:18 Dose: 1 mg Levalbuterol HCl (Xopenex) 0.63 mg [facility] [id number] [facility] Last Admin: 04/25/18 08:10 Dose: Not Given Levothyroxine Sodium (Synthroid) 50 mcg PO 0600 [facility] Last Admin: 04/25/18 06:00 Dose: 50 mcg Lorazepam (Ativan) 1 mg IVP Q4H PRN PRN Reason: Symptoms of alcohol withdrawl Last Admin: 04/24/18 05:09 Dose: 1 mg Montelukast Sodium (Singulair) 10 mg PO HS [facility] Last Admin: 04/24/18 22:25 Dose: 10 mg Multivitamins/Minerals (Therapeutic-M Tab) 1 tab PO DAILY [facility] Last Admin: 04/25/18 09:18 Dose: 1 tab Nicotine (Nicoderm Cq) 1 patch TD DAILY [facility] Last Admin: 04/25/18 09:19 Dose: 1 patch (Mirabegron [ Myrbetriq] 25 Mg) Home Med 25 mg PO DAILY [facility] Last Admin: 04/25/18 09:19 Dose: Not Given Ondansetron HCl (Zofran Inj) 4 mg IVP Q4H PRN PRN Reason: Nausea/Vomiting Pantoprazole Sodium (Protonix Ec Tab) 40 mg PO Q12 [facility] Last Admin: 04/25/18 09:17 Dose: 40 mg Spironolactone (Aldactone) 50 mg PO TID [facility] Last Admin: 04/25/18 09:17 Dose: 50 mg Tamsulosin HCl (Flomax) 0.4 mg PO DAILY [facility] Last Admin: 04/25/18 09:17 Dose: 0.4 mg Thiamine HCl (Vitamin B1 Tab) 100 mg PO DAILY [facility] Last Admin: 04/25/18 09:17 Dose: 100 mg Trazodone HCl (Desyrel) 50 mg PO HS PRN PRN Reason: Insomnia - Labs Labs: 04/25/18 05:30 04/25/18 05:30 PT 15.0 SECONDS (9.4-12.5) H 04/21/18 15:40 INR 1.31 04/21/18 15:40 APTT 43.2 Seconds (25.1-36.5) H 04/21/18 15:40 - Constitutional Appears: No Acute Distress - Head Exam Head Exam: ATRAUMATIC, NORMOCEPHALIC - Eye Exam Eye Exam: EOMI - ENT Exam ENT Exam: Mucous Membranes Moist - Respiratory Exam Respiratory Exam: Clear to Ausculation Bilateral (no r/r/w) - Cardiovascular Exam Cardiovascular Exam: REGULAR RHYTHM, +S1, +S2 - GI/Abdominal Exam GI & Abdominal Exam: Distended, Soft, Normal Bowel Sounds - Extremities Exam Extremities Exam: absent: Calf Tenderness, Pedal Edema - Neurological Exam Neurological Exam: Alert, Awake, Oriented x3 - Psychiatric Exam Psychiatric exam: Normal Mood - Skin Skin Exam: Dry, Warm Assessment and Plan - Assessment and Plan (Free Text) Assessment: 57 year old male, whose pmhx includes hypertension, hyperlipidemia, diabetes t ype 2, liver cirrhosis with ascites, COPD, EtOH abuse, presents with scleral icterus , increasingly sob, abdominal distention. Found to have transaminitis, elevated T bili. likely 2/2 decompensated alcoholic hepatitis. S/p paracenthesis 4.8 L removed - neg for SBP - Afebrile and leukocytosis resolved - Monitor off abx as SBP was ruled out - Septic work up neg thus far - F/u GI recs - Cont to monitor for any changes Case and plan was reviewed and discussed with Dr Peng. <Charles Peng S - Last Filed: 04/25/18 17:08> Objective - Vital Signs/Intake and Output Vital Signs (last 24 hours): Temp Pulse Resp BP Pulse Ox 98.3 F 89 19 110/77 99 04/25/18 14:00 04/25/18 14:00 04/25/18 14:00 04/25/18 14:00 04/25/18 14:00 - Medications Medications: Current Medications Acetylcysteine (Acetylcysteine 20%) 4 ml [facility] [id number] Last Admin: 04/25/18 13:45 Dose: 4 ml Chlordiazepoxide (Librium) 25 mg PO Q4H PRN PRN Reason: Withdrawl Clonidine HCl (Catapres) 0.1 mg PO Q4H PRN PRN Reason: Symptoms of alcohol withdrawl Diazepam (Valium) 5 mg PO Q8H PRN PRN Reason: Symptoms of alcohol withdrawl Diltiazem HCl (Cardizem Cd) 120 mg PO DAILY [facility] Last Admin: 04/25/18 10:03 Dose: Not Given Docusate Sodium (Colace) 100 mg PO TID [facility] Last Admin: 04/25/18 14:01 Dose: 100 mg Ergocalciferol (Drisdol 50,000 Intl Units Cap) 1 cap PO Q7D [facility] Last Admin: 04/21/18 18:04 Dose: 1 cap Folic Acid (Folic Acid) 1 mg PO DAILY [facility] Last Admin: 04/25/18 09:18 Dose: 1 mg Levalbuterol HCl (Xopenex) 0.63 mg IH [id number] [facility] Last Admin: 04/25/18 13:45 Dose: 0.63 mg Levothyroxine Sodium (Synthroid) 50 mcg PO 0600 [facility] Last Admin: 04/25/18 06:00 Dose: 50 mcg Lorazepam (Ativan) 1 mg IVP Q4H PRN PRN Reason: Symptoms of alcohol withdrawl Last Admin: 04/24/18 05:09 Dose: 1 mg Montelukast Sodium (Singulair) 10 mg PO HS [facility] Last Admin: 04/24/18 22:25 Dose: 10 mg Multivitamins/Minerals (Therapeutic-M Tab) 1 tab PO DAILY [facility] Last Admin: 04/25/18 09:18 Dose: 1 tab Nicotine (Nicoderm Cq) 1 patch TD DAILY [facility] Last Admin: 04/25/18 09:19 Dose: 1 patch (Mirabegron [ Myrbetriq] 25 Mg) Home Med 25 mg PO DAILY [facility] Last Admin: 04/25/18 09:19 Dose: Not Given Ondansetron HCl (Zofran Inj) 4 mg IVP Q4H PRN PRN Reason: Nausea/Vomiting Pantoprazole Sodium (Protonix Ec Tab) 40 mg PO Q12 [facility] Last Admin: 04/25/18 09:17 Dose: 40 mg Spironolactone (Aldactone) 50 mg PO TID [facility] Last Admin: 04/25/18 14:02 Dose: 50 mg Tamsulosin HCl (Flomax) 0.4 mg PO DAILY [facility] Last Admin: 04/25/18 09:17 Dose: 0.4 mg Thiamine HCl (Vitamin B1 Tab) 100 mg PO DAILY [facility] Last Admin: 04/25/18 09:17 Dose: 100 mg Trazodone HCl (Desyrel) 50 mg PO HS PRN PRN Reason: Insomnia - Labs Labs: 04/25/18 05:30 04/25/18 05:30 PT 15.0 SECONDS (9.4-12.5) H 04/21/18 15:40 INR 1.31 04/21/18 15:40 APTT 43.2 Seconds (25.1-36.5) H 04/21/18 15:40 Assessment and Plan - Assessment and Plan (Free Text) Assessment: Infectious diseases Attending Physician Attestation Patient seen and examined, discussed with director of graduate medical education. I have reviewed the patient's history of present illness, past medical, social, personal and family histories, pertinent physical exam findings, course so far in this hospital admission, pertinent laboratory and imaging results. I agree with the above findings, assessment and plan. In addition, continue to monitor off antibiotics. No evidence of SBP.
--- NOTE | 2018-04-25 13:28 | PN ---
DATE: 04/25/2018 SUBJECTIVE: Overnight nurse's notes were reviewed. No adverse events were documented, reported or notified to us. PHYSICAL EXAMINATION: VITAL SIGNS: Overnight vital signs in the last 12 hours T-max 97.3, pulse 88, blood pressure 113/77, respirations 20, O2 sat 92-96%. HEAD: Normocephalic, atraumatic. HEENT: Examination shows pinkish pale conjunctivae, icteric sclerae. No oropharyngeal lesion. Poor personal hygiene and overgrown alfonso noted. No neck rigidity. Positive surgical scar of the cervical spine surgery noted. CHEST: Kyphosis. LUNGS: Positive rhonchi bilaterally in the anterior upper lung blank. CARDIOVASCULAR: S1, S2, regular rhythm. ABDOMEN: Distended, protuberant. Positive prominent veins of the anterior abdominal wall noted. Positive tympanitic abdomen noted. GENITALIA: Male. RECTAL: Examination is deferred. EXTREMITIES: Positive swelling of the lower extremity. Pitting edema has resolved. MUSCULOSKELETAL: Examination is as per the body mass index. NEUROLOGIC: The patient is alert, awake, oriented x3. Cranial nerves II through XII limited. Gait examination is not tested. Vascular examination palpable pulses. No asterixis noted. LABORATORY DATA: WBC 9.3, hemoglobin/hematocrit 11.4 and 33.9, platelet 151. Granulocytes 74% segs. Sodium 138, potassium 3.7, chloride 104, CO2 of 26, BUN 12, creatinine 0.7, glucose 90, calcium 7.9, phosphorus 3.6, magnesium 2, total bili 4.1, direct bili 3, AST 137, ALT 57, alk phos 290, total protein 5.7, albumin 2.5. IMPRESSION: 1. Severe obstructive jaundice. 2. Severe abdominopelvic ascites. 3. Severe alcoholic hepatitis and alcoholic cirrhosis. 4. Status post esophagogastroduodenoscopy. 5. Hiatal hernia. 6. Erythematous gastric antrum. 7. Normocytic anemia. 8. Relative thrombocytopenia. 9. Granulocytosis. 10. Hypocalcemia. 11. Hypokalemia. 12. Hypomagnesemia. 13. Hyperbilirubinemia. 14. Severe transaminitis secondary to severe alcoholic hepatitis and alcoholic cirrhosis. 15. Obstructive jaundice with hyperbilirubinemia. 16. Mild protein malnutrition and hypoalbuminemia. 17. Bilateral lower extremity venous stasis of the lower extremity. 18. Abdominal distention secondary to massive ascites. 19. Active nicotine, alcohol and polysubstance abuse and dependence. 20. Poor personal hygiene. 21. History of cervical spine abscess, cervical spine surgery. 22. Severe degenerative joint disease of the cervical, thoracic and lumbar spines. 23. Gait dysfunction. 24. History of severe noncompliance. 1. New onset ascites. 2. Severe alcoholic hepatitis and severe alcoholic cirrhosis. 3. Severe obstructive jaundice with hyperbilirubinemia. 4. Severe transaminitis. 5. Leukocytosis with granulocytosis. 6. Normocytic anemia. 7. Granulocytosis. 8. Questionable and possible systemic inflammatory response syndrome. 9. Hypokalemia. 10. Hypomagnesemia. 11. Hyperbilirubinemia. 12. Mild hypoalbuminemia. 13. Active alcohol, nicotine and polysubstance abuse and dependence. 14. Questionable depression. 15. Status post large volume ultrasound-guided paracentesis with removal of 4.8 liters of ascitic fluid. 16. Alcoholic cirrhosis and hepatitis. 17. Hypomagnesemia. 1. Questionable and possible spontaneous bacterial peritonitis. 2. Massive ascites. 3. Questionable systemic inflammatory response syndrome with leukocytosis, fever, and granulocytosis. 4. Normocytic anemia. 5. Relative thrombocytopenia. 6. Hypokalemia. 7. Hypomagnesemia. 8. Severe transaminitis secondary to severe alcoholic hepatitis. 9. Mild coagulopathy. 10. Hypothyroidism with elevated TSH. 11. Active nicotine, alcohol and polysubstance abuse addiction and dependence. 12. Chronic obstructive pulmonary disease. 13. Gait dysfunction. 14. 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 15. History of cervical spine surgery. 16. Hyperbilirubinemia. 17. Questionable and possible obstructive jaundice. 18. Hepatic cirrhosis with hepatomegaly and massive abdominopelvic ascites. 19. Status post ultrasound-guided large volume paracentesis with removal of 4.8 liters of ascites fluid. 20. History of hypertension. 21. Poor compliance. 22. Poor personal hygiene. 1. Severe symptomatic new-onset massive ascites and abdominal distention with jaundice and obstructive jaundice. 2. Alcoholic cirrhosis. 3. Hepatomegaly and hepatic steatosis with large volume ascites. 4. Active alcohol, nicotine, and polysubstance abuse and dependence. 5. Low-grade fever. 6. Tachycardia. 7. Fever. 8. Questionable and possible spontaneous bacterial peritonitis. 9. Leukocytosis with granulocytosis. 10. Normocytic anemia. 11. Mild coagulopathy. 12. Hypomagnesemia. 13. Hyperbilirubinemia. 14. Severe transaminitis. 15. Hypothyroidism with elevated thyroid stimulating hormone. 16. Possible hyperammonemia. 17. Proteinuria, glycosuria, ketonuria, microscopic hematuria, bilirubinuria, pyuria, bacteriuria. 18. Status post ultrasound-guided paracentesis with removal of almost 5 liters of ascitic fluid. 19. Urine drug screen positive for opiate, phencyclidine, benzodiazepine, and cannabinoid. 20. Active alcohol addiction and dependence with acute alcohol intoxication. 21. Bilateral lower extremity venous stasis. 22. History of hypertension. 23. History of hepatic cirrhosis and ascites. 24. Positive jaundice. 25. Active nicotine addiction and dependence. 26. Possible decompensated alcoholic hepatitis and alcoholic cirrhosis. 27. Bilateral lower extremity venous stasis. 28. Ultrasound-guided large volume paracentesis with removal of 4.8 liters of ascitic fluid. 29. History of poor compliance and noncompliance. 30. Hepatomegaly with hepatic steatosis and fatty infiltration of the liver with hepatic cirrhosis. 31. Hypovitaminosis D. 32. Prostatic hypertrophy. 33. Prostatic hypertrophy. 34. Gait dysfunction. 35. Deconditioning. 36. Neurosis. 37. Possible impending alcohol withdrawal and delirium tremens. 38. Hypomagnesemia. 39. Hypothyroidism. 1. New-onset large abdominopelvic ascites with obstructive jaundice and hyperbilirubinemia. 2. Tachycardia. 3. Low-grade fever. 4. Leukocytosis with granulocytosis. 5. Hyperbilirubinemia. 6. Severe transaminitis. 7. Proteinuria and microscopic hematuria. 8. History of active smoking, alcoholism and drug abuse. 9. Left lower lobe atelectasis. 10. Hepatic cirrhosis with hepatic fatty infiltration. 11. Pancreatic atrophy. 12. Colonic diverticulosis. 13. Large abdominopelvic ascites PLAN: At this time, the patient is to be continued on IV antibiotics as per recommendation of the Infectious Disease. The patient is followed by Gastroenterology, Infectious Disease. The patient has been ordered Aldactone and diuretics by Gastroenterology. The patient is continued on GI, DVT prophylaxis. We are awaiting further recommendations from Gastroenterology and Infectious Disease. The patient has been ordered physical therapy, occupational therapy, ambulation therapy, gait training. The patient will be continued on the medications as per the MAR of today which was reviewed. The patient has been again recounseled about cessation of smoking, alcohol and polysubstance drug use, but the patient stated that he will not be able to give up smoking, alcohol drinking and drug use. The patient was explained about all the risk and consequences of his smoking, alcohol and recreational drug use, which he acknowledged to understand. Dictated and electronically signed, not read. Rai Maya MD DORETHA
[2018-04-25 14:42] VITALS: BP 110/77; PULSE 89; RESP 19; TEMP 98.3; O2SAT 99
[2018-04-28] MEDS ORDERED: ERGOCALCIFEROL PO SCH (10:00)
== END 2018-04-25 17:28 | DRG 432 ==
LOC: ED 15:02 → ERH 18:11 → 5RNO 20:11
PROVIDERS: ADMIT Internal Medicine; ATTEND Internal Medicine
PROC: 0W9G3ZX Drainage of Peritoneal Cavity, Percutaneous Approach, Diagnostic (ICD-10-PCS; 2018-04-22)
PROC: 0DB68ZX Excision of Stomach, Via Natural or Artificial Opening Endoscopic, Diagnostic (ICD-10-PCS; principal; 2018-04-24 11:30)
DX: K70.31 Alcoholic cirrhosis of liver with ascites (principal); K83.1 Obstruction of bile duct; F10.239 Alcohol dependence with withdrawal, unspecified; E44.1 Mild protein-calorie malnutrition; J98.11 Atelectasis; R65.10 Systemic inflammatory response syndrome (SIRS) of non-infectious origin without acute organ dysfunction; D68.9 Coagulation defect, unspecified; K70.11 Alcoholic hepatitis with ascites; F10.229 Alcohol dependence with intoxication, unspecified; I10 Essential (primary) hypertension; N40.0 Benign prostatic hyperplasia without lower urinary tract symptoms; M47.812 Spondylosis without myelopathy or radiculopathy, cervical region; K76.0 Fatty (change of) liver, not elsewhere classified; R31.29 Other microscopic hematuria; D64.9 Anemia, unspecified; D69.6 Thrombocytopenia, unspecified; E11.9 Type 2 diabetes mellitus without complications; E55.9 Vitamin D deficiency, unspecified; E03.9 Hypothyroidism, unspecified; E78.5 Hyperlipidemia, unspecified; E83.42 Hypomagnesemia; E83.51 Hypocalcemia; E87.6 Hypokalemia; F12.90 Cannabis use, unspecified, uncomplicated; F17.210 Nicotine dependence, cigarettes, uncomplicated; J44.9 Chronic obstructive pulmonary disease, unspecified; K44.9 Diaphragmatic hernia without obstruction or gangrene; E53.8 Deficiency of other specified B group vitamins; I87.8 Other specified disorders of veins; R26.9 Unspecified abnormalities of gait and mobility; M47.894 Other spondylosis, thoracic region; M47.896 Other spondylosis, lumbar region; K86.89 Other specified diseases of pancreas; K57.30 Diverticulosis of large intestine without perforation or abscess without bleeding; Y90.6 Blood alcohol level of 120-199 mg/100 ml; Z91.19 Patient's noncompliance with other medical treatment and regimen; Z86.14 Personal history of Methicillin resistant Staphylococcus aureus infection

== ENCOUNTER 2018-06-16 22:48 | Inpatient (IN) | payer BC ==
--- NOTE | 2018-06-16 23:14 | ED PDOC ---
Arrival/HPI - General Chief Complaint: GI Problem Time Seen by Provider: 06/16/18 22:49 Historian: Patient - History of Present Illness Narrative History of Present Illness (Text): 06/16/18 23:12 Addi Simpson is a 57 year old male, whose past medical history includes liver cirrhosis, severe alcohol abuse, perirectal abscess, hypertension, emphysema, diabetes, and spinal stenosis, who presents to the Emergency department comp laining of dark stools. Patient states he has been having dark, tarry stools with abdominal fullness ,vague discomfort.Also occassional chest discomfort. Patient reports he still drinks alcohol. Patient also notes he has been taking Pepto Bismol. Patient denies any fever, chills, shortness of breath, nausea, vomiting,headache, dizziness, or any other complaints. PMD: Dr. Maya Symptom Onset: Gradual Symptom Course: Unchanged Activities at Onset: Light Context: Home Past Medical History - Provider Review Nursing Documentation Reviewed: Yes - Infectious Disease Hx of Infectious Diseases: None - Tetanus Immunization Tetanus Immunization: Unknown - Cardiac Hx Hypertension: Yes - Pulmonary Hx Chronic Obstructive Pulmonary Disease (COPD): Yes - Neurological HX Cerebrovascular Accident: No - HEENT Hx HEENT Disorder: Yes (glasses) - Renal Hx Renal Failure: No - Endocrine/Metabolic Hx Diabetes Mellitus Type 2: Yes - Hematological/Oncological Hx Blood Transfusions: No Hx Blood Transfusion Reaction: No - Integumentary Hx Dermatological Disorder: No - Musculoskeletal/Rheumatological Hx Arthritis: Yes - Gastrointestinal Hx Gastrointestinal Disorders: (reflux/ hx ulcers) Other/Comment: ascitis - Genitourinary/Gynecological Hx Genitourinary Disorders: No - Psychiatric Hx Emotional Abuse: No Hx Physical Abuse: No Hx Substance Use: Yes (marijuna occasionally) - Surgical History Hx Musculoskeletal Surgery: Yes (RIGHT ANKLE W/ SCREW AND METAL PLATE 2 YRS AGO 2009?) Hx Orthopedic Surgery: No (Right knee sx and right ankle sx with pins and metal plate.) Other/Comment: HEMORRHOIDECTOMY 2012, pt denies r knee sx, hemorrhoidectomy 2012, cervical disk sx 03/2015 - Anesthesia Hx Anesthesia Reactions: No Hx Malignant Hyperthermia: No - Suicidal Assessment Feels Threatened In Home Enviroment: No Family/Social History - Physician Review Nursing Documentation Reviewed: Yes Family/Social History: Unknown Family HX Smoking Status: Current Some Days Smoker Hx Alcohol Use: Yes (daily) Amount per day: 4 Hx Substance Use: Yes (marijuna occasionally) Substance used: marijuana Hx Substance Use Treatment: No Allergies/Home Meds Allergies/Adverse Reactions: Allergies No Known Allergies Allergy (Verified 04/15/18 21:19) Home Medications: Home Meds Medication Instructions Recorded Confirmed Ergocalciferol (Vitamin D2) 50,000 iu PO QWK 09/04/13 04/21/18 [Vitamin D2] Magnesium Oxide [Magox 400] 400 mg PO DAILY 09/04/13 04/21/18 Folic Acid 1 mg PO DAILY 06/10/15 04/21/18 Benzonatate [Tessalon Perles] 200 mg PO TID 04/21/18 04/21/18 Cyproheptadine [Periactin] 1 tab PO BID 04/21/18 04/21/18 Ergocalciferol [Drisdol 50,000 1 cap PO Q7D 04/21/18 04/21/18 Intl Units Cap] Glycopyrrolate/Formoterol Fum 2 puff IH BID 04/21/18 04/21/18 [Bevespi Aerosphere Inhaler] Levalbuterol [Xopenex] 1 vial IH TID 04/21/18 04/21/18 Mirabegron [Myrbetriq] 1 tab PO DAILY 04/21/18 04/21/18 Montelukast [Singulair] 1 tab PO HS 04/21/18 04/21/18 Pantoprazole [Protonix EC Tab] 1 tab PO DAILY 04/21/18 04/21/18 Pregabalin [Lyrica] 1 cap PO HS 04/21/18 04/21/18 Tamsulosin [Flomax] 1 cap PO DAILY 04/21/18 04/21/18 Thiamine [Vitamin B1 Tab] 1 tab PO DAILY 04/21/18 04/21/18 Review of Systems - Physician Review All systems were reviewed & negative as marked: Yes - Review of Systems Constitutional: Normal. absent: Fevers Eyes: Normal ENT: Normal Respiratory: Normal. absent: SOB, Cough Cardiovascular: Chest Pain Gastrointestinal: Abdominal Pain, Stool Changes (+black stools). absent: Diarrhea, Vomiting Genitourinary Male: Normal. absent: Dysuria, Frequency, Hematuria, Urinary Output Changes Musculoskeletal: Normal. absent: Back Pain, Neck Pain Skin: Normal. absent: Rash Neurological: Normal. absent: Headache, Dizziness Endocrine: Normal Hemo/Lymphatic: Normal Psychiatric: Normal Physical Exam Vital Signs Reviewed: Yes Vital Signs Temp Pulse Resp BP Pulse Ox 06/16/18 22:58 98.0 F 126 H 18 139/95 H 97 Temperature: Afebrile Blood Pressure: Normal Pulse: Tachycardic Respiratory Rate: Normal Appearance: Positive for: Well-Appearing, Non-Toxic, Comfortable Pain Distress: None Mental Status: Positive for: Alert and Oriented X 3 - Systems Exam Head: Present: Atraumatic, Normocephalic Pupils: Present: PERRL Extroacular Muscles: Present: EOMI Conjunctiva: Present: Normal Mouth: Present: Moist Mucous Membranes Neck: Present: Normal Range of Motion Respiratory/Chest: Present: Clear to Auscultation, Good Air Exchange. No: Respiratory Distress, Accessory Muscle Use Cardiovascular: Present: Regular Rate and Rhythm, Normal S1, S2. No: Murmurs Abdomen: Present: Distention. No: Tenderness, Peritoneal Signs Rectal: Present: Normal Rectal Tone, Other (Guaiac negative). No: Gross Blood, Hemorrhoids, Fissures Back: Present: Normal Inspection Upper Extremity: Present: Normal Inspection. No: Cyanosis, Edema Lower Extremity: Present: Normal Inspection. No: Edema Neurological: Present: GCS=15, CN II-XII Intact, Speech Normal Skin: Present: Warm, Dry, Normal Color. No: Rashes Psychiatric: Present: Alert, Oriented x 3, Normal Insight, Normal Concentration Medical Decision Making ED Course and Treatment: 06/16/18 23:12 Impression: 57 year old male complaining of dark, tarry stools, and abdominal fullness/discomfort,occassional chest discomfort.. Plan: -- CT Abdomen and Pelvis w/o contrast -- EKG -- Chest X-ray -- Labs, cardiac enzymes, lipase, alcohol level -- Urinalysis -- Reassess and disposition Prior Visits: Notes and results from previous visits were reviewed. Progress Notes: Reviewed EKG, sinus tachycardia at 122 bpm. Anterior infarct. Non-specific ST/T wave changes. 06/17/18 02:15 CT Abdomen and Pelvis: Large ascites, increased. Thickening of the cecum and ascending colon, increased. Mesenteric congestion and nodularity, increased. The visualized lung bases are unremarkable. Cirrhotic unenhanced liver. Normal gallbladder and extrahepatic biliary system. Normal unenhanced spleen. Normal pancreas. Normal bilateral adrenal glands. Normal size of the right kidney. There is no right renal mass. There are no right renal calculi. There is no right hydronephrosis. Normal visualized right ureter. Normal size of the left kidney. There is no left renal mass. There are no left renal calculi. There is no left hydronephrosis. Normal visualized left ureter. Normal visualized stomach. Normal small intestine. Normal colon. The appendix is visualized and appears normal. There is large amount of free peritoneal fluid. Normal abdominal aorta. Normal inferior vena cava. Normal retroperitoneum. Normal urinary bladder. There is no pelvic mass lesion or lymphadenopathy. Normal abdominal wall. Normal osseous structures IMPRESSION: Liver cirrhosis, unchanged. Large ascites, increased. Mild multifocal thickening of the colon more prominent in the cecum and ascending colon. Underdistention, spasm versus mild colitis. Electronically signed on Jun 17, 2018 1:55:56 AM EDT by: Олег Robbins M.D., Certified by ABR, MSK, Neuroradiology 06/17/18 02:17 Chest X-ray reviewed, show no acute processes. 06/17/18 02:[address] Maya, who is aware and agrees with plan. Accepts pt in to his service. Pt will go to Telemetry for further care.president [employer] notified. - Lab Interpretations I have reviewed the lab results: Yes - RAD Interpretation Candy Attendant: ED Physician, Radiologist - EKG Interpretation Interpreted by ED Physician: Yes Type: 12 lead EKG - Scribe Statement The provider has reviewed the documentation as recorded by the Negar Hernandez Provider Scribe Attestation: All medical record entries made by the Scribe were at my direction and personally dictated by me. I have reviewed the chart and agree that the record accurately reflects my personal performance of the history, physical exam, medical decision making, and the department course for this patient. I have also personally directed, reviewed, and agree with the discharge instructions and disposition. Disposition/Present on Arrival - Present on Arrival Any Indicators Present on Arrival: No History of DVT/PE: No History of Uncontrolled Diabetes: No Urinary Catheter: No History of Decub. Ulcer: No History Surgical Site Infection Following: None - Disposition Have Diagnosis and Disposition been Completed?: Yes Diagnosis: Alcohol withdrawal syndrome, Colitis, Ascites, Chest pain Disposition: HOSPITALIZED Disposition Time: 02:42 Patient Problems: Current Active Problems Problem Status Onset Alcohol withdrawal syndrome Acute Ascites Acute Chest pain Acute Colitis Acute Condition: STABLE
[2018-06-16 23:33] LABS: HEMOGLOBIN 13.3 g/dL (14.0-18.0); MEAN CORPUSCULAR HEMOGLOBIN 31.7 pg (25.0-35.0); MEAN CORPUSCULAR HGB CONC 33.3 g/dl (31.0-37.0); MEAN PLATELET VOLUME 10.1 fl (7.0-11.0); RBC 4.19 10^6/uL (3.5-6.1); RED CELL DISTRIBUTION WIDTH 14.8 % (11.5-14.5); WHITE BLOOD COUNT 7.6 10^3/uL (4.5-11.0)
[2018-06-16 23:42] LABS: MEAN CELL VOLUME 95.2 fl (80.0-105.0)
[2018-06-16 23:47] LABS: ALB/GLOB RATIO 0.8 (1.1-1.8); ALBUMIN 3.7 g/dL (3.0-4.8); BLOOD UREA NITROGEN 10 mg/dL (7-21); GFR NON-AFRICAN AMERICAN > 60; LIPASE 104 U/L (23-300)
[2018-06-16 23:58] LABS: TROPONIN I < 0.01 ng/mL
[2018-06-17 00:12] LABS: ALT/SGPT 26 U/L (7-56); AST/SGOT 178 U/L (17-59); CK-MB 2.5 ng/mL (0.0-3.6)
[2018-06-17] MEDS ORDERED: Potassium Chloride 20 mEq ER Tab PO STA ×2 (00:14→04:42)
[2018-06-17] MEDS ORDERED: cefTRIAXone 1 gm 1 GM/100 ML BAG IV STA (02:33)
[2018-06-17] MEDS ORDERED: metroNIDAZOLE IV 500 mg/100 ml 500 MG/100 ML BAG IV STA (02:33)
[2018-06-17 03:01] LABS: PH,URINE 6.5 (4.7-8.0); URINE BILIRUBIN LARGE (NEGATIVE); URINE BLOOD SMALL (NEGATIVE); URINE GLUCOSE (UA) NEGATIVE (NEGATIVE); URINE LEUKOCYTE ESTERASE NEGATIVE Leu/uL (NEGATIVE); URINE PROTEIN 100 mg/dL (<30 mg/dL); URINE UROBILINOGEN >=8.0 E.U./dL (<1 E.U./dL)
[2018-06-17 03:03] LABS: URINE APPEARANCE SL CLOUDY (CLEAR); URINE COLOR DARK YELLOW (YELLOW)
--- NOTE | 2018-06-17 03:20 | CP.PCM.HP ---
History of Present Illness - History of Present Illness History of Present Illness: Resident History & Physical for Dr. Maya Patient is a 57 year old male with past medical history of alcoholic hepatitis and cirrhosis, hiatal hernia, diverticulosis, hypertension, COPD, hypothyroidism, T2DM, polysubstance abuse presenting with chief complaint of dark stools and abdominal discomfort. Patient states that today he has had three episodes of dark loose stools. Patient has history of ascites and is s/p multiple paracentesis, the most recent being April 2018. Patient also admits to shortness of breath associated with abdominal distension. Denies fevers, chills, headache, dizziness, nausea, vomiting, chest pain, dysuria. PMH: alcoholic hepatitis and cirrhosis, hiatal hernia, diverticulosis, hypertension, COPD, hypothyroidism, T2DM, polysubstance abuse PSH: cervical spine surgery, paracentesis SHx: 1-2 pints alcohol per day, 1 PPD for 30 years, marijuana use Allergies: NKDA PMD: Dr. Maya Present on Admission - Present on Admission Any Indicators Present on Admission: No Review of Systems - Review of Systems All systems: reviewed and no additional remarkable complaints except (as stated in HPI) Past Patient History - Infectious Disease Hx of Infectious Diseases: None - Tetanus Immunizations Tetanus Immunization: Unknown - Past Medical History & Family History Past Medical History?: Yes - Past Social History Smoking Status: Heavy Smoker > 10 Cigarettes Daily Drugs: Cannabis - CARDIAC Hx Hypertension: Yes - PULMONARY Hx Chronic Obstructive Pulmonary Disease (COPD): Yes - NEUROLOGICAL HX Cerebrovascular Accident: No - HEENT Hx HEENT Problems: Yes (glasses) - RENAL Hx Renal Failure: No - ENDOCRINE/METABOLIC Hx Diabetes Mellitus Type 2: Yes - HEMATOLOGICAL/ONCOLOGICAL Hx Blood Transfusions: No Hx Blood Transfusion Reaction: No - INTEGUMENTARY Hx Dermatological Problems: No - MUSCULOSKELETAL/RHEUMATOLOGICAL Hx Arthritis: Yes - GASTROINTESTINAL Hx Gastrointestinal Disorders: (reflux/ hx ulcers) Other/Comment: ascitis - GENITOURINARY/GYNECOLOGICAL Hx Genitourinary Disorders: No - PSYCHIATRIC Hx Emotional Abuse: No Hx Physical Abuse: No Hx Substance Use: Yes (marijuna occasionally) - SURGICAL HISTORY Hx Musculoskeletal Surgery: Yes (RIGHT ANKLE W/ SCREW AND METAL PLATE 2 YRS AGO 2009?) Hx Orthopedic Surgery: No (Right knee sx and right ankle sx with pins and metal plate.) Other/Comment: HEMORRHOIDECTOMY 2012, pt denies r knee sx, hemorrhoidectomy 2012, cervical disk sx 03/2015 - ANESTHESIA Hx Anesthesia Reactions: No Hx Malignant Hyperthermia: No Meds Allergies/Adverse Reactions: Allergies Allergy/AdvReac Type Severity Reaction Status Date / Time No Known Allergies Allergy Verified 04/15/18 21:19 Physical Exam - Constitutional Appears: Non-toxic, No Acute Distress - Head Exam Head Exam: ATRAUMATIC, NORMOCEPHALIC - Eye Exam Eye Exam: EOMI, PERRL, Scleral icterus - ENT Exam ENT Exam: Mucous Membranes Moist - Neck Exam Neck exam: Positive for: Full Rom - Respiratory Exam Respiratory Exam: Wheezes. absent: Accessory Muscle Use, Rales, Rhonchi, Respiratory Distress - Cardiovascular Exam Cardiovascular Exam: REGULAR RHYTHM, +S1, +S2 - GI/Abdominal Exam GI & Abdominal Exam: Distended. absent: Guarding, Rebound, Rigid, Tenderness - Rectal Exam Rectal Exam: NORMAL INSPECTION. absent: Bloody Stool Additional comments: normal rectal tone dark green stool - Extremities Exam Extremities exam: Positive for: normal capillary refill, pedal pulses present. Negative for: tenderness - Back Exam Back exam: NORMAL INSPECTION - Neurological Exam Neurological exam: Alert, CN II-XII Intact, Oriented x3 - Psychiatric Exam Psychiatric exam: Normal Affect, Normal Mood - Skin Skin Exam: Dry, Intact, Warm Results - Vital Signs Recent Vital Signs: Last Vital Signs Temp 98.0 F 06/16/18 22:58 Pulse 115 H 06/17/18 02:55 Resp 19 06/17/18 01:12 BP 140/89 06/17/18 01:12 Pulse Ox 97 06/17/18 01:12 - Labs Result Diagrams: 06/17/18 05:09 06/16/18 23:15 Labs: Laboratory Results - last 24 hr 06/16/18 06/16/18 06/16/18 23:15 23:15 23:15 WBC 7.6 RBC 4.19 Hgb 13.3 L Hct 39.9 L MCV 95.2 D MCH 31.7 MCHC 33.3 RDW 14.8 H Plt Count 139 MPV 10.1 Sodium 135 Potassium 3.3 L Chloride 96 L Carbon Dioxide 20 L Anion Gap 23 H BUN 10 Creatinine 0.7 L Est GFR ( Amer) > 60 Est GFR (Non-Af Amer) > 60 Random Glucose 94 Calcium 9.0 Total Bilirubin 4.8 H AST 178 H D ALT 26 Alkaline Phosphatase 267 H Lactate Dehydrogenase 595 Total Creatine Kinase 379 H CK-MB (CK-2) 2.5 CK-MB (CK-2) % Cancelled Troponin I < 0.01 Total Protein 8.3 Albumin 3.7 Globulin 4.6 Albumin/Globulin Ratio 0.8 L Lipase 104 Urine Color Urine Appearance Urine pH Ur Specific [place] Urine Protein Urine Glucose (UA) Urine Ketones Urine Blood Urine Nitrate Urine Bilirubin Urine Urobilinogen Ur Leukocyte Esterase Alcohol, Quantitative < 10 06/17/18 02:50 WBC RBC Hgb Hct MCV MCH MCHC RDW Plt Count MPV Sodium Potassium Chloride Carbon Dioxide Anion Gap BUN Creatinine Est GFR ( Amer) Est GFR (Non-Af Amer) Random Glucose Calcium Total Bilirubin AST ALT Alkaline Phosphatase Lactate Dehydrogenase Total Creatine Kinase CK-MB (CK-2) CK-MB (CK-2) % Troponin I Total Protein Albumin Globulin Albumin/Globulin Ratio Lipase Urine Color Dark yellow Urine Appearance Sl cloudy Urine pH 6.5 Ur Specific [place] >= 1.030 Urine Protein 100 H Urine Glucose (UA) Negative Urine Ketones >=80 Urine Blood Small H Urine Nitrate Positive H Urine Bilirubin Large H Urine Urobilinogen >=8.0 Ur Leukocyte Esterase Negative Alcohol, Quantitative Assessment & Plan - Assessment and Plan (Free Text) Assessment: Patient is a 57 year old male with past medical history of alcoholic hepatitis and cirrhosis, hiatal hernia, diverticulosis, hypertension, COPD, hypothyroidism, T2DM, polysubstance abuse presenting with chief complaint of dark stools and abdominal discomfort. Plan: Dark stools/abdominal pain - afebrile, no leukocytosis - CT abd/pelvis shows liver cirrhosis, large ascities, colon spasm vs. mild colitis - EGD from 04/2018 showed small hiatal hernia, erythematous mucosa in antrum - continue cipro and flagyl - GI consulted. Appreciate recs. Ascites - IR consulted Alcohol withdrawal - CIWA protocol - aspiriation, seizure precautions - multivitamin/thimaine/folic acid daily Hypokalemia - Potassium 20 meq Q12H - continue to monitor Polysubstance abuse - Nicotine patch - cessation counseling PPX - Protonix Case reviewed with Dr. Francesco King PGY-1
[2018-06-17 03:47] LABS: URINE AMORPHOUS SEDIMENT FEW /hpf; URINE BACTERIA FEW /hpf; URINE RBC 0 - 2 /hpf (0-2); URINE WBC 0 - 2 /hpf (0-6)
[2018-06-17 05:01] VITALS: BMI 32.3
[2018-06-17 05:24] LABS: BASO # 0.06 K/mm3 (0.0-2.0); EOS # 0.1 (0.0-0.7); EOS % 1.9 % (1.5-5.0); HEMOGLOBIN 12.1 g/dL (14.0-18.0); LYMPH # 1.6 (1.2-3.4); LYMPH % 25.9 % (22.0-35.0); MEAN CELL VOLUME 95.3 fl (80.0-105.0); MEAN CORPUSCULAR HEMOGLOBIN 31.8 pg (25.0-35.0); MEAN CORPUSCULAR HGB CONC 33.3 g/dl (31.0-37.0); MONO # 0.7 (0.1-0.6); MONO % 11.9 % (1.0-6.0); RBC 3.81 10^6/uL (3.5-6.1); RED CELL DISTRIBUTION WIDTH 14.9 % (11.5-14.5); WHITE BLOOD COUNT 6.2 10^3/uL (4.5-11.0)
[2018-06-17 07:21] LABS: INR 1.61; PARTIAL THROMBOPLASTIN TIME 37.4 Seconds (26.9-38.3); PROTHROMBIN TIME 18.2 SECONDS (9.4-12.5)
[2018-06-17] MEDS ORDERED: Ergocalciferol 50,000 Intl Units Cap PO SCH (08:15)
[2018-06-17 08:31] LABS: ALB/GLOB RATIO 0.7 (1.1-1.8); BILIRUBIN,DIRECT 2.4 mg/dL (0.0-0.4)
[2018-06-17] MEDS: Levalbuterol 0.63 MG/3 ML Inhal Soln UD IH SCH ×3 (08:45→20:06)
[2018-06-17] MEDS: Folic Acid 1 MG, Thiamine 100 MG, Multivitamin (MVI) 10 ML in Dextrose 5% In Water 1,00... IV SCH ×2 (09:01→21:15)
[2018-06-17] MEDS: Potassium Chloride 20 mEq ER Tab PO SCH ×2 (09:05→21:09)
[2018-06-17] MEDS: Pantoprazole 40 mg EC Tab PO SCH (09:06)
[2018-06-17] MEDS: diltiaZEM 120 mg/24 Hours CD Cap PO SCH (09:06)
[2018-06-17] MEDS: Multivitamin With Minerals Tab PO SCH (09:07)
--- NOTE | 2018-06-17 09:43 | CT ---
Date of service: 06/17/2018 PROCEDURE: CT Abdomen and Pelvis without intravenous contrast HISTORY: pain COMPARISON: 04/16/2018 TECHNIQUE: Technique. Contrast dose: Radiation dose: Total exam DLP = 0.0 mGy-cm. This CT exam was performed using one or more of the following dose reduction techniques: Automated exposure control, adjustment of the mA and/or kV according to patient size, and/or use of iterative reconstruction technique. FINDINGS: LOWER THORAX: Unremarkable. LIVER: Cirrhotic liver. No gross lesion or ductal dilatation. GALLBLADDER AND BILE DUCTS: Unremarkable. PANCREAS: Unremarkable. No gross lesion or ductal dilatation. SPLEEN: Unremarkable. ADRENALS: Unremarkable. No mass. KIDNEYS AND URETERS: Unremarkable. No hydronephrosis. No solid mass. VASCULATURE: Unremarkable. No aortic aneurysm. No aortic atherosclerotic calcification or mural plaque present. BOWEL: Unremarkable. No obstruction. No gross mural thickening. APPENDIX: Unremarkable. Normal appendix. PERITONEUM: Extensive ascites. LYMPH NODES: Unremarkable. No enlarged lymph nodes. BLADDER: Unremarkable. REPRODUCTIVE: Unremarkable. BONES: No acute fracture. OTHER FINDINGS: Umbilical hernia and small fat containing left inguinal hernia. IMPRESSION: Cirrhotic liver.Extensive ascites.
--- NOTE | 2018-06-17 09:43 | CARD ---
APPROVED REPORT Date of service: 06/16/2018 EKG Measurement Heart [id number] <Conclusion> Sinus tachycardia Low voltage QRS Cannot rule out Inferior infarct, age undetermined Cannot rule out Anterior infarct, age undetermined Abnormal ECG
--- NOTE | 2018-06-17 09:47 | RAD ---
Date of service: 06/16/2018 HISTORY: Chest pain COMPARISON: Comparison chest dated 01/26/2018. FINDINGS: LUNGS: Poor inspiration with low lung volumes common crowded bronchovascular markings and minor bibasilar atelectasis. PLEURA: No significant pleural effusion identified, no pneumothorax apparent. CARDIOVASCULAR: No aortic atherosclerotic calcification present. Normal cardiac size. No pulmonary vascular congestion. OSSEOUS STRUCTURES: No significant abnormalities. VISUALIZED UPPER ABDOMEN: Normal. OTHER FINDINGS: None. IMPRESSION: Poor inspiration with low lung volumes common crowded bronchovascular markings and minor bibasilar atelectasis.
[2018-06-17] MEDS ORDERED: ERGOCALCIFEROL PO SCH (10:00)
[2018-06-17] MEDS: Acetylcysteine 20% Inhal Soln (4ml) IH SCH ×2 (13:37→20:06)
[2018-06-17] MEDS ORDERED: Acetylcysteine 20% Inhal Soln (4ml) IH SCH (14:00)
--- NOTE | 2018-06-17 15:58 | CON ---
DATE OF CONSULTATION: 06/17/2018 GASTROENTEROLOGY CONSULTATION REQUESTING PHYSICIAN: Dr. Maya. REASON FOR CONSULTATION: I have been asked to see this 57-year-old alcoholic male with a history of cirrhosis of the liver, polysubstance abuse, who comes to the hospital with several dark bowel movements. He denies any rectal bleeding, hematemesis, nausea, or vomiting. The patient last drank a [id number] of vodka 2 days prior to admission. He had an upper endoscopy approximately 7 weeks ago, which revealed antral gastritis, hiatal hernia, and no varices. The patient has had recurrent ascites secondary to cirrhosis. He denies any abdominal pain, nausea, or vomiting. PAST MEDICAL HISTORY: As above. Again, he has a history of alcohol-induced cirrhosis of liver, gastritis, hiatal hernia, diverticulosis, COPD, hypertension, type 2 diabetes mellitus, hypothyroidism, polysubstance abuse. PAST SURGICAL HISTORY: Notable for cervical spine surgery. SOCIAL HISTORY: He consumes one to two pints of vodka daily. He has smoked up to a pack of cigarettes for 30 days. He also smokes marijuana recreationally. FAMILY HISTORY: Noncontributory. REVIEW OF SYSTEMS: Fourteen-point review of systems is notable for dark stools. No abdominal pain, nausea, or vomiting, also increasing abdominal distention. MEDICATIONS: Medications at home include diltiazem, thiamine, Flomax, Aldactone, Lyrica, pantoprazole, nicotine, Singulair, Myrbetriq, mag oxide, Synthroid, Xopenex, glycopyrrolate, formoterol inhaler, vitamin D, Periactin, Tessalon Perles. PHYSICAL EXAMINATION: GENERAL: Chronically ill-appearing male, lying in bed, in no acute distress. VITAL SIGNS: Reveal a temperature of 98.7, blood pressure 119/74, heart rate 93. HEENT: Revealed sclerae to be white. Conjunctivae pale. NECK: Supple. CHEST: Reveals distant breath sounds. HEART: Exam reveals a regular rate and rhythm. ABDOMEN: Distended with ascites. EXTREMITIES: Show trace pedal edema. LABORATORY DATA: Reveal white blood cell count of 6.2, hemoglobin of 12.1, this is stable since his last admission in 04/2018. Chemistries reveal BUN 10, creatinine 0.7, bicarb of 20, potassium 3.3, total bilirubin of 4.8, AST 178, ALT 26 on 06/16/2018. On 06/17/2018, total bilirubin is 3.8, AST 149, ALT 26, alkaline phosphatase of 199. Serum ammonia level was normal. IMPRESSION: A 57-year-old male, alcoholic, continues to consume one to wmn-xkt-i-half pints of vodka daily with recurrent ascites secondary to cirrhosis and alcoholism. The patient admits to dark stools. However, his BUN is normal as well as his hemoglobin being at baseline, I doubt that this is a gastrointestinal bleed. He did have an endoscopy 7 weeks ago, which revealed antral gastritis without varices. RECOMMENDATIONS: 1. I agree with IR evaluation for large-volume paracentesis. 2. Abstinence from alcohol. 3. Continue PPI. Gustavo Mcdonald MD
[2018-06-17] MEDS: Piperacillin/Tazobact 3.375 gm 100 ML IVPB SCH ×2 (15:59→21:08)
--- NOTE | 2018-06-17 17:12 | CP.PCM.CON ---
<Elver Delgadillo - Last Filed: 06/17/18 17:08> History of Present Illness - History of Present Illness History of Present Illness: Elver Delgadillo D.O. PGY-3, Internal Medicine Resident, Infectious Disease Consultation Note 57 year old male with a PMH of alcoholic hepatitis and cirrhosis, hiatal hernia, diverticulosis, hypertension, COPD, hypothyroidism, DM, polysubstance abuse who presented with complaints of dark stools and abdominal discomfort. Infectious disease consultation was requested for questionable SBP. Patient was seen and examined at bedside. Patient is recently s/p large volume paracentesis by Dr. Nguyễn YOUNG. Patient states that at this time he is feeling somewhat more comfortable as his abdomen is smaller. No other acute complaints at this time. Per patient 6.7L were removed. Review of Systems - Review of Systems All systems: reviewed and no additional remarkable complaints except (as per HPI) Past Patient History - Infectious Disease Hx of Infectious Diseases: None - Tetanus Immunizations Tetanus Immunization: Unknown - Past Medical History & Family History Past Medical History?: Yes - Past Social History Smoking Status: Heavy Smoker > 10 Cigarettes Daily Drugs: Cannabis - CARDIAC Hx Hypertension: Yes - PULMONARY Hx Chronic Obstructive Pulmonary Disease (COPD): Yes - NEUROLOGICAL HX Cerebrovascular Accident: No - HEENT Hx HEENT Problems: Yes (glasses) - RENAL Hx Renal Failure: No - ENDOCRINE/METABOLIC Hx Diabetes Mellitus Type 2: Yes - HEMATOLOGICAL/ONCOLOGICAL Hx Blood Transfusions: No Hx Blood Transfusion Reaction: No - INTEGUMENTARY Hx Dermatological Problems: No - MUSCULOSKELETAL/RHEUMATOLOGICAL Hx Arthritis: Yes - GASTROINTESTINAL Hx Gastrointestinal Disorders: (reflux/ hx ulcers) Other/Comment: ascitis - GENITOURINARY/GYNECOLOGICAL Hx Genitourinary Disorders: No - PSYCHIATRIC Hx Emotional Abuse: No Hx Physical Abuse: No Hx Substance Use: Yes (marijuna occasionally) - SURGICAL HISTORY Hx Musculoskeletal Surgery: Yes (RIGHT ANKLE W/ SCREW AND METAL PLATE 2 YRS AGO 2009?) Hx Orthopedic Surgery: No (Right knee sx and right ankle sx with pins and metal plate.) Other/Comment: HEMORRHOIDECTOMY 2012, pt denies r knee sx, hemorrhoidectomy 2012, cervical disk sx 03/2015 - ANESTHESIA Hx Anesthesia Reactions: No Hx Malignant Hyperthermia: No Meds Allergies/Adverse Reactions: Allergies Allergy/AdvReac Type Severity Reaction Status Date / Time No Known Allergies Allergy Verified 01/07/19 21:19 - Medications Medications: Current Medications Acetylcysteine (Acetylcysteine 20%) 4 ml IH [id number] [facility] Last Admin: 06/17/18 13:37 Dose: Not Given Chlordiazepoxide (Librium) 50 mg PO Q4H PRN PRN Reason: Symptoms of alcohol withdrawl Last Admin: 06/17/18 14:11 Dose: 50 mg Clonidine HCl (Catapres) 0.1 mg PO Q4H PRN PRN Reason: Symptoms of alcohol withdrawl Diltiazem HCl (Cardizem Cd) 120 mg PO DAILY [facility] Last Admin: 06/17/18 09:06 Dose: 120 mg Ergocalciferol (Drisdol 50,000 Intl Units Cap) 1 cap PO Q7D [facility] Last Admin: 06/17/18 09:07 Dose: 1 cap Folic Acid (Folic Acid) 1 mg PO DAILY [facility] Last Admin: 06/17/18 09:06 Dose: 1 mg Furosemide (Lasix) 40 mg IVP DAILY [facility] Last Admin: 06/17/18 09:02 Dose: 40 mg Folic Acid 1 mg/ Thiamine HCl 100 mg/ Multivitamins/Vitamin C 10 ml/ Dextrose 1,011.2 mls @ 100 mls/hr IV .Q10H7M [facility] Last Admin: 06/17/18 09:01 Dose: 100 mls/hr Piperacillin Sod/Tazobactam Sod (Zosyn 3.375 In Ns 100ml) 100 mls @ 25 mls/hr IVPB Q8 [facility]; Protocol Stop: 06/21/18 01:59 Last Admin: 06/17/18 15:59 Dose: 25 mls/hr Levalbuterol HCl (Xopenex) 0.63 mg IH [id number] [facility] Last Admin: 06/17/18 13:37 Dose: Not Given Levothyroxine Sodium (Synthroid) 50 mcg PO 0600 [facility] Multivitamins/Minerals (Therapeutic-M Tab) 1 tab PO DAILY [facility] Last Admin: 06/17/18 09:07 Dose: 1 tab Nicotine (Nicoderm Cq) 1 patch TD DAILY [facility] Last Admin: 06/17/18 09:07 Dose: 1 patch Ondansetron HCl (Zofran Inj) 4 mg IVP Q4H PRN PRN Reason: Nausea/Vomiting Last Admin: 06/17/18 11:38 Dose: 4 mg Pantoprazole Sodium (Protonix Ec Tab) 40 mg PO 0600 [facility] Last Admin: 06/17/18 09:06 Dose: 40 mg Potassium Chloride (K-Dur 20 Meq Er Tab) 20 meq PO Q12H [facility] Tamsulosin HCl (Flomax) 0.4 mg PO DAILY [facility] Last Admin: 06/17/18 09:02 Dose: 0.4 mg Thiamine HCl (Vitamin B1 Tab) 100 mg PO DAILY [facility] Last Admin: 06/17/18 09:02 Dose: 100 mg Physical Exam - Constitutional Appears: Non-toxic, No Acute Distress - Head Exam Head Exam: ATRAUMATIC, NORMOCEPHALIC - Eye Exam Eye Exam: EOMI - ENT Exam ENT Exam: Mucous Membranes Moist - Neck Exam Neck exam: Positive for: Normal Inspection - Respiratory Exam Respiratory Exam: absent: Rales - Cardiovascular Exam Cardiovascular Exam: +S1, +S2 - GI/Abdominal Exam GI & Abdominal Exam: Distended, Soft. absent: Tenderness - Extremities Exam Extremities exam: Negative for: tenderness - Neurological Exam Neurological exam: Alert, Oriented x3 - Psychiatric Exam Psychiatric exam: Normal Affect, Normal Mood - Skin Skin Exam: Dry, Warm Results - Vital Signs Recent Vital Signs: Last Vital Signs Temp 98.7 F 06/17/18 12:00 Pulse 93 H 06/17/18 12:00 Resp 20 06/17/18 12:00 BP 119/74 06/17/18 12:00 Pulse Ox 99 06/17/18 06:00 - Labs Result Diagrams: 06/17/18 05:09 06/16/18 23:15 Labs: Laboratory Results - last 24 hr 06/16/18 06/16/18 06/16/18 23:15 23:15 23:15 WBC 7.6 RBC 4.19 Hgb 13.3 L Hct 39.9 L MCV 95.2 D MCH 31.7 MCHC 33.3 RDW 14.8 H Plt Count 139 Manual Plt Count MPV 10.1 Neut % (Auto) Lymph % (Auto) [place] % (Auto) Eos % (Auto) Baso % (Auto) Lymph # (Auto) [place] # (Auto) Eos # (Auto) Baso # (Auto) Absolute Neuts (auto) PT INR APTT Sodium 135 Potassium 3.3 L Chloride 96 L Carbon Dioxide 20 L Anion Gap 23 H BUN 10 Creatinine 0.7 L Est GFR ( Amer) > 60 Est GFR (Non-Af Amer) > 60 Random Glucose 94 Lactic Acid Calcium 9.0 Total Bilirubin 4.8 H Direct Bilirubin AST 178 H D ALT 26 Alkaline Phosphatase 267 H Lactate Dehydrogenase 595 Total Creatine Kinase 379 H CK-MB (CK-2) 2.5 CK-MB (CK-2) % Cancelled Troponin I < 0.01 Total Protein 8.3 Albumin 3.7 Globulin 4.6 Albumin/Globulin Ratio 0.8 L Lipase 104 Urine Color Urine Appearance Urine pH Ur Specific Thompson Urine Protein Urine Glucose (UA) Urine Ketones Urine Blood Urine Nitrate Urine Bilirubin Urine Urobilinogen Ur Leukocyte Esterase Urine RBC Urine WBC Ur Epithelial Cells Amorphous Sediment Urine Bacteria Alcohol, Quantitative < 10 06/17/18 06/17/18 06/17/18 02:50 05:09 05:09 WBC 6.2 RBC 3.81 Hgb 12.1 L Hct 36.3 L MCV 95.3 MCH 31.8 MCHC 33.3 RDW 14.9 H Plt Count 103 L Manual Plt Count MPV 10.0 Neut % (Auto) 59.3 Lymph % (Auto) 25.9 [place] % (Auto) 11.9 H Eos % (Auto) 1.9 Baso % (Auto) 1.0 Lymph # (Auto) 1.6 [place] # (Auto) 0.7 H Eos # (Auto) 0.1 Baso # (Auto) 0.06 Absolute Neuts (auto) 3.68 PT INR APTT Sodium Potassium Chloride Carbon Dioxide Anion Gap BUN Creatinine Est GFR ( Amer) Est GFR (Non-Af Amer) Random Glucose Lactic Acid 1.0 Calcium Total Bilirubin Direct Bilirubin AST ALT Alkaline Phosphatase Lactate Dehydrogenase Total Creatine Kinase CK-MB (CK-2) CK-MB (CK-2) % Troponin I Total Protein Albumin Globulin Albumin/Globulin Ratio Lipase Urine Color Dark yellow Urine Appearance Sl cloudy Urine pH 6.5 Ur Specific Thompson >= 1.030 Urine Protein 100 H Urine Glucose (UA) Negative Urine Ketones >=80 Urine Blood Small H Urine Nitrate Positive H Urine Bilirubin Large H Urine Urobilinogen >=8.0 Ur Leukocyte Esterase Negative Urine RBC 0 - 2 Urine WBC 0 - 2 Ur Epithelial Cells 1 - 3 Amorphous Sediment Few Urine Bacteria Few Alcohol, Quantitative 06/17/18 06/17/18 06/17/18 06:50 07:55 07:55 WBC RBC Hgb Hct MCV MCH MCHC RDW Plt Count Manual Plt Count 99 L MPV Neut % (Auto) Lymph % (Auto) [place] % (Auto) Eos % (Auto) Baso % (Auto) Lymph # (Auto) [place] # (Auto) Eos # (Auto) Baso # (Auto) Absolute Neuts (auto) PT 18.2 H INR 1.61 APTT 37.4 Sodium Potassium Chloride Carbon Dioxide Anion Gap BUN Creatinine Est GFR ( Amer) Est GFR (Non-Af Amer) Random Glucose Lactic Acid Calcium Total Bilirubin 3.8 H Direct Bilirubin 2.4 H AST 149 H ALT 26 Alkaline Phosphatase 199 H D Lactate Dehydrogenase Total Creatine Kinase CK-MB (CK-2) CK-MB (CK-2) % Troponin I Total Protein 7.3 Albumin 3.0 Globulin 4.2 Albumin/Globulin Ratio 0.7 L Lipase Urine Color Urine Appearance Urine pH Ur Specific [place] Urine Protein Urine Glucose (UA) Urine Ketones Urine Blood Urine Nitrate Urine Bilirubin Urine Urobilinogen Ur Leukocyte Esterase Urine RBC Urine WBC Ur Epithelial Cells Amorphous Sediment Urine Bacteria Alcohol, Quantitative Assessment & Plan - Assessment and Plan (Free Text) Assessment: 57 year old male with a PMH of alcoholic hepatitis and cirrhosis, hiatal hernia, diverticulosis, hypertension, COPD, hypothyroidism, DM, polysubstance abuse who presented with complaints of dark stools and abdominal discomfort. Infectious disease consultation was requested for questionable SBP. Plan: Alcoholic cirrhosis, uncompensated with large ascites s/p IR paracentesis Concern for SBP Afebrile No leukocytosis S/p parecentesis, will see what cytology and albumin, LDH show Noted currently on zosyn for empiric converage, will continue Abstinence from alcohol recommended Agree with low salt diet GI evaluation appreciated Patient was seen and examined and case to be discussed with attending physician. Thank you for the pleasure of participating in the care of this interesting patient. - Date & Time Date: 06/17/18 Time: 17:12 <Koko Saha - Last Filed: 06/17/18 18:40> Meds - Medications Medications: Current Medications Acetylcysteine (Acetylcysteine 20%) 4 ml IH [id number] [facility] Last Admin: 06/17/18 13:37 Dose: Not Given Chlordiazepoxide (Librium) 50 mg PO Q4H PRN PRN Reason: Symptoms of alcohol withdrawl Last Admin: 06/17/18 14:11 Dose: 50 mg Clonidine HCl (Catapres) 0.1 mg PO Q4H PRN PRN Reason: Symptoms of alcohol withdrawl Diltiazem HCl (Cardizem Cd) 120 mg PO DAILY [facility] Last Admin: 06/17/18 09:06 Dose: 120 mg Ergocalciferol (Drisdol 50,000 Intl Units Cap) 1 cap PO Q7D [facility] Last Admin: 06/17/18 09:07 Dose: 1 cap Folic Acid (Folic Acid) 1 mg PO DAILY [facility] Last Admin: 06/17/18 09:06 Dose: 1 mg Furosemide (Lasix) 40 mg IVP DAILY [facility] Last Admin: 06/17/18 09:02 Dose: 40 mg Folic Acid 1 mg/ Thiamine HCl 100 mg/ Multivitamins/Vitamin C 10 ml/ Dextrose 1,011.2 mls @ 100 mls/hr IV .Q10H7M [facility] Last Admin: 06/17/18 09:01 Dose: 100 mls/hr Piperacillin Sod/Tazobactam Sod (Zosyn 3.375 In Ns 100ml) 100 mls @ 25 mls/hr IVPB Q8 [facility]; Protocol Stop: 06/21/18 01:59 Last Admin: 06/17/18 15:59 Dose: 25 mls/hr Levalbuterol HCl (Xopenex) 0.63 mg IH [id number] [facility] Last Admin: 06/17/18 13:37 Dose: Not Given Levothyroxine Sodium (Synthroid) 50 mcg PO 0600 [facility] Multivitamins/Minerals (Therapeutic-M Tab) 1 tab PO DAILY [facility] Last Admin: 06/17/18 09:07 Dose: 1 tab Nicotine (Nicoderm Cq) 1 patch TD DAILY [facility] Last Admin: 06/17/18 09:07 Dose: 1 patch Ondansetron HCl (Zofran Inj) 4 mg IVP Q4H PRN PRN Reason: Nausea/Vomiting Last Admin: 06/17/18 11:38 Dose: 4 mg Pantoprazole Sodium (Protonix Ec Tab) 40 mg PO 0600 [facility] Last Admin: 06/17/18 09:06 Dose: 40 mg Potassium Chloride (K-Dur 20 Meq Er Tab) 20 meq PO Q12H [facility] Tamsulosin HCl (Flomax) 0.4 mg PO DAILY [facility] Last Admin: 06/17/18 09:02 Dose: 0.4 mg Thiamine HCl (Vitamin B1 Tab) 100 mg PO DAILY [facility] Last Admin: 06/17/18 09:02 Dose: 100 mg Results - Vital Signs Recent Vital Signs: Last Vital Signs Temp 98 F 06/17/18 17:24 Pulse 73 06/17/18 17:24 Resp 20 06/17/18 17:24 BP 99/63 L 06/17/18 17:24 Pulse Ox 99 06/17/18 06:00 - Labs Result Diagrams: 06/17/18 05:09 06/16/18 23:15 Labs: Laboratory Results - last 24 hr 06/16/18 06/16/18 06/16/18 23:15 23:15 23:15 WBC 7.6 RBC 4.19 Hgb 13.3 L Hct 39.9 L MCV 95.2 D MCH 31.7 MCHC 33.3 RDW 14.8 H Plt Count 139 Manual Plt Count MPV 10.1 Neut % (Auto) Lymph % (Auto) [place] % (Auto) Eos % (Auto) Baso % (Auto) Lymph # (Auto) [place] # (Auto) Eos # (Auto) Baso # (Auto) Absolute Neuts (auto) PT INR APTT Sodium 135 Potassium 3.3 L Chloride 96 L Carbon Dioxide 20 L Anion Gap 23 H BUN 10 Creatinine 0.7 L Est GFR ( Amer) > 60 Est GFR (Non-Af Amer) > 60 Random Glucose 94 Lactic Acid Calcium 9.0 Total Bilirubin 4.8 H Direct Bilirubin AST 178 H D ALT 26 Alkaline Phosphatase 267 H Lactate Dehydrogenase 595 Total Creatine Kinase 379 H CK-MB (CK-2) 2.5 CK-MB (CK-2) % Cancelled Troponin I < 0.01 Total Protein 8.3 Albumin 3.7 Globulin 4.6 Albumin/Globulin Ratio 0.8 L Lipase 104 Urine Color Urine Appearance Urine pH Ur Specific [place] Urine Protein Urine Glucose (UA) Urine Ketones Urine Blood Urine Nitrate Urine Bilirubin Urine Urobilinogen Ur Leukocyte Esterase Urine RBC Urine WBC Ur Epithelial Cells Amorphous Sediment Urine Bacteria Alcohol, Quantitative < 10 06/17/18 06/17/18 06/17/18 02:50 05:09 05:09 WBC 6.2 RBC 3.81 Hgb 12.1 L Hct 36.3 L MCV 95.3 MCH 31.8 MCHC 33.3 RDW 14.9 H Plt Count 103 L Manual Plt Count MPV 10.0 Neut % (Auto) 59.3 Lymph % (Auto) 25.9 [place] % (Auto) 11.9 H Eos % (Auto) 1.9 Baso % (Auto) 1.0 Lymph # (Auto) 1.6 [place] # (Auto) 0.7 H Eos # (Auto) 0.1 Baso # (Auto) 0.06 Absolute Neuts (auto) 3.68 PT INR APTT Sodium Potassium Chloride Carbon Dioxide Anion Gap BUN Creatinine Est GFR ( Amer) Est GFR (Non-Af Amer) Random Glucose Lactic Acid 1.0 Calcium Total Bilirubin Direct Bilirubin AST ALT Alkaline Phosphatase Lactate Dehydrogenase Total Creatine Kinase CK-MB (CK-2) CK-MB (CK-2) % Troponin I Total Protein Albumin Globulin Albumin/Globulin Ratio Lipase Urine Color Dark yellow Urine Appearance Sl cloudy Urine pH 6.5 Ur Specific [place] >= 1.030 Urine Protein 100 H Urine Glucose (UA) Negative Urine Ketones >=80 Urine Blood Small H Urine Nitrate Positive H Urine Bilirubin Large H Urine Urobilinogen >=8.0 Ur Leukocyte Esterase Negative Urine RBC 0 - 2 Urine WBC 0 - 2 Ur Epithelial Cells 1 - 3 Amorphous Sediment Few Urine Bacteria Few Alcohol, Quantitative 06/17/18 06/17/18 06/17/18 06:50 07:55 07:55 WBC RBC Hgb Hct MCV MCH MCHC RDW Plt Count Manual Plt Count 99 L MPV Neut % (Auto) Lymph % (Auto) [place] % (Auto) Eos % (Auto) Baso % (Auto) Lymph # (Auto) [place] # (Auto) Eos # (Auto) Baso # (Auto) Absolute Neuts (auto) PT 18.2 H INR 1.61 APTT 37.4 Sodium Potassium Chloride Carbon Dioxide Anion Gap BUN Creatinine Est GFR ( Amer) Est GFR (Non-Af Amer) Random Glucose Lactic Acid Calcium Total Bilirubin 3.8 H Direct Bilirubin 2.4 H AST 149 H ALT 26 Alkaline Phosphatase 199 H D Lactate Dehydrogenase Total Creatine Kinase CK-MB (CK-2) CK-MB (CK-2) % Troponin I Total Protein 7.3 Albumin 3.0 Globulin 4.2 Albumin/Globulin Ratio 0.7 L Lipase Urine Color Urine Appearance Urine pH Ur Specific [place] Urine Protein Urine Glucose (UA) Urine Ketones Urine Blood Urine Nitrate Urine Bilirubin Urine Urobilinogen Ur Leukocyte Esterase Urine RBC Urine WBC Ur Epithelial Cells Amorphous Sediment Urine Bacteria Alcohol, Quantitative Attending/Attestation - Attestation I have personally seen and examined this patient.: Yes I have fully participated in the care of the patient.: Yes I have reviewed all pertinent clinical information: Yes
--- NOTE | 2018-06-17 17:26 | US ---
PROCEDURE: Ultrasound guided paracentesis. HISTORY: Alcoholic cirrhosis Recurrent ascites with abdominal pain and distension. PHYSICIAN(S): Jeronimo Adrian MD. TECHNIQUE: The relative risks and indications for the procedure were explained to the patient and informed written consent obtained. Sonography of the abdomen was performed in a supine position. This revealed a moderate amount of non-loculated ascites, greatest in the right lower quadrant. A puncture site was selected and the area was prepped and draped in the usual sterile fashion. 1% Xylocaine was used to anesthetize the skin and soft tissues. A 7 [place] paracentesis catheter was trocared into the right lower quadrantand 6700 cc of clear, straw-colored fluid aspirated. No labs were sent IMPRESSION: Ultrasound-guided paracentesis in the right lower quadrant. 6700 cc of clear straw-colored fluid was aspirated
[2018-06-18] MEDS: Acetylcysteine 20% Inhal Soln (4ml) IH SCH ×3 (01:37→14:59)
[2018-06-18] MEDS: Levalbuterol 0.63 MG/3 ML Inhal Soln UD IH SCH ×4 (01:37→19:51)
[2018-06-18] MEDS: Piperacillin/Tazobact 3.375 gm 100 ML IVPB SCH ×3 (05:30→21:45)
[2018-06-18] MEDS: Pantoprazole 40 mg EC Tab PO SCH (05:31)
[2018-06-18] MEDS: Levothyroxine 50 MCG TAB PO SCH (05:41)
[2018-06-18 07:17] LABS: BASO # 0.04 K/mm3 (0.0-2.0); EOS # 0.2 (0.0-0.7); EOS % 4.4 % (1.5-5.0); HEMOGLOBIN 12.6 g/dL (14.0-18.0); LYMPH # 1.2 (1.2-3.4); LYMPH % 28.1 % (22.0-35.0); MEAN CELL VOLUME 94.7 fl (80.0-105.0); MEAN CORPUSCULAR HEMOGLOBIN 31.6 pg (25.0-35.0); MEAN CORPUSCULAR HGB CONC 33.3 g/dl (31.0-37.0); MEAN PLATELET VOLUME 10.2 fl (7.0-11.0); MONO # 0.5 (0.1-0.6); MONO % 12.3 % (1.0-6.0); RBC 3.99 10^6/uL (3.5-6.1); RED CELL DISTRIBUTION WIDTH 14.4 % (11.5-14.5); WHITE BLOOD COUNT 4.1 10^3/uL (4.5-11.0)
[2018-06-18 07:43] LABS: ALB/GLOB RATIO 0.7 (1.1-1.8); ALBUMIN 3.1 g/dL (3.0-4.8); ALT/SGPT 30 U/L (7-56); AST/SGOT 131 U/L (17-59); BILIRUBIN,DIRECT 2.2 mg/dL (0.0-0.4); BLOOD UREA NITROGEN 7 mg/dL (7-21); CALCIUM 8.6 mg/dL (8.4-10.5); GFR NON-AFRICAN AMERICAN > 60
[2018-06-18] MEDS ORDERED: Potassium Chloride 40 mEq/30 ml LIQ UD PO ONE (08:09)
[2018-06-18] MEDS ORDERED: Potassium Phosphate 15 MMOLE in Sodium Chloride 0.9% 250 ML IVPB ONE ×2 (08:11→11:30)
[2018-06-18] MEDS ORDERED: Magnesium Sulfate 1 gm in D5W 1 GM/100 ML BAG IVPB ONE ×2 (08:12→10:47)
--- NOTE | 2018-06-18 08:29 | HP ---
DATE OF EXAM: 06/17/2018 LOCATION: The patient is now admitted to room 275, bed 1. HISTORY OF PRESENT ILLNESS: The patient is seen, examined. The patient's diagnostic data, vital signs, imaging studies all were reviewed. The patient's allergies, medications, past medical history, surgical history, occupational history, family history, social history all reviewed. Please refer to the detailed history physical by the territory sales manager medical. ADMITTING IMPRESSION 1. Questionable and possible gastrointestinal bleed with melena. 2 Tachycardia. 3. Anemia. 4. Thrombocytopenia. 5. Questionable coagulopathy secondary to alcoholic cirrhosis. 6. Increased anion gap metabolic acidosis. 7. Hypokalemia. 8. Severe transaminitis with hyperbilirubinemia. 9. Proteinuria. 10. Ketonuria. 11. Hematuria. 12. Pyuria, bacteriuria. 13. Severe hepatic cirrhosis. 14. Worsening abdominal ascites. 15. Diffuse colitis, predominantly involving ascending colon and cecum. 16. Active alcohol abuse and polysubstance abuse and nicotine dependence. 17. Noncompliance and poor compliance. PLAN: At this time; 1. The patient is admitted to telemetry. The patient is started on CIWA protocol. The patient is started on broad-spectrum IV antibiotic. The patient is started on most of his home medication. The patient will be continued on all the therapeutic intervention as per the MAR. 2. The patient has been ordered serial labs. 3. Consultation; Gastroenterology and Interventional Radiology and Infectious Disease. 4. The patient will be put on neuro checks, CIWA protocol, Librium p.r.n., pharmacological non-pharmacological GI, DVT prophylaxis. The patient has been advised and recounseled about cessation of smoking, alcohol and polysubstance abuse and use. At present, the patient's further management will be dependent upon the patient's clinical condition, hemodynamic status and as per the patient response to therapeutic intervention, as per the patient's diagnostic test results, and as per recommendations by all the physicians involved in the care of the patient. Dictated and electronically signed, not read. Rai Maya MD
--- NOTE | 2018-06-18 08:34 | PN ---
DATE: 06/18/2018 LOCATION: The patient is in room 275, bed 1. SUBJECTIVE: Overnight events were reviewed. The patient underwent large volume paracentesis with removal of 6.7 liters of ascitic fluid. The patient tolerated the procedure well. The patient denies any melena. OBJECTIVE: VITAL SIGNS: T-max 98.4. Telemetry shows sinus rhythm. Heart rate 86, 95, 98. Blood pressure 100/56, respirations 18, O2 sat is 95%. HEENT: The patient's head examination normocephalic, atraumatic. HEENT examination shows pinkish pale conjunctivae, slightly positive icteric sclerae. No oropharyngeal lesion. NECK: No neck rigidity. CHEST: Kyphosis. LUNGS: Decreased breath sound at the bases. Occasional rhonchi upper anterior lung field CARDIOVASCULAR: S1, S2. Regular rhythm. ABDOMEN: Protuberant, distended. Positive ascites. Unable to appreciate any hepatosplenomegaly. GENITALIA: Male. RECTAL: Deferred. EXTREMITIES: Show almost complete resolution of the pitting edema of the lower extremity. MUSCULOSKELETAL: As per the BMI. NEUROLOGIC: The patient is alert, awake, responsive. No asterixis noted. DIAGNOSTIC DATA: From 06/18/2018, still pending. IMPRESSION AND PLAN: 1. Questionable melena with questionable gastrointestinal bleeding. 2. Anemia. 3. Thrombocytopenia. 4. Coagulopathy. 5. Advanced alcoholic hepatic cirrhosis. 6. Hyperbilirubinemia. 7. Transaminitis. 8. Massive ascites. 9. Status post large volume paracentesis with removal of 6.7 liters of ascites fluid. 10. Alcoholic cirrhosis and alcoholic hepatitis. 11. Questionable subacute bacterial peritonitis. 12. Alcoholism 13. Increased anion gap metabolic acidosis. 14. Hypokalemia. 15. Proteinuria, ketonuria, microscopic hematuria, pyuria, bacteriuria. 16. Questionable ascending colon, cecal, and colonic colitis. 17. Poor compliance. 18. Active nicotine, alcohol, and polysubstance abuse and dependence. 19. Impending alcohol withdrawal. 20. Tachycardia. 1. Questionable and possible gastrointestinal bleed with melena. 2 Tachycardia. 3. Anemia. 4. Thrombocytopenia. 5. Questionable coagulopathy secondary to alcoholic cirrhosis. 6. Increased anion gap metabolic acidosis. 7. Hypokalemia. 8. Severe transaminitis with hyperbilirubinemia. 9. Proteinuria. 10. Ketonuria. 11. Hematuria. 12. Pyuria, bacteriuria. 13. Severe hepatic cirrhosis. 14. Worsening abdominal ascites. 15. Diffuse colitis, predominantly involving ascending colon and cecum. 16. Active alcohol abuse and polysubstance abuse and nicotine dependence. 17. Noncompliance and poor compliance. Plan at this time, the patient is to be continued on the therapeutic intervention as per the MAR of today which was reviewed. Consultation Gastroenterology, Infectious Disease. The patient is on empiric IV antibiotic as per Infectious Disease. GI and infectious disease recommendations were reviewed which are reinforced to the patient directly by the respective subspecialty. In addition, I have also reinforced the recommendation by the subspecialty to the patient. The patient has also been recounseled about cessation of smoking, alcohol, and polysubstance abuse. The patient has been ordered serial labs. The patient has been ordered out of bed to chair, physical therapy, occupational therapy, ambulation therapy. The patient will be continued on CIWA with alcohol withdrawal protocol. Complete stabilization. The patient's diagnostic data will be reviewed when available. Dictated and electronically signed, not read. Rai Maya MD [email or web address]
[2018-06-18] MEDS: diltiaZEM 120 mg/24 Hours CD Cap PO SCH (10:46)
[2018-06-18] MEDS ORDERED: Magnesium Sulfate 2 gm/50 ml 2 GM/50 ML BAG IVPB ONE (10:47)
[2018-06-18] MEDS: Multivitamin With Minerals Tab PO SCH (10:47)
[2018-06-18] MEDS: Potassium Chloride 20 mEq ER Tab PO SCH ×2 (10:47→21:45)
[2018-06-18] MEDS ORDERED: Potassium Phosphate 3 mmol/ml Inj IV ONE (11:00)
--- NOTE | 2018-06-18 11:17 | CP.PCM.PN ---
<Elver Delgadillo - Last Filed: 06/18/18 11:11> Subjective - Date & Time of Evaluation Date of Evaluation: 06/18/18 Time of Evaluation: 09:20 - Subjective Subjective: Elver Delgadillo D.O. PGY-3, Internal Medicine Resident, Infectious Disease Progress Note 57 year old male with a PMH of alcoholic hepatitis and cirrhosis, hiatal hernia, diverticulosis, hypertension, COPD, hypothyroidism, DM, polysubstance abuse who presented with complaints of dark stools and abdominal discomfort. Infectious disease consultation was requested for questionable SBP. Patient was seen and examined at bedside. Feeling overall better. Belly somewhat sore. Objective - Vital Signs/Intake and Output Vital Signs (last 24 hours): Temp Pulse Resp BP Pulse Ox 97.5 F L 101 H 18 100/62 96 06/18/18 06:00 06/18/18 10:46 06/18/18 06:00 06/18/18 10:46 06/18/18 06:00 Intake and Output: 06/18/18 06/18/18 06:59 18:59 Intake Total 2440 Output Total 1675 Balance 765 - Medications Medications: Current Medications Acetylcysteine (Acetylcysteine 20%) 4 ml IH [id number] [facility] Last Admin: 06/18/18 08:47 Dose: Not Given Chlordiazepoxide (Librium) 50 mg PO Q4H PRN PRN Reason: Symptoms of alcohol withdrawl Last Admin: 06/17/18 14:11 Dose: 50 mg Clonidine HCl (Catapres) 0.1 mg PO Q4H PRN PRN Reason: Symptoms of alcohol withdrawl Diltiazem HCl (Cardizem Cd) 120 mg PO DAILY [facility] Last Admin: 06/18/18 10:46 Dose: 120 mg Ergocalciferol (Drisdol 50,000 Intl Units Cap) 1 cap PO Q7D DOC Last Admin: 06/17/18 09:07 Dose: 1 cap Folic Acid (Folic Acid) 1 mg PO DAILY [facility] Last Admin: 06/18/18 10:46 Dose: 1 mg Furosemide (Lasix) 40 mg IVP DAILY [facility] Last Admin: 06/18/18 10:41 Dose: 40 mg Piperacillin Sod/Tazobactam Sod (Zosyn 3.375 In Ns 100ml) 100 mls @ 25 mls/hr IVPB Q8 DOC; Protocol Stop: 06/21/18 01:59 Last Admin: 06/18/18 05:30 Dose: 25 mls/hr Potassium Phosphate 15 mmole/ (Sodium Chloride) 255 mls @ 42.5 mls/hr IVPB ONCE ONE Stop: 06/18/18 14:10 Last Admin: 06/18/18 08:56 Dose: 42.5 mls/hr Magnesium Sulfate (Magnesium Sulfate 2 Gm/50 Ml Water) 2 gm in 50 mls @ 50 mls/hr IVPB ONCE ONE Stop: 06/18/18 11:46 Magnesium Sulfate/Dextrose (Magnesium Sulfate 1 Gm/100 Ml D5w) 1 gm in 100 mls @ 100 mls/hr IVPB ONCE ONE Stop: 06/18/18 11:46 Levalbuterol HCl (Xopenex) 0.63 mg IH [id number] [facility] Last Admin: 06/18/18 08:47 Dose: Not Given Levothyroxine Sodium (Synthroid) 50 mcg PO 0600 [facility] Last Admin: 06/18/18 05:41 Dose: 50 mcg Multivitamins/Minerals (Therapeutic-M Tab) 1 tab PO DAILY [facility] Last Admin: 06/18/18 10:47 Dose: 1 tab Nicotine (Nicoderm Cq) 1 patch TD DAILY [facility] Last Admin: 06/18/18 10:46 Dose: 1 patch Ondansetron HCl (Zofran Inj) 4 mg IVP Q4H PRN PRN Reason: Nausea/Vomiting Last Admin: 06/17/18 11:38 Dose: 4 mg Pantoprazole Sodium (Protonix Ec Tab) 40 mg PO 0600 [facility] Last Admin: 06/18/18 05:31 Dose: 40 mg Potassium Chloride (K-Dur 20 Meq Er Tab) 20 meq PO Q12H [facility] Last Admin: 06/18/18 10:47 Dose: 20 meq Potassium Phosphate (Potassium Phosphate) 15 mmole IV ONCE ONE Stop: 06/18/18 11:01 Tamsulosin HCl (Flomax) 0.4 mg PO DAILY [facility] Last Admin: 06/18/18 10:47 Dose: 0.4 mg Thiamine HCl (Vitamin B1 Tab) 100 mg PO DAILY [facility] Last Admin: 06/18/18 10:46 Dose: 100 mg - Labs Labs: 06/18/18 06:30 06/18/18 06:30 PT 18.2 SECONDS (9.4-12.5) H 06/17/18 06:50 INR 1.61 06/17/18 06:50 APTT 37.4 Seconds (26.9-38.3) 06/17/18 06:50 - Constitutional Appears: Non-toxic, No Acute Distress - Head Exam Head Exam: ATRAUMATIC, NORMOCEPHALIC - Eye Exam Eye Exam: EOMI - ENT Exam ENT Exam: Mucous Membranes Moist - Neck Exam Neck exam: Positive for: Normal Inspection - Respiratory Exam Respiratory Exam: absent: Rales - Cardiovascular Exam Cardiovascular Exam: +S1, +S2 - GI/Abdominal Exam GI & Abdominal Exam: Distended, Soft. absent: Tenderness - Extremities Exam Extremities exam: Negative for: tenderness - Neurological Exam Neurological exam: Alert, Oriented x3 - Psychiatric Exam Psychiatric exam: Normal Affect, Normal Mood - Skin Skin Exam: Dry, Warm Assessment and Plan - Assessment and Plan (Free Text) Assessment: 57 year old male with a PMH of alcoholic hepatitis and cirrhosis, hiatal hernia, diverticulosis, hypertension, COPD, hypothyroidism, DM, polysubstance abuse who presented with complaints of dark stools and abdominal discomfort. Infectious disease consultation was requested for questionable SBP. Plan: Alcoholic cirrhosis, uncompensated with large ascites s/p IR paracentesis Concern for SBP Afebrile No leukocytosis No tachycardia S/p 6.7L paracentesis, no ascitic fluid sent for analysis by IR Currently on zosyn for empiric converage, will continue day 2 Patient was seen and examined and case to be discussed with attending physician. Thank you for the pleasure of participating in the care of this interesting patient. <Koko Saha - Last Filed: 06/18/18 12:45> Objective - Vital Signs/Intake and Output Vital Signs (last 24 hours): Temp Pulse Resp BP Pulse Ox 97.6 F 97 H 20 105/77 96 06/18/18 12:00 06/18/18 12:00 06/18/18 12:00 06/18/18 12:00 06/18/18 06:00 Intake and Output: 06/18/18 06/18/18 06:59 18:59 Intake Total 2440 Output Total 1675 Balance 765 - Medications Medications: Current Medications Acetylcysteine (Acetylcysteine 20%) 4 ml IH [id number] [facility] Last Admin: 06/18/18 08:47 Dose: Not Given Chlordiazepoxide (Librium) 50 mg PO Q4H PRN PRN Reason: Symptoms of alcohol withdrawl Last Admin: 06/17/18 14:11 Dose: 50 mg Clonidine HCl (Catapres) 0.1 mg PO Q4H PRN PRN Reason: Symptoms of alcohol withdrawl Diltiazem HCl (Cardizem Cd) 120 mg PO DAILY [facility] Last Admin: 06/18/18 10:46 Dose: 120 mg Ergocalciferol (Drisdol 50,000 Intl Units Cap) 1 cap PO Q7D [facility] Last Admin: 06/17/18 09:07 Dose: 1 cap Folic Acid (Folic Acid) 1 mg PO DAILY [facility] Last Admin: 06/18/18 10:46 Dose: 1 mg Furosemide (Lasix) 40 mg IVP DAILY [facility] Last Admin: 06/18/18 10:41 Dose: 40 mg Piperacillin Sod/Tazobactam Sod (Zosyn 3.375 In Ns 100ml) 100 mls @ 25 mls/hr IVPB Q8 [facility]; Protocol Stop: 06/21/18 01:59 Last Admin: 06/18/18 05:30 Dose: 25 mls/hr Potassium Phosphate 15 mmole/ (Sodium Chloride) 255 mls @ 42.5 mls/hr IVPB ONCE ONE Stop: 06/18/18 14:10 Last Admin: 06/18/18 08:56 Dose: 42.5 mls/hr Potassium Phosphate 15 mmole/ (Sodium Chloride) 255 mls @ 42.5 mls/hr IVPB ONCE ONE Stop: 06/18/18 17:29 Sodium Chloride (Sodium Chloride 0.9%) 1,000 mls @ 100 mls/hr IV .Q10H [facility] Levalbuterol HCl (Xopenex) 0.63 mg IH [id number] [facility] Last Admin: 06/18/18 08:47 Dose: Not Given Levothyroxine Sodium (Synthroid) 50 mcg PO 0600 [facility] Last Admin: 06/18/18 05:41 Dose: 50 mcg Multivitamins/Minerals (Therapeutic-M Tab) 1 tab PO DAILY [facility] Last Admin: 06/18/18 10:47 Dose: 1 tab Nicotine (Nicoderm Cq) 1 patch TD DAILY [facility] Last Admin: 06/18/18 10:46 Dose: 1 patch Ondansetron HCl (Zofran Inj) 4 mg IVP Q4H PRN PRN Reason: Nausea/Vomiting Last Admin: 06/17/18 11:38 Dose: 4 mg Pantoprazole Sodium (Protonix Ec Tab) 40 mg PO 0600 [facility] Last Admin: 06/18/18 05:31 Dose: 40 mg Potassium Chloride (K-Dur 20 Meq Er Tab) 20 meq PO Q12H DOC Last Admin: 06/18/18 10:47 Dose: 20 meq Tamsulosin HCl (Flomax) 0.4 mg PO DAILY [facility] Last Admin: 06/18/18 10:47 Dose: 0.4 mg Thiamine HCl (Vitamin B1 Tab) 100 mg PO DAILY [facility] Last Admin: 06/18/18 10:46 Dose: 100 mg - Labs Labs: 06/18/18 06:30 06/18/18 06:30 PT 18.2 SECONDS (9.4-12.5) H 06/17/18 06:50 INR 1.61 06/17/18 06:50 APTT 37.4 Seconds (26.9-38.3) 06/17/18 06:50 Attending/Attestation - Attestation I have personally seen and examined this patient.: Yes I have fully participated in the care of the patient.: Yes I have reviewed all pertinent clinical information, including history, physical exam and plan: Yes
--- NOTE | 2018-06-18 15:09 | PN ---
DATE: 06/18/2018 SUBJECTIVE: The patient is lying in bed, comfortable. He feels better after his large volume paracentesis. He denies any melena or rectal bleeding, nausea, vomiting, hematemesis or abdominal pain. PHYSICAL EXAMINATION: VITAL SIGNS: Temperature of 97.6, blood pressure 105/77, heart rate 97. HEENT: Reveal sclerae to be white. Conjunctivae pink. NECK: Supple. CHEST: Lungs are clear. HEART: Exam reveals a regular rate and rhythm. ABDOMEN: Softly distended. Ascites is less. EXTREMITIES: Show no edema. LABORATORY DATA: White blood cell count 4.1, hemoglobin 12.6. Chemistries reveal sodium of 131, magnesium 1.3, total bilirubin 3.8, direct bilirubin 2.2, AST 131, ALT 30, alkaline phosphatase of 210. Serum ammonia is 24. IMPRESSION: This 57-year-old male alcoholic with continued alcohol use of a pint to a pint and half pack daily with cirrhosis of the liver and recurrent ascites. The patient underwent a large volume paracentesis yesterday with Interventional Radiology with removal of 6 liters. Clinically, he feels better. RECOMMENDATIONS: Would continue the patient on Aldactone 50 mg three times a day, Lasix 40 mg once a day. Follow BUN and creatinine and the patient will need to refrain from further alcohol use. Gustavo Mcdonald MD
--- NOTE | 2018-06-18 16:00 | PCM.FALL ---
Post Fall Progress Note - Post Fall Fall Date: 06/18/18 Fall Time: 14:54 Description of Fall: Patient states he was getting up from the bed to use the urinal and felt dizzy as he stood up and then fell to the ground on his buttocks without hitting his head. Vitals were stable with BP of 107/91 with HR 97. About 5 minutes after code star was called, patient stated his dizziness was subsiding. Plan Orthostatic BP and discus with attending PMD CIWA ordered due to patient having tremors and last drink being 3 days prior. - Post Fall Exam Vital Sign: Temp Pulse Resp BP Pulse Ox 97.6 F 97 H 20 109/71 100 06/18/18 12:00 06/18/18 15:04 06/18/18 12:00 06/18/18 15:04 06/18/18 15:04 Skull Exam: Negative for: Scalp wound, Scalp hematoma, Scalp depression, Ridge in skull Eye Exam: Positive for: Pupils equal, Pupils reactive Ear Exam: Negative for: Bleeding Nose Exam: Negative for: Bleeding Skin Exam: Negative for: Lacerations, Grazes, Bruising Mouth Exam: Negative for: Tongue bitten Neck Exam: Negative for: Tenderness, Tingling, Weakness Spinal Exam: Negative for: Tenderness Chest Exam: Negative for: Difficulty breathing Abdomen Exam: Negative for: Tenderness Arm Exam: Positive for: Alteration in range of movement (tremors in hands bilaterally) Leg Exam: Negative for: Alteration in range of movement
[2018-06-18] MEDS: Sodium Chloride 0.9% 1,000 ML IV SCH ×2 (18:30→22:00)
--- NOTE | 2018-06-18 19:05 | CP.PCM.PN ---
Subjective - Date & Time of Evaluation Date of Evaluation: 06/18/18 Time of Evaluation: 09:00 - Subjective Subjective: Medicine progress note for Dr. Francesco Pollock PGY - 2 Patient seen and examined at bedside with no acute overnight events. Patient d enies any acute complants. Last CIWA was 2. Objective - Vital Signs/Intake and Output Vital Signs (last 24 hours): Temp Pulse Resp BP Pulse Ox 98 F 91 H 20 105/66 100 06/18/18 18:00 06/18/18 18:00 06/18/18 18:00 06/18/18 18:00 06/18/18 15:04 Intake and Output: 06/18/18 06/19/18 18:59 06:59 Intake Total 900 Output Total 1100 Balance -200 - Medications Medications: Current Medications Acetylcysteine (Acetylcysteine 20%) 4 ml IH [id number] [facility] Last Admin: 06/18/18 14:59 Dose: Not Given Chlordiazepoxide (Librium) 50 mg PO Q4H PRN PRN Reason: Symptoms of alcohol withdrawl Last Admin: 06/17/18 14:11 Dose: 50 mg Clonidine HCl (Catapres) 0.1 mg PO Q4H PRN PRN Reason: Symptoms of alcohol withdrawl Diltiazem HCl (Cardizem Cd) 120 mg PO DAILY [facility] Last Admin: 06/18/18 10:46 Dose: 120 mg Ergocalciferol (Drisdol 50,000 Intl Units Cap) 1 cap PO Q7D [facility] Last Admin: 06/17/18 09:07 Dose: 1 cap Folic Acid (Folic Acid) 1 mg PO DAILY [facility] Last Admin: 06/18/18 10:46 Dose: 1 mg Furosemide (Lasix) 40 mg IVP DAILY [facility] Last Admin: 06/18/18 10:41 Dose: 40 mg Piperacillin Sod/Tazobactam Sod (Zosyn 3.375 In Ns 100ml) 100 mls @ 25 mls/hr IVPB Q8 [facility]; Protocol Stop: 06/21/18 01:59 Last Admin: 06/18/18 14:10 Dose: 25 mls/hr Sodium Chloride (Sodium Chloride 0.9%) 1,000 mls @ 100 mls/hr IV .Q10H [facility] Last Admin: 06/18/18 18:30 Dose: 100 mls/hr Levalbuterol HCl (Xopenex) 0.63 mg IH [id number] [facility] Last Admin: 06/18/18 14:59 Dose: Not Given Levothyroxine Sodium (Synthroid) 50 mcg PO 0600 [facility] Last Admin: 06/18/18 05:41 Dose: 50 mcg Multivitamins/Minerals (Therapeutic-M Tab) 1 tab PO DAILY [facility] Last Admin: 06/18/18 10:47 Dose: 1 tab Nicotine (Nicoderm Cq) 1 patch TD DAILY [facility] Last Admin: 06/18/18 10:46 Dose: 1 patch Ondansetron HCl (Zofran Inj) 4 mg IVP Q4H PRN PRN Reason: Nausea/Vomiting Last Admin: 06/17/18 11:38 Dose: 4 mg Pantoprazole Sodium (Protonix Ec Tab) 40 mg PO 0600 [facility] Last Admin: 06/18/18 05:31 Dose: 40 mg Potassium Chloride (K-Dur 20 Meq Er Tab) 20 meq PO Q12H [facility] Last Admin: 06/18/18 10:47 Dose: 20 meq Spironolactone (Aldactone) 50 mg PO TID [facility] Last Admin: 06/18/18 18:45 Dose: 50 mg Tamsulosin HCl (Flomax) 0.4 mg PO DAILY [facility] Last Admin: 06/18/18 10:47 Dose: 0.4 mg Thiamine HCl (Vitamin B1 Tab) 100 mg PO DAILY [facility] Last Admin: 06/18/18 10:46 Dose: 100 mg - Labs Labs: 06/18/18 06:30 06/18/18 06:30 PT 18.2 SECONDS (9.4-12.5) H 06/17/18 06:50 INR 1.61 06/17/18 06:50 APTT 37.4 Seconds (26.9-38.3) 06/17/18 06:50 - Constitutional Appears: Well - Head Exam Head Exam: ATRAUMATIC, NORMAL INSPECTION, NORMOCEPHALIC - Eye Exam Eye Exam: EOMI, Normal appearance, PERRL Pupil Exam: NORMAL ACCOMODATION, PERRL - ENT Exam ENT Exam: Mucous Membranes Moist, Normal Exam - Neck Exam Neck Exam: Full ROM, Normal Inspection. absent: Lymphadenopathy - Respiratory Exam Respiratory Exam: Clear to Ausculation Bilateral, NORMAL BREATHING PATTERN - Cardiovascular Exam Cardiovascular Exam: REGULAR RHYTHM, +S1, +S2. absent: Murmur - GI/Abdominal Exam GI & Abdominal Exam: Soft, Normal Bowel Sounds. absent: Tenderness - Extremities Exam Extremities Exam: Full ROM, Normal Capillary Refill, Normal Inspection. absent: Joint Swelling, Pedal Edema - Back Exam Back Exam: NORMAL INSPECTION - Neurological Exam Neurological Exam: Alert, Awake, CN II-XII Intact, Normal Gait, Oriented x3 - Psychiatric Exam Psychiatric exam: Normal Affect, Normal Mood - Skin Skin Exam: Dry, Intact, Normal Color, Warm Assessment and Plan - Assessment and Plan (Free Text) Assessment: Patient is a 57 year old male with past medical history of alcoholic hepatitis and cirrhosis, hiatal hernia, diverticulosis, hypertension, COPD, hypothyroidism, T2DM, polysubstance abuse presenting with chief complaint of dark stools and abdominal discomfort. Plan: Dark stools/abdominal pain Afebrile, no leukocytosis; H/H stable - Zosyn q8h; Zofran; NS @ 100 - GI consulted: Agrees with PPI q12 Pancytopenia, likely 2/2 Infection VS Medication VS Alcohol Abuse HIV was negative on recent admission - Continue to monitor Ascites - IR consulted Alcohol withdrawal Last CIWA was 1 - D/c Tele - CIWA protocol, aspiriation, seizure precautions - Multivitamin/thimaine/folic acid daily Hypokalemia/Hypomagnesemia/Hypophosphatemia - Replenished - Continue to monitor Polysubstance abuse - Nicotine patch - Cessation counseling PPX - Protonix and SCDs
[2018-06-19] MEDS: Acetylcysteine 20% Inhal Soln (4ml) IH SCH ×5 (02:03→20:54)
[2018-06-19] MEDS: Levalbuterol 0.63 MG/3 ML Inhal Soln UD IH SCH ×4 (02:03→20:54)
[2018-06-19] MEDS: Pantoprazole 40 mg EC Tab PO SCH (05:39)
[2018-06-19] MEDS: Levothyroxine 50 MCG TAB PO SCH (05:39)
[2018-06-19] MEDS: Piperacillin/Tazobact 3.375 gm 100 ML IVPB SCH ×2 (05:40→14:08)
[2018-06-19 07:05] LABS: BASO # 0.04 K/mm3 (0.0-2.0); BASO % 0.9 % (0.0-3.0); EOS # 0.2 (0.0-0.7); EOS % 5.3 % (1.5-5.0); HEMOGLOBIN 11.7 g/dL (14.0-18.0); LYMPH # 1.1 (1.2-3.4); LYMPH % 25.4 % (22.0-35.0); MEAN CELL VOLUME 94.7 fl (80.0-105.0); MEAN CORPUSCULAR HEMOGLOBIN 31.3 pg (25.0-35.0); MEAN CORPUSCULAR HGB CONC 33.1 g/dl (31.0-37.0); MEAN PLATELET VOLUME 9.9 fl (7.0-11.0); MONO # 0.6 (0.1-0.6); MONO % 12.7 % (1.0-6.0); RBC 3.74 10^6/uL (3.5-6.1); RED CELL DISTRIBUTION WIDTH 14.8 % (11.5-14.5); WHITE BLOOD COUNT 4.5 10^3/uL (4.5-11.0)
[2018-06-19 07:40] LABS: ALB/GLOB RATIO 0.7 (1.1-1.8); ALBUMIN 2.8 g/dL (3.0-4.8); ALT/SGPT 28 U/L (7-56); AST/SGOT 117 U/L (17-59); BILIRUBIN,DIRECT 1.7 mg/dL (0.0-0.4); BLOOD UREA NITROGEN 4 mg/dL (7-21); CALCIUM 8.2 mg/dL (8.4-10.5); GFR NON-AFRICAN AMERICAN > 60
[2018-06-19] MEDS ORDERED: Potassium Chloride 40 mEq/30 ml LIQ UD PO ONE (08:23)
[2018-06-19] MEDS: Multivitamin With Minerals Tab PO SCH (09:58)
[2018-06-19] MEDS: Potassium Chloride 20 mEq ER Tab PO SCH ×2 (09:58→22:08)
[2018-06-19] MEDS: diltiaZEM 120 mg/24 Hours CD Cap PO SCH (09:59)
--- NOTE | 2018-06-19 14:45 | CP.PCM.PN ---
<Elver Delgadillo - Last Filed: 06/19/18 14:42> Subjective - Date & Time of Evaluation Date of Evaluation: 06/19/18 Time of Evaluation: 07:40 - Subjective Subjective: Elver Delgadillo D.O. PGY-3, Internal Medicine Resident, Infectious Disease Progress Note 57 year old male with a PMH of alcoholic hepatitis and cirrhosis, hiatal hernia, diverticulosis, hypertension, COPD, hypothyroidism, DM, polysubstance abuse who presented with complaints of dark stools and abdominal discomfort. Infectious disease consultation was requested for questionable SBP. Patient was seen and examined at bedside. Had a fall yesterday but doing ok now. No pain or discomfort. Objective - Vital Signs/Intake and Output Vital Signs (last 24 hours): Temp Pulse Resp BP Pulse Ox 98.8 F 83 18 104/66 95 06/19/18 06:00 06/19/18 09:59 06/19/18 06:00 06/19/18 09:59 06/19/18 06:00 - Medications Medications: Current Medications Acetylcysteine (Acetylcysteine 20%) 4 ml IH [id number] [facility] Last Admin: 06/19/18 14:00 Dose: Not Given Amoxicillin/Clavulanate Potassium (Augmentin 875 Mg-125 Mg Tab) 1 tab PO Q12 [facility]; Protocol Stop: 06/25/18 22:01 Chlordiazepoxide (Librium) 50 mg PO Q4H PRN PRN Reason: Symptoms of alcohol withdrawl Last Admin: 06/17/18 14:11 Dose: 50 mg Diltiazem HCl (Cardizem Cd) 120 mg PO DAILY [facility] Last Admin: 06/19/18 09:59 Dose: 120 mg Ergocalciferol (Drisdol 50,000 Intl Units Cap) 1 cap PO Q7D [facility] Last Admin: 06/17/18 09:07 Dose: 1 cap Folic Acid (Folic Acid) 1 mg PO DAILY [facility] Last Admin: 06/19/18 09:58 Dose: 1 mg Furosemide (Lasix) 40 mg IVP DAILY [facility] Last Admin: 06/19/18 09:59 Dose: 40 mg Levalbuterol HCl (Xopenex) 0.63 mg IH [id number] [facility] Last Admin: 06/19/18 14:00 Dose: Not Given Levothyroxine Sodium (Synthroid) 50 mcg PO 0600 [facility] Last Admin: 03/13/19 05:39 Dose: 50 mcg Multivitamins/Minerals (Therapeutic-M Tab) 1 tab PO DAILY [facility] Last Admin: 06/19/18 09:58 Dose: 1 tab Nicotine (Nicoderm Cq) 1 patch TD DAILY [facility] Last Admin: 06/19/18 10:00 Dose: 1 patch Ondansetron HCl (Zofran Inj) 4 mg IVP Q4H PRN PRN Reason: Nausea/Vomiting Last Admin: 06/17/18 11:38 Dose: 4 mg Pantoprazole Sodium (Protonix Ec Tab) 40 mg PO 0600 [facility] Last Admin: 06/19/18 05:39 Dose: 40 mg Potassium Chloride (K-Dur 20 Meq Er Tab) 20 meq PO Q12H [facility] Last Admin: 06/19/18 09:58 Dose: 20 meq Spironolactone (Aldactone) 50 mg PO TID [facility] Last Admin: 06/19/18 14:12 Dose: 50 mg Tamsulosin HCl (Flomax) 0.4 mg PO DAILY [facility] Last Admin: 06/19/18 09:58 Dose: 0.4 mg Thiamine HCl (Vitamin B1 Tab) 100 mg PO DAILY [facility] Last Admin: 06/19/18 09:58 Dose: 100 mg - Labs Labs: 06/19/18 06:30 06/19/18 06:30 PT 18.2 SECONDS (9.4-12.5) H 06/17/18 06:50 INR 1.61 06/17/18 06:50 APTT 37.4 Seconds (26.9-38.3) 06/17/18 06:50 - Constitutional Appears: Non-toxic, No Acute Distress - Head Exam Head Exam: ATRAUMATIC, NORMOCEPHALIC - Eye Exam Eye Exam: EOMI - ENT Exam ENT Exam: Mucous Membranes Moist - Neck Exam Neck exam: Positive for: Normal Inspection - Respiratory Exam Respiratory Exam: absent: Rales - Cardiovascular Exam Cardiovascular Exam: +S1, +S2 - GI/Abdominal Exam GI & Abdominal Exam: Distended, Soft. absent: Tenderness - Extremities Exam Extremities exam: Negative for: tenderness - Neurological Exam Neurological exam: Alert, Oriented x3 - Psychiatric Exam Psychiatric exam: Normal Affect, Normal Mood - Skin Skin Exam: Dry, Warm Assessment and Plan - Assessment and Plan (Free Text) Assessment: 57 year old male with a PMH of alcoholic hepatitis and cirrhosis, hiatal hernia, diverticulosis, hypertension, COPD, hypothyroidism, DM, polysubstance abuse who presented with complaints of dark stools and abdominal discomfort. Infectious disease consultation was requested for questionable SBP. Plan: Alcoholic cirrhosis, uncompensated with large ascites s/p IR paracentesis Concern for SBP Overall clinically improved Continues to be afebrile and having no leukocytosis or tachycardia We are treating empirically We will discontinue his Zosyn and switch him to Augmentin 875 mg p.o. twice daily for a total of 7 days Upon discharge, patient should be taking ciprofloxacin 750 mg weekly for prophylaxis Patient was seen and examined and case to be discussed with attending physician. Thank you for the pleasure of participating in the care of this interesting patient. <Koko Saha - Last Filed: 06/19/18 21:49> Objective - Vital Signs/Intake and Output Vital Signs (last 24 hours): Temp Pulse Resp BP Pulse Ox 98.3 F 78 20 116/76 96 06/19/18 14:00 06/19/18 14:00 06/19/18 14:00 06/19/18 14:00 06/19/18 14:00 Intake and Output: 06/19/18 06/20/18 18:59 06:59 Intake Total 480 600 Output Total 650 350 Balance -170 250 - Medications Medications: Current Medications Acetylcysteine (Acetylcysteine 20%) 4 ml IH [id number] [facility] Last Admin: 06/19/18 20:54 Dose: Not Given Albumin Human (Albumin Human 25% (12.5 Gm/50 Ml)) 12.5 gm IV Q8H DOC Stop: 06/20/18 13:31 Amoxicillin/Clavulanate Potassium (Augmentin 875 Mg-125 Mg Tab) 1 tab PO Q12 [facility]; Protocol Stop: 06/25/18 22:01 Baclofen (Lioresal) 10 mg PO TID [facility] Chlordiazepoxide (Librium) 50 mg PO Q4H PRN PRN Reason: Symptoms of alcohol withdrawl Last Admin: 06/17/18 14:11 Dose: 50 mg Diltiazem HCl (Cardizem Cd) 120 mg PO DAILY [facility] Last Admin: 06/19/18 09:59 Dose: 120 mg Ergocalciferol (Drisdol 50,000 Intl Units Cap) 1 cap PO Q7D [facility] Last Admin: 06/17/18 09:07 Dose: 1 cap Folic Acid (Folic Acid) 1 mg PO DAILY [facility] Last Admin: 06/19/18 09:58 Dose: 1 mg Furosemide (Lasix) 40 mg IVP DAILY [facility] Last Admin: 06/19/18 09:59 Dose: 40 mg Lactulose (Enulose) 20 gm PO HS [facility] Levalbuterol HCl (Xopenex) 0.63 mg IH [id number] [facility] Last Admin: 06/19/18 20:54 Dose: Not Given Levothyroxine Sodium (Synthroid) 50 mcg PO 0600 [facility] Last Admin: 06/19/18 05:39 Dose: 50 mcg Multivitamins/Minerals (Therapeutic-M Tab) 1 tab PO DAILY [facility] Last Admin: 06/19/18 09:58 Dose: 1 tab Nicotine (Nicoderm Cq) 1 patch TD DAILY [facility] Last Admin: 06/19/18 10:00 Dose: 1 patch Ondansetron HCl (Zofran Inj) 4 mg IVP Q4H PRN PRN Reason: Nausea/Vomiting Last Admin: 06/17/18 11:38 Dose: 4 mg Pantoprazole Sodium (Protonix Ec Tab) 40 mg PO 0600 [facility] Last Admin: 06/19/18 05:39 Dose: 40 mg Potassium Chloride (K-Dur 20 Meq Er Tab) 20 meq PO Q12H [facility] Last Admin: 06/19/18 09:58 Dose: 20 meq Spironolactone (Aldactone) 50 mg PO Q12 [facility] Tamsulosin HCl (Flomax) 0.4 mg PO DAILY [facility] Last Admin: 06/19/18 09:58 Dose: 0.4 mg Thiamine HCl (Vitamin B1 Tab) 100 mg PO DAILY [facility] Last Admin: 06/19/18 09:58 Dose: 100 mg - Labs Labs: 06/19/18 06:30 06/19/18 06:30 PT 18.2 SECONDS (9.4-12.5) H 06/17/18 06:50 INR 1.61 06/17/18 06:50 APTT 37.4 Seconds (26.9-38.3) 06/17/18 06:50 Attending/Attestation - Attestation I have personally seen and examined this patient.: Yes I have fully participated in the care of the patient.: Yes I have reviewed all pertinent clinical information, including history, physical exam and plan: Yes
--- NOTE | 2018-06-19 15:40 | CP.PCM.CON ---
History of Present Illness - History of Present Illness History of Present Illness: Hepatobiliary surgery consult note for Dr. Olivares Patient is a 57 yr old male with PMH alcoholic hepatitis and cirrhosis, hiatal hernia, diverticulosis, hypertension, COPD, hypothyroidism, T2DM, polysubstance abuse who was admitted for abdominal pain and dark stools. Patient has chronic ascites and has had multiple paracentesis in the past (most recent 06/17/18). Surgery was consulted for evaluation of hepatic cirrhosis. Patient endorses urinary incontinence x 6 months and is unsure of cause. patient otherwise denies any f/c, n/v, NEGRON, CP, SOB, n/v, f/c, diarrhea, dysuria, ongoing hematochezia or hematemesis. Endorses mild abdominal apin at paracentesis site. PMH: alcoholic hepatitis and cirrhosis, hiatal hernia, diverticulosis, hypertension, COPD, hypothyroidism, T2DM, polysubstance abuse PSH: cervical spine surgery, paracentesis SHx: 1-2 pints alcohol per day (most recent 2 weeks ago), 1 PPD for 30 years, marijuana use Allergies: NKDA PMD: Dr. Maya Review of Systems - Review of Systems All systems: reviewed and no additional remarkable complaints except (as per HPI) Past Patient History - Infectious Disease Hx of Infectious Diseases: None - Tetanus Immunizations Tetanus Immunization: Unknown - Past Medical History & Family History Past Medical History?: Yes - Past Social History Smoking Status: Heavy Smoker > 10 Cigarettes Daily Drugs: Cannabis - CARDIAC Hx Hypertension: Yes - PULMONARY Hx Chronic Obstructive Pulmonary Disease (COPD): Yes - NEUROLOGICAL HX Cerebrovascular Accident: No - HEENT Hx HEENT Problems: Yes (glasses) - RENAL Hx Renal Failure: No - ENDOCRINE/METABOLIC Hx Diabetes Mellitus Type 2: Yes - HEMATOLOGICAL/ONCOLOGICAL Hx Blood Transfusions: No Hx Blood Transfusion Reaction: No - INTEGUMENTARY Hx Dermatological Problems: No - MUSCULOSKELETAL/RHEUMATOLOGICAL Hx Arthritis: Yes - GASTROINTESTINAL Hx Gastrointestinal Disorders: (reflux/ hx ulcers) Other/Comment: ascitis - GENITOURINARY/GYNECOLOGICAL Hx Genitourinary Disorders: No - PSYCHIATRIC Hx Emotional Abuse: No Hx Physical Abuse: No Hx Substance Use: Yes (marijuna occasionally) - SURGICAL HISTORY Hx Musculoskeletal Surgery: Yes (RIGHT ANKLE W/ SCREW AND METAL PLATE 2 YRS AGO 2009?) Hx Orthopedic Surgery: No (Right knee sx and right ankle sx with pins and metal plate.) Other/Comment: HEMORRHOIDECTOMY 2012, pt denies r knee sx, hemorrhoidectomy 2012, cervical disk sx 03/2015 - ANESTHESIA Hx Anesthesia Reactions: No Hx Malignant Hyperthermia: No Meds Allergies/Adverse Reactions: Allergies Allergy/AdvReac Type Severity Reaction Status Date / Time No Known Allergies Allergy Verified 04/15/18 21:19 - Medications Medications: Current Medications Acetylcysteine (Acetylcysteine 20%) 4 ml IH [id number] [facility] Last Admin: 06/19/18 14:00 Dose: Not Given Amoxicillin/Clavulanate Potassium (Augmentin 875 Mg-125 Mg Tab) 1 tab PO Q12 [facility]; Protocol Stop: 06/25/18 22:01 Chlordiazepoxide (Librium) 50 mg PO Q4H PRN PRN Reason: Symptoms of alcohol withdrawl Last Admin: 06/17/18 14:11 Dose: 50 mg Diltiazem HCl (Cardizem Cd) 120 mg PO DAILY [facility] Last Admin: 06/19/18 09:59 Dose: 120 mg Ergocalciferol (Drisdol 50,000 Intl Units Cap) 1 cap PO Q7D [facility] Last Admin: 06/17/18 09:07 Dose: 1 cap Folic Acid (Folic Acid) 1 mg PO DAILY [facility] Last Admin: 06/19/18 09:58 Dose: 1 mg Furosemide (Lasix) 40 mg IVP DAILY [facility] Last Admin: 06/19/18 09:59 Dose: 40 mg Levalbuterol HCl (Xopenex) 0.63 mg IH [id number] [facility] Last Admin: 06/19/18 14:00 Dose: Not Given Levothyroxine Sodium (Synthroid) 50 mcg PO 0600 [facility] Last Admin: 06/19/18 05:39 Dose: 50 mcg Multivitamins/Minerals (Therapeutic-M Tab) 1 tab PO DAILY [facility] Last Admin: 06/19/18 09:58 Dose: 1 tab Nicotine (Nicoderm Cq) 1 patch TD DAILY [facility] Last Admin: 06/19/18 10:00 Dose: 1 patch Ondansetron HCl (Zofran Inj) 4 mg IVP Q4H PRN PRN Reason: Nausea/Vomiting Last Admin: 06/17/18 11:38 Dose: 4 mg Pantoprazole Sodium (Protonix Ec Tab) 40 mg PO 0600 [facility] Last Admin: 06/19/18 05:39 Dose: 40 mg Potassium Chloride (K-Dur 20 Meq Er Tab) 20 meq PO Q12H [facility] Last Admin: 06/19/18 09:58 Dose: 20 meq Spironolactone (Aldactone) 50 mg PO TID [facility] Last Admin: 06/19/18 14:12 Dose: 50 mg Tamsulosin HCl (Flomax) 0.4 mg PO DAILY [facility] Last Admin: 06/19/18 09:58 Dose: 0.4 mg Thiamine HCl (Vitamin B1 Tab) 100 mg PO DAILY [facility] Last Admin: 06/19/18 09:58 Dose: 100 mg Physical Exam - Constitutional Appears: Well, Non-toxic, No Acute Distress, Unkempt, Older Than Stated Age, Chronically Ill - Head Exam Head Exam: ATRAUMATIC, NORMOCEPHALIC - Eye Exam Eye Exam: EOMI, Scleral icterus - ENT Exam ENT Exam: Mucous Membranes Moist - Respiratory Exam Respiratory Exam: NORMAL BREATHING PATTERN - Cardiovascular Exam Cardiovascular Exam: REGULAR RHYTHM - GI/Abdominal Exam GI & Abdominal Exam: Distended (mild), Guarding (RLQ, near paracentesis site), Organomegaly, Soft, Tenderness (RLQ near paracentesis site) - Extremities Exam Extremities exam: Negative for: calf tenderness - Neurological Exam Neurological exam: Alert Additional comments: believes year is 2019, needed multiple choice for current president - Psychiatric Exam Psychiatric exam: Normal Affect, Normal Mood - Skin Skin Exam: Dry, Intact, Normal Color, Warm Additional comments: no overt jaundice of the skin Results - Vital Signs Recent Vital Signs: Last Vital Signs Temp 98.3 F 06/19/18 14:00 Pulse 78 06/19/18 14:00 Resp 20 06/19/18 14:00 BP 116/76 06/19/18 14:00 Pulse Ox 96 06/19/18 14:00 - Labs Result Diagrams: 06/19/18 06:30 06/19/18 06:30 Labs: Laboratory Results - last 24 hr 06/19/18 06/19/18 06:30 06:30 WBC 4.5 RBC 3.74 Hgb 11.7 L Hct 35.4 L MCV 94.7 MCH 31.3 MCHC 33.1 RDW 14.8 H Plt Count 90 L Manual Plt Count 116 L MPV 9.9 Neut % (Auto) 55.7 Lymph % (Auto) 25.4 [place] % (Auto) 12.7 H Eos % (Auto) 5.3 H Baso % (Auto) 0.9 Lymph # (Auto) 1.1 L [place] # (Auto) 0.6 Eos # (Auto) 0.2 Baso # (Auto) 0.04 Absolute Neuts (auto) 2.50 Sodium 135 Potassium 3.5 L Chloride 99 Carbon Dioxide 28 Anion Gap 11 BUN 4 L Creatinine 0.8 Est GFR ( Amer) > 60 Est GFR (Non-Af Amer) > 60 Random Glucose 89 Calcium 8.2 L Phosphorus 4.3 Magnesium 2.1 Total Bilirubin 2.7 H Direct Bilirubin 1.7 H AST 117 H ALT 28 Alkaline Phosphatase 180 H Total Protein 6.6 Albumin 2.8 L Globulin 3.8 Albumin/Globulin Ratio 0.7 L Assessment & Plan - Assessment and Plan (Free Text) Assessment: 57 M with PMH of alcoholic hepatitis with chronic ascites, surgery was consulted for evaluation of hepatic cirrhosis Plan: - MELD 18, Jeff Zavala Class B patient may need referral in the future, will depend on ETOH abstinence - recommend ETOH abstinence - recommend smoking cessation - agree with Lactulose and SBP prophylaxis - recommend D/c saline containing fluids and salt restriction - recommend Albumin 25% 1-1.5 gm/ kg, or 10 gm per Liter Ascites removed - recommend decrease spironolactone to once daily - recommend [address] for appropriate liver cancer eval - patient should be screened every 6 months for evaluation of Liver pathology - recommend urology consult for cause of incontinence - further recommendations per Dr. Ragland, PGY 1 - Date & Time Date: 06/19/18 Time: 14:45
--- NOTE | 2018-06-19 16:32 | CP.PCM.CON ---
History of Present Illness - History of Present Illness History of Present Illness: 57 year old male history of ETOH abuse with Laennec's cirrhosis admitted for possible GI bleed. Post paracentesis 6 liters. Mild encephalopathy. Hgb has been stable since admission. Patient on diuretics spironolactone 50 mg TID, furo semide 40 qd. MELD 18. Review of Systems - Constitutional Constitutional: Fatigue, Malaise - EENT Additional comments: mildly icteric - Gastrointestinal Additional comments: soft, moderate ascites, non-tender - Integumentary Additional comments: no spider nevi - Psychiatric Psychiatric: Depression Additional comments: mild encephalopathy Past Patient History - Infectious Disease Hx of Infectious Diseases: None - Tetanus Immunizations Tetanus Immunization: Unknown - Past Medical History & Family History Past Medical History?: Yes - Past Social History Smoking Status: 30 pk-year Drugs: Cannabis - CARDIAC Hx Hypertension: Yes - PULMONARY Hx Chronic Obstructive Pulmonary Disease (COPD): Yes - NEUROLOGICAL HX Cerebrovascular Accident: No - HEENT Hx HEENT Problems: Yes (glasses) - RENAL Hx Renal Failure: No - ENDOCRINE/METABOLIC Hx Diabetes Mellitus Type 2: Yes - HEMATOLOGICAL/ONCOLOGICAL Hx Blood Transfusions: No Hx Blood Transfusion Reaction: No - INTEGUMENTARY Hx Dermatological Problems: No - MUSCULOSKELETAL/RHEUMATOLOGICAL Hx Arthritis: Yes - GASTROINTESTINAL Hx Gastrointestinal Disorders: (reflux/ hx ulcers) Other/Comment: ascitis - GENITOURINARY/GYNECOLOGICAL Hx Genitourinary Disorders: No - PSYCHIATRIC Hx Emotional Abuse: No Hx Physical Abuse: No Hx Substance Use: Yes (marijuna occasionally) - SURGICAL HISTORY Hx Musculoskeletal Surgery: Yes (RIGHT ANKLE W/ SCREW AND METAL PLATE 2 YRS AGO 2009?) Hx Orthopedic Surgery: No (Right knee sx and right ankle sx with pins and metal plate.) Other/Comment: HEMORRHOIDECTOMY 2012, pt denies r knee sx, hemorrhoidectomy 2012, cervical disk sx 03/2015 - ANESTHESIA Hx Anesthesia Reactions: No Hx Malignant Hyperthermia: No Meds Allergies/Adverse Reactions: Allergies Allergy/AdvReac Type Severity Reaction Status Date / Time No Known Allergies Allergy Verified 04/15/18 21:19 - Medications Medications: Current Medications Acetylcysteine (Acetylcysteine 20%) 4 ml IH [id number] [facility] Last Admin: 06/19/18 07:25 Dose: 4 ml Chlordiazepoxide (Librium) 50 mg PO Q4H PRN PRN Reason: Symptoms of alcohol withdrawl Last Admin: 06/17/18 14:11 Dose: 50 mg Diltiazem HCl (Cardizem Cd) 120 mg PO DAILY [facility] Last Admin: 06/19/18 09:59 Dose: 120 mg Ergocalciferol (Drisdol 50,000 Intl Units Cap) 1 cap PO Q7D [facility] Last Admin: 06/17/18 09:07 Dose: 1 cap Folic Acid (Folic Acid) 1 mg PO DAILY [facility] Last Admin: 06/19/18 09:58 Dose: 1 mg Furosemide (Lasix) 40 mg IVP DAILY [facility] Last Admin: 06/19/18 09:59 Dose: 40 mg Piperacillin Sod/Tazobactam Sod (Zosyn 3.375 In Ns 100ml) 100 mls @ 25 mls/hr IVPB Q8 [facility]; Protocol Stop: 06/21/18 01:59 Last Admin: 06/19/18 05:40 Dose: 25 mls/hr Levalbuterol HCl (Xopenex) 0.63 mg IH [id number] [facility] Last Admin: 06/19/18 07:25 Dose: 0.63 mg Levothyroxine Sodium (Synthroid) 50 mcg PO 0600 [facility] Last Admin: 06/19/18 05:39 Dose: 50 mcg Multivitamins/Minerals (Therapeutic-M Tab) 1 tab PO DAILY [facility] Last Admin: 06/19/18 09:58 Dose: 1 tab Nicotine (Nicoderm Cq) 1 patch TD DAILY [facility] Last Admin: 06/19/18 10:00 Dose: 1 patch Ondansetron HCl (Zofran Inj) 4 mg IVP Q4H PRN PRN Reason: Nausea/Vomiting Last Admin: 06/17/18 11:38 Dose: 4 mg Pantoprazole Sodium (Protonix Ec Tab) 40 mg PO 0600 [facility] Last Admin: 06/19/18 05:39 Dose: 40 mg Potassium Chloride (K-Dur 20 Meq Er Tab) 20 meq PO Q12H [facility] Last Admin: 06/19/18 09:58 Dose: 20 meq Spironolactone (Aldactone) 50 mg PO TID [facility] Last Admin: 06/19/18 09:59 Dose: 50 mg Tamsulosin HCl (Flomax) 0.4 mg PO DAILY [facility] Last Admin: 06/19/18 09:58 Dose: 0.4 mg Thiamine HCl (Vitamin B1 Tab) 100 mg PO DAILY [facility] Last Admin: 06/19/18 09:58 Dose: 100 mg Physical Exam - Constitutional Appears: Chronically Ill - Head Exam Head Exam: ATRAUMATIC, NORMOCEPHALIC - Eye Exam Eye Exam: Scleral icterus - ENT Exam Additional comments: poor dentition - Respiratory Exam Respiratory Exam: Clear to Auscultation Bilateral - Cardiovascular Exam Cardiovascular Exam: REGULAR RHYTHM - GI/Abdominal Exam GI & Abdominal Exam: Normal Bowel Sounds, Soft Additional comments: moderate ascites - Rectal Exam Rectal Exam: Deferred - Extremities Exam Additional comments: no pedal edema - Neurological Exam Additional comments: mild encephalopathy - Psychiatric Exam Psychiatric exam: Depressed Results - Vital Signs Recent Vital Signs: Last Vital Signs Temp 98.8 F 06/19/18 06:00 Pulse 83 06/19/18 09:59 Resp 18 06/19/18 06:00 BP 104/66 06/19/18 09:59 Pulse Ox 95 06/19/18 06:00 - Labs Result Diagrams: 06/19/18 06:30 06/19/18 06:30 Labs: Laboratory Results - last 24 hr 06/19/18 06/19/18 06:30 06:30 WBC 4.5 RBC 3.74 Hgb 11.7 L Hct 35.4 L MCV 94.7 MCH 31.3 MCHC 33.1 RDW 14.8 H Plt Count 90 L Manual Plt Count 116 L MPV 9.9 Neut % (Auto) 55.7 Lymph % (Auto) 25.4 [place] % (Auto) 12.7 H Eos % (Auto) 5.3 H Baso % (Auto) 0.9 Lymph # (Auto) 1.1 L [place] # (Auto) 0.6 Eos # (Auto) 0.2 Baso # (Auto) 0.04 Absolute Neuts (auto) 2.50 Sodium 135 Potassium 3.5 L Chloride 99 Carbon Dioxide 28 Anion Gap 11 BUN 4 L Creatinine 0.8 Est GFR ( Amer) > 60 Est GFR (Non-Af Amer) > 60 Random Glucose 89 Calcium 8.2 L Phosphorus 4.3 Magnesium 2.1 Total Bilirubin 2.7 H Direct Bilirubin 1.7 H AST 117 H ALT 28 Alkaline Phosphatase 180 H Total Protein 6.6 Albumin 2.8 L Globulin 3.8 Albumin/Globulin Ratio 0.7 L - Imaging and Cardiology CT scan - abdomen Additional comment: non-contrast CT-not useful Assessment & Plan (1) Cirrhosis Assessment and Plan: Laennec's cirrhosis, last use of alcohol a week ago. Needs liver cancer surveillance. Imaging inadequate to assess for liver cancer; would give albumin then, obtain 4 phase CAT scan liver and abdomen. Status: Chronic (2) Ascites Assessment and Plan: He should be on salt restriction. Would discontinue normal saline. Consider albumin 25% solution, 1-1.5 gm per kilo per day, or 10 gm per liter ascites removed. Consider changing diuretics to spironolactone 100 PO qd, furosemide 40 mg PO qd Status: Acute (3) Encephalopathy Assessment and Plan: Patient appears depressed and encephaloapthic. Might benefit from 30 cc lactulose once or twice a day. Also consider psych for treatment of depression. Status: Acute (4) Alcohol abuse Assessment and Plan: Consider baclofen to reduce urge to drink. Recommend psych consult Status: Acute - Assessment and Plan (Free Text) Assessment: Laennec's cirrhosis, last use a week ago. Patient appears depressed and encephaloapthic. Might benefit from lactulose once or twice a day. Consider baclofen to reduce urge to drink. Also consider psych for treatemtn of depress ion. As far as ascites, he should be on salt restriction. Would not use normal saline. Consider albumin 25% solution, 1-1.5 gm per kilo per day, or 10 gm per liter ascites removed. Imaging inadequate to assess for liver cancer. would give albumin then, obtain 4 phase CAT scan liver and abdomen.
[2018-06-19 16:51] LABS: BARBITURATES, UR NEGATIVE (NEGATIVE); BENZODIAZEPINES, UR POSITIVE (NEGATIVE); OPIATES, UR NEGATIVE (NEGATIVE); PHENCYCLIDINE, UR NEGATIVE (NEGATIVE)
--- NOTE | 2018-06-19 20:42 | CP.PCM.PN ---
Subjective - Date & Time of Evaluation Date of Evaluation: 06/19/18 Time of Evaluation: 09:00 - Subjective Subjective: Medicine progress note (Dr. Maya) - Maris PGY - 2 Patient seen and examined at bedside. Patient moved to [facility] surg overnight; CIWA 1. No ascitic fluid sent for analysis; 6.7L taken off Objective - Vital Signs/Intake and Output Vital Signs (last 24 hours): Temp Pulse Resp BP Pulse Ox 98.3 F 78 20 116/76 96 06/19/18 14:00 06/19/18 14:00 06/19/18 14:00 06/19/18 14:00 06/19/18 14:00 Intake and Output: 06/19/18 06/20/18 18:59 06:59 Intake Total 480 Output Total 650 Balance -170 - Medications Medications: Current Medications Acetylcysteine (Acetylcysteine 20%) 4 ml IH [id number] [facility] Last Admin: 06/19/18 14:00 Dose: Not Given Amoxicillin/Clavulanate Potassium (Augmentin 875 Mg-125 Mg Tab) 1 tab PO Q12 [facility]; Protocol Stop: 06/25/18 22:01 Chlordiazepoxide (Librium) 50 mg PO Q4H PRN PRN Reason: Symptoms of alcohol withdrawl Last Admin: 06/17/18 14:11 Dose: 50 mg Diltiazem HCl (Cardizem Cd) 120 mg PO DAILY [facility] Last Admin: 06/19/18 09:59 Dose: 120 mg Ergocalciferol (Drisdol 50,000 Intl Units Cap) 1 cap PO Q7D [facility] Last Admin: 06/17/18 09:07 Dose: 1 cap Folic Acid (Folic Acid) 1 mg PO DAILY [facility] Last Admin: 06/19/18 09:58 Dose: 1 mg Furosemide (Lasix) 40 mg IVP DAILY [facility] Last Admin: 06/19/18 09:59 Dose: 40 mg Levalbuterol HCl (Xopenex) 0.63 mg IH [id number] [facility] Last Admin: 06/19/18 14:00 Dose: Not Given Levothyroxine Sodium (Synthroid) 50 mcg PO 0600 [facility] Last Admin: 06/19/18 05:39 Dose: 50 mcg Multivitamins/Minerals (Therapeutic-M Tab) 1 tab PO DAILY [facility] Last Admin: 06/19/18 09:58 Dose: 1 tab Nicotine (Nicoderm Cq) 1 patch TD DAILY [facility] Last Admin: 06/19/18 10:00 Dose: 1 patch Ondansetron HCl (Zofran Inj) 4 mg IVP Q4H PRN PRN Reason: Nausea/Vomiting Last Admin: 06/17/18 11:38 Dose: 4 mg Pantoprazole Sodium (Protonix Ec Tab) 40 mg PO 0600 [facility] Last Admin: 06/19/18 05:39 Dose: 40 mg Potassium Chloride (K-Dur 20 Meq Er Tab) 20 meq PO Q12H [facility] Last Admin: 06/19/18 09:58 Dose: 20 meq Spironolactone (Aldactone) 50 mg PO TID [facility] Last Admin: 06/19/18 17:01 Dose: 50 mg Tamsulosin HCl (Flomax) 0.4 mg PO DAILY [facility] Last Admin: 06/19/18 09:58 Dose: 0.4 mg Thiamine HCl (Vitamin B1 Tab) 100 mg PO DAILY [facility] Last Admin: 06/19/18 09:58 Dose: 100 mg - Labs Labs: 06/19/18 06:30 06/19/18 06:30 PT 18.2 SECONDS (9.4-12.5) H 06/17/18 06:50 INR 1.61 06/17/18 06:50 APTT 37.4 Seconds (26.9-38.3) 06/17/18 06:50 - Constitutional Appears: Well - Head Exam Head Exam: ATRAUMATIC, NORMAL INSPECTION, NORMOCEPHALIC - Eye Exam Eye Exam: EOMI, Normal appearance, PERRL Pupil Exam: NORMAL ACCOMODATION, PERRL - ENT Exam ENT Exam: Mucous Membranes Moist, Normal Exam - Neck Exam Neck Exam: Full ROM, Normal Inspection. absent: Lymphadenopathy - Respiratory Exam Respiratory Exam: Clear to Ausculation Bilateral, NORMAL BREATHING PATTERN - Cardiovascular Exam Cardiovascular Exam: REGULAR RHYTHM, +S1, +S2. absent: Murmur - GI/Abdominal Exam GI & Abdominal Exam: Soft, Normal Bowel Sounds. absent: Tenderness - Extremities Exam Extremities Exam: Full ROM, Normal Capillary Refill, Normal Inspection. absent: Joint Swelling, Pedal Edema - Back Exam Back Exam: NORMAL INSPECTION - Neurological Exam Neurological Exam: Alert, Awake, CN II-XII Intact, Normal Gait, Oriented x3 - Psychiatric Exam Psychiatric exam: Normal Affect, Normal Mood - Skin Skin Exam: Dry, Intact, Normal Color, Warm Assessment and Plan - Assessment and Plan (Free Text) Assessment: Patient is a 57 year old male with past medical history of alcoholic hepatitis and cirrhosis, hiatal hernia, diverticulosis, hypertension, COPD, hypothyroidism, T2DM, polysubstance abuse presenting with chief complaint of dark stools and abdominal discomfort. Plan: Dark stools/abdominal pain Afebrile, no leukocytosis; H/H stable - Zosyn q8h; Zofran; NS @ 100 - GI consulted: Agrees with PPI q12 Pancytopenia, likely 2/2 Infection VS Medication VS Alcohol Abuse - Resolved - Continue to monitor Ascites - IR consulted - Continue with diuresis (aldactone) Alcohol withdrawal - Resolved Last CIWA was 1 - D/c Tele - CIWA protocol, aspiriation, seizure precautions - Multivitamin/thimaine/folic acid daily Hypokalemia/Hypomagnesemia/Hypophosphatemia - Replenished - Continue to monitor Polysubstance abuse - Nicotine patch - Cessation counseling PPX - Protonix and SCDs
[2018-06-19] MEDS: Amoxicillin-Clav 875-125 mg Tab PO SCH (22:08)
[2018-06-19] MEDS: Albumin Human 25% (12.5 gm/50 ml) IV SCH (22:08)
--- NOTE | 2018-06-20 00:51 | PN ---
DATE: 06/19/2018 SUBJECTIVE: The patient is seen sitting up in the bed in room 562, bed 2. The patient is alert, awake, responsive. Yesterday, the patient had a Code Star that was called yesterday by the nurses when the patient was trying to get up from the bed to use the urinal and felt dizzy and he stood up and then fell onto the ground on his buttocks without hitting his head and without injuring any body part. The patient was evaluated by the medical surgical tech. Today, the patient is without any complaints. The patient is seen sitting up in the bed. PHYSICAL EXAMINATION VITAL SIGNS: T-max is 98.8, heart rate 83, 78, 81, blood pressure 116/76, 104/66, respiration 18, O2 sat 95% to 96%. HEENT: Head, normocephalic, atraumatic. HEENT examination shows pinkish conjunctivae, icteric sclerae. No oropharyngeal lesion. NECK: No neck rigidity. CHEST: Kyphosis. CARDIOPULMONARY: Heart shows S1, S2, regular rhythm. LUNGS: Shows no audible crackle, rales or wheezing. Occasional rhonchi in anterior lung field. ABDOMEN: Less protuberant but distended. No palpable hepatosplenomegaly. GENITALIA: Male. RECTAL: Deferred. EXTREMITIES: Shows no pitting edema, no calf tenderness, no Homans' sign. NEUROLOGIC: The patient is alert, awake, responsive, is able to move upper and lower extremity without assistance. Gait examination is not tested. Cranial nerves II through XII intact. VASCULAR: Palpable pulses. MUSCULOSKELETAL: Shows a body mass index of 29.9. LABORATORY DATA: 06/19/2018; WBC 4.5, hemoglobin/hematocrit 11.7 and 35.4, platelet 116,000 manual. Chemistry significant for potassium of 3.5. Rest of the basic metabolic panel normal. Calcium 8.2, phosphorus 4.3, magnesium 2.1, total bili 2.7, bili 1.7, AST 170, ALT 28, alk phos 180, ammonia 24, albumin 2.8. Urine drug screen positive for benzodiazepines. Urine culture, blood cultures negative. CURRENT MEDICATIONS: Mucomyst nebulizer 4 ml every 6 hours at 20%, albumin 12.5 g IV every 8 hours x3 doses, Aldactone 50 mg p.o. every 12 hours, Augmentin 875 mg twice a day, Cardizem CD 120 mg daily, Drisdol 50,000 IU weekly, lactulose 20 g at bedtime, Flomax 0.4 mg daily, folic acid 1 mg daily, K-Dur 20 mEq twice a day, Lasix 40 mg IV daily, Librium 50 mg p.o. every 4 hours p.r.n., baclofen 10 mg three times a day, magnesium sulfate riders has been ordered, nicotine patch has been ordered. The patient is given a supplemental dose of potassium 40 mEq. The patient was given Protonix 40 mg daily, Synthroid 50 mcg daily, thiamine 100 mg daily, Xopenex nebulizer, Zofran 4 mg IV every 4 hours. The patient was seen by the Hepatology service, Dr. Mari, their recommendations are noted. The patient was seen by Infectious Disease. IMPRESSION 1. Questionable gastrointestinal bleeding with anemia. 2. Status post Code Star. 3. Hypotension. 4. Leukopenia. 5. Anemia. 6. Thrombocytopenia. 7. Pancytopenia. 8. Coagulopathy. 9. Hyponatremia. 10. Increased anion gap metabolic acidosis (resolved). 11. Hypokalemia, hypophosphatemia, hypomagnesemia. 12. Hyperbilirubinemia. 13. Transaminitis. 14. Mild hypoalbuminemia. 15. Proteinuria, microscopic hematuria, pyuria, bilirubinuria, bacteriuria. 16. Massive ascites. 17. Alcoholic hepatitis and alcoholic cirrhosis. 18. Pyuria, bacteriuria, microscopic hematuria, proteinuria, bilirubinuria. 19. Status post large-volume paracentesis of almost 7 liters. 20. Hepatic cirrhosis with massive ascites. 21. Left inguinal hernia. 22. Umbilical hernia. 23. Decompensated cirrhosis. 24. Advanced hepatic cirrhosis. 25. Extensive ascites. 26. Bibasilar atelectasis and crowded bronchovascular markings secondary to poor inspiration. 27. Sinus tachycardia. 28. Active nicotine, alcohol and polysubstance abuse and dependence. 29. Deconditioning. 30. Gait dysfunction. 31. Alcoholic hepatitis and alcoholic cirrhosis. 32. Laennec cirrhosis. 33. Mild hepatic encephalopathy. 34. Hepatic cirrhosis. 35. Alcohol abuse. 36. Questionable depression. 1. Questionable melena with questionable gastrointestinal bleeding. 2. Anemia. 3. Thrombocytopenia. 4. Coagulopathy. 5. Advanced alcoholic hepatic cirrhosis. 6. Hyperbilirubinemia. 7. Transaminitis. 8. Massive ascites. 9. Status post large volume paracentesis with removal of 6.7 liters of ascites fluid. 10. Alcoholic cirrhosis and alcoholic hepatitis. 11. Questionable subacute bacterial peritonitis. 12. Alcoholism 13. Increased anion gap metabolic acidosis. 14. Hypokalemia. 15. Proteinuria, ketonuria, microscopic hematuria, pyuria, bacteriuria. 16. Questionable ascending colon, cecal, and colonic colitis. 17. Poor compliance. 18. Active nicotine, alcohol, and polysubstance abuse and dependence. 19. Impending alcohol withdrawal. 20. Tachycardia. 1. Questionable and possible gastrointestinal bleed with melena. 2 Tachycardia. 3. Anemia. 4. Thrombocytopenia. 5. Questionable coagulopathy secondary to alcoholic cirrhosis. 6. Increased anion gap metabolic acidosis. 7. Hypokalemia. 8. Severe transaminitis with hyperbilirubinemia. 9. Proteinuria. 10. Ketonuria. 11. Hematuria. 12. Pyuria, bacteriuria. 13. Severe hepatic cirrhosis. 14. Worsening abdominal ascites. 15. Diffuse colitis, predominantly involving ascending colon and cecum. 16. Active alcohol abuse and polysubstance abuse and nicotine dependence. 17. Noncompliance and poor compliance. PLAN: At this time, the patient has been ordered repeat labs. Current consultation Gastroenterology, Infectious Disease, Interventional Radiology, Hepatology, Psychiatry. The patient was seen by Physical Therapy, subacute rehab recommended, the patient refused subacute rehab. The patient will be considered for discharge soon after cleared by all the subspecialty. The patient has been counseled on a daily basis about cessation of smoking, alcohol and drug use, which he has acknowledged understood on multiple times. The patient has been advised about the risk and consequences of his medical condition, which he acknowledges and understands. The patient has been advised about the consequences of drinking alcohol and consequences of liver failure and end-stage cirrhosis, etc., which he acknowledges and understands. All questions and concerns answered. The patient has been updated about his condition, diagnosis. All risks and consequences explained to the patient. The patient understands all the risks and consequences of his continued drinking and risk and consequences of liver failure. The patient also understands if he does not comply he may . The patient has been explained about the risk and consequences of continued alcohol drinking, smoking, and polysubstance abuse. He has acknowledged and understood that continuation of all of the above habits may compromise his life and even end up in , which he completely acknowledges and understands. Dictated and electronically signed, not read. Rai Maya MD [facility]
[2018-06-20] MEDS: Acetylcysteine 20% Inhal Soln (4ml) IH SCH ×3 (02:23→14:06)
[2018-06-20] MEDS: Levalbuterol 0.63 MG/3 ML Inhal Soln UD IH SCH ×3 (02:23→14:06)
[2018-06-20] MEDS: Albumin Human 25% (12.5 gm/50 ml) IV SCH ×2 (05:58→13:32)
[2018-06-20] MEDS: Levothyroxine 50 MCG TAB PO SCH (05:59)
[2018-06-20] MEDS: Pantoprazole 40 mg EC Tab PO SCH (05:59)
[2018-06-20 07:06] LABS: BASO # 0.07 K/mm3 (0.0-2.0); BASO % 1.5 % (0.0-3.0); EOS # 0.3 (0.0-0.7); EOS % 5.2 % (1.5-5.0); HEMOGLOBIN 11.3 g/dL (14.0-18.0); LYMPH # 1.4 (1.2-3.4); LYMPH % 28.6 % (22.0-35.0); MEAN CELL VOLUME 95.5 fl (80.0-105.0); MEAN CORPUSCULAR HEMOGLOBIN 31.6 pg (25.0-35.0); MEAN PLATELET VOLUME 9.8 fl (7.0-11.0); MONO # 0.8 (0.1-0.6); MONO % 16.8 % (1.0-6.0); RBC 3.58 10^6/uL (3.5-6.1); RED CELL DISTRIBUTION WIDTH 15.4 % (11.5-14.5); WHITE BLOOD COUNT 4.8 10^3/uL (4.5-11.0)
[2018-06-20 07:13] LABS: ALB/GLOB RATIO 0.8 (1.1-1.8); ALT/SGPT 28 U/L (7-56); AST/SGOT 99 U/L (17-59); BILIRUBIN,DIRECT 1.4 mg/dL (0.0-0.4); BLOOD UREA NITROGEN 5 mg/dL (7-21); CALCIUM 8.6 mg/dL (8.4-10.5); GFR NON-AFRICAN AMERICAN > 60
[2018-06-20] MEDS ORDERED: Magnesium Sulfate 1 gm in D5W 1 GM/100 ML BAG IVPB ONE (08:01)
--- NOTE | 2018-06-20 08:21 | CP.PCM.PN ---
Subjective - Date & Time of Evaluation Date of Evaluation: 06/20/18 Time of Evaluation: 08:20 - Subjective Subjective: Medicine progress note (Dr. Maya) - Maris, PGY -2 Patient seen and examined at bedside. No acute overnight events. Patient denies any acute complaints; dark stools have resolved Objective - Vital Signs/Intake and Output Vital Signs (last 24 hours): Temp Pulse Resp BP Pulse Ox 97.7 F 68 18 99/63 L 97 06/20/18 06:00 06/20/18 06:00 06/20/18 06:00 06/20/18 06:00 06/20/18 06:00 Intake and Output: 06/20/18 06/20/18 06:59 18:59 Intake Total 940 Output Total 550 Balance 390 - Medications Medications: Current Medications Acetylcysteine (Acetylcysteine 20%) 4 ml IH [id number] [facility] Last Admin: 06/20/18 07:37 Dose: Not Given Albumin Human (Albumin Human 25% (12.5 Gm/50 Ml)) 12.5 gm IV Q8H DOC Stop: 06/20/18 13:31 Last Admin: 06/20/18 05:58 Dose: 12.5 gm Amoxicillin/Clavulanate Potassium (Augmentin 875 Mg-125 Mg Tab) 1 tab PO Q12 [facility]; Protocol Stop: 06/25/18 22:01 Last Admin: 06/19/18 22:08 Dose: 1 tab Baclofen (Lioresal) 10 mg PO TID [facility] Chlordiazepoxide (Librium) 50 mg PO Q4H PRN PRN Reason: Symptoms of alcohol withdrawl Last Admin: 06/17/18 14:11 Dose: 50 mg Diltiazem HCl (Cardizem Cd) 120 mg PO DAILY [facility] Last Admin: 06/19/18 09:59 Dose: 120 mg Ergocalciferol (Drisdol 50,000 Intl Units Cap) 1 cap PO Q7D [facility] Last Admin: 06/17/18 09:07 Dose: 1 cap Folic Acid (Folic Acid) 1 mg PO DAILY [facility] Last Admin: 06/19/18 09:58 Dose: 1 mg Furosemide (Lasix) 40 mg IVP DAILY [facility] Last Admin: 06/19/18 09:59 Dose: 40 mg Magnesium Sulfate/Dextrose (Magnesium Sulfate 1 Gm/100 Ml D5w) 1 gm in 100 mls @ 100 mls/hr IVPB ONCE ONE Stop: 06/20/18 09:00 Lactulose (Enulose) 20 gm PO HS [facility] Last Admin: 06/19/18 22:08 Dose: 20 gm Levalbuterol HCl (Xopenex) 0.63 mg IH [id number] [facility] Last Admin: 06/20/18 07:37 Dose: Not Given Levothyroxine Sodium (Synthroid) 50 mcg PO 0600 [facility] Last Admin: 06/20/18 05:59 Dose: 50 mcg Multivitamins/Minerals (Therapeutic-M Tab) 1 tab PO DAILY [facility] Last Admin: 06/19/18 09:58 Dose: 1 tab Nicotine (Nicoderm Cq) 1 patch TD DAILY [facility] Last Admin: 06/19/18 10:00 Dose: 1 patch Ondansetron HCl (Zofran Inj) 4 mg IVP Q4H PRN PRN Reason: Nausea/Vomiting Last Admin: 06/17/18 11:38 Dose: 4 mg Pantoprazole Sodium (Protonix Ec Tab) 40 mg PO 0600 [facility] Last Admin: 06/20/18 05:59 Dose: 40 mg Potassium Chloride (K-Dur 20 Meq Er Tab) 20 meq PO Q12H [facility] Last Admin: 06/19/18 22:08 Dose: 20 meq Spironolactone (Aldactone) 50 mg PO Q12 [facility] Tamsulosin HCl (Flomax) 0.4 mg PO DAILY [facility] Last Admin: 06/19/18 09:58 Dose: 0.4 mg Thiamine HCl (Vitamin B1 Tab) 100 mg PO DAILY [facility] Last Admin: 06/19/18 09:58 Dose: 100 mg - Labs Labs: 06/20/18 06:30 06/20/18 06:30 PT 18.2 SECONDS (9.4-12.5) H 06/17/18 06:50 INR 1.61 06/17/18 06:50 APTT 37.4 Seconds (26.9-38.3) 06/17/18 06:50 - Constitutional Appears: Well - Head Exam Head Exam: ATRAUMATIC, NORMAL INSPECTION, NORMOCEPHALIC - Eye Exam Eye Exam: EOMI, Normal appearance, PERRL Pupil Exam: NORMAL ACCOMODATION, PERRL - ENT Exam ENT Exam: Mucous Membranes Moist, Normal Exam - Neck Exam Neck Exam: Full ROM, Normal Inspection. absent: Lymphadenopathy - Respiratory Exam Respiratory Exam: Clear to Ausculation Bilateral, NORMAL BREATHING PATTERN - Cardiovascular Exam Cardiovascular Exam: REGULAR RHYTHM, +S1, +S2. absent: Murmur - GI/Abdominal Exam GI & Abdominal Exam: Soft, Normal Bowel Sounds. absent: Tenderness - Extremities Exam Extremities Exam: Full ROM, Normal Capillary Refill, Normal Inspection. absent: Joint Swelling, Pedal Edema - Back Exam Back Exam: NORMAL INSPECTION - Neurological Exam Neurological Exam: Alert, Awake, CN II-XII Intact, Normal Gait, Oriented x3 - Psychiatric Exam Psychiatric exam: Normal Affect, Normal Mood - Skin Skin Exam: Dry, Intact, Normal Color, Warm Assessment and Plan - Assessment and Plan (Free Text) Assessment: Patient is a 57 year old male with past medical history of alcoholic hepatitis and cirrhosis, hiatal hernia, diverticulosis, hypertension, COPD, hypothyroidism, T2DM, polysubstance abuse presenting with chief complaint of dark stools and abdominal discomfort. Plan: Dark stools/abdominal pain Afebrile, no leukocytosis; H/H stable - Per ID: switched to Augmentin 875 po BID; d/c on Cipro 750 weekly; per GI, agrees cont ppi Hepatic Cirrhosis - Hepatobiliary Consult Agree with lactulose and SBP PPX; rec albumin 1-1.5 gm/kg or 10 gm per L ascites removed; decrease aldactone to once daily; [address] for hepatic CA eval Pancytopenia, likely 2/2 Infection VS Medication VS Alcohol Abuse - Resolved - Continue to monitor Ascites - IR consulted - Continue with diuresis (aldactone) Alcohol withdrawal - Resolved Last CIWA was 1 - D/c Tele - CIWA protocol, aspiriation, seizure precautions - Multivitamin/thimaine/folic acid daily Hypokalemia/Hypomagnesemia/Hypophosphatemia - Replenished - Continue to monitor Polysubstance abuse - Nicotine patch - Cessation counseling PPX - Protonix and SCDs
[2018-06-20] MEDS: diltiaZEM 120 mg/24 Hours CD Cap PO SCH (10:30)
[2018-06-20] MEDS: Amoxicillin-Clav 875-125 mg Tab PO SCH ×2 (10:30→17:45)
[2018-06-20] MEDS: Potassium Chloride 20 mEq ER Tab PO SCH (10:31)
[2018-06-20] MEDS: Multivitamin With Minerals Tab PO SCH (10:31)
--- NOTE | 2018-06-20 10:58 | PN ---
DATE: 06/20/2018 SUBJECTIVE: The patient is in room 562, bed 2. Overnight nurse's notes were reviewed. No adverse events were noted. The patient denies any chest pain or shortness breath. Denies nausea, denies vomiting, denies diarrhea. Denies constipation. Denies hemoptysis, hematemesis. Denies fall. Denies syncope, denies dizziness. Denies any rectal bleeding. Denies any melena, denies any hematemesis. PHYSICAL EXAMINATION VITAL SIGNS: T-max 98.8, heart rate 57, blood pressure 114/77, respirations 20, O2 sat 94% to 96%. HEENT: The patient's head examination, normocephalic, atraumatic. HEENT examination shows pinkish conjunctivae. Anicteric sclerae. No oropharyngeal lesion. NECK: No neck rigidity. CHEST: Kyphosis. CARDIOVASCULAR: S1, S2, regular rhythm. LUNGS: Shows no audible crackle, rales or wheezing. ABDOMEN: Protuberant but less distended. No palpable hepatosplenomegaly. GENITALIA: Male. RECTAL: Deferred. EXTREMITIES: Shows no pitting edema, no calf tenderness, no Homans' sign. NEUROLOGIC: The patient is alert, awake, responsive, is able to move upper and lower extremity without assistance. Gait examination is not tested. VASCULAR: Palpable pulses. MUSCULOSKELETAL: Shows a body mass index as per the body mass index. LABORATORY DATA: Diagnostics from 06/20/2018 pending. IMPRESSION 1. Acute alcoholic cirrhosis and worsening alcoholic cirrhosis and ascites. 2. Status post Code Star. 3. Thrombocytopenia. 4. Anemia. 5. Leukopenia. 6. Pancytopenia. 7. Hyponatremia. 8. Hypokalemia. 9. Severe transaminitis. 10. Hyperbilirubinemia. 11. cirrhosis. 12. Proteinuria. 13. Pyuria. 14. Bacteriuria. 15. Massive ascites. 16. Status post large volume paracentesis. 17. Hepatic cirrhosis and massive ascites. 18. Umbilical hernia. 19. Left inguinal hernia. 20. Decompensated cirrhosis. 21. History of noncompliance. 22. Gait dysfunction. 23. Active nicotine, alcohol and polysubstance abuse and dependence. 24. Possible obstructive jaundice. PLAN: At this time, the patient was seen by the hepatology service, their recommendations were noted. The patient is started on IV albumin. The patient is started on baclofen. The patient is started on lactulose. Psychiatry evaluation is pending. At present, the patient was counseled by me and the other physician about cessation of smoking, alcohol and polysubstance abuse, which he acknowledges but it seems like the patient is not interested in any of the above and wishes to continue drinking, smoking and doing polysubstance abuse and drug use. The patient was explained on multiple occasions about the risk and consequences of continuing habits, which can also cause to him and the patient was explained about all the above, which he acknowledges and understands. The patient's overall prognosis is guarded. Once the patient is cleared by all subspecialty, the patient will be considered for discharge. The patient refused to go to subacute rehab. Dictated and electronically signed, not read. Rai Maya MD
--- NOTE | 2018-06-20 11:04 | CT ---
Date of service: 06/20/2018 PROCEDURE: CT Abdomen and Pelvis with and without intravenous contrast HISTORY: Eval Hepato CA COMPARISON: Comparison is made with the previous exams including previous CT of the abdomen and pelvis with IV contrast dated 01/10/2012 TECHNIQUE: Axial images of the abdomen were obtained in the pre contrast, portal venous and delayed phases of enhancement. Coronal and sagittal reformats were generated. Contrast dose: 150 mL of Omnipaque 350 intravenously. Radiation dose: Total exam DLP = 3081.19 mGy-cm. This CT exam was performed using one or more of the following dose reduction techniques: Automated exposure control, adjustment of the mA and/or kV according to patient size, and/or use of iterative reconstruction technique. FINDINGS: LOWER THORAX: No evidence of acute pathology at the lung base. LIVER: The arterial phase of the liver is suboptimal in this study. There is no evidence of arterial enhancing mass lesion in the liver. Advanced cirrhotic manifestation of the liver are noted. Heterogeneous nodular enhancement of the liver is noted. The portal vein is patent. Mild hepatomegaly is noted. There [id number] relatively enlargement of the caudate lobe noted likely due to cirrhosis. GALLBLADDER AND BILE DUCTS: No evidence of acute cholecystitis or biliary tract obstruction. PANCREAS: Unremarkable. No gross lesion or ductal dilatation. SPLEEN: Mild splenomegaly measures up to 13.4 centimeter in the transverse diameter. ADRENALS: Unremarkable. No mass. KIDNEYS AND URETERS: Unremarkable. No hydronephrosis. No solid mass. VASCULATURE: Unremarkable. No aortic aneurysm. Atherosclerotic calcification noted in the abdominal aorta and iliac arteries. BOWEL: [id number] diffuse small and large bowel wall thickening could be due to soft tissue edema and presence of ascites. No evidence of high-grade bowel obstruction. APPENDIX: No evidence of appendicitis. PERITONEUM: Small to moderate amount of ascites in the abdomen and pelvis. No evidence of free air LYMPH NODES: Unremarkable. No enlarged lymph nodes. BLADDER: The urinary bladder is not distended therefore cannot be evaluated. The possibility of bladder wall thickening is not totally excluded. REPRODUCTIVE: Heterogeneous slightly prominent prostate. BONES: No acute fracture. OTHER FINDINGS: Small fat containing left inguinal hernia is noted. IMPRESSION: Advanced cirrhosis with findings consistent with portal hypertension including splenomegaly and ascites. Suboptimal evaluation of the liver. No evidence of arterial enhancing mass lesion in the liver to suggest HCC noted in this exam. Diffuse small and large bowel wall thickening which could be due to diffuse soft tissue edema and presence of ascites in the abdomen and pelvis. The possibility of enterocolitis is not totally excluded.
--- NOTE | 2018-06-20 13:01 | PN ---
DATE: 06/20/2018 SUBJECTIVE: The patient is in bed in no acute distress, nontoxic. PHYSICAL EXAMINATION: VITAL SIGNS: Temperature is 97, blood pressure is 100/63. HEENT: Unremarkable. NECK: Supple. LUNGS: Have decreased breath sounds. HEART: Normal S1, S2. ABDOMEN: Soft, nontender. LABORATORY EXAMINATION: Reveals the patient's white count of 4.8, hemoglobin of 11. Chemistries are noted. Urinalysis is reviewed. Microbiology is noted. Review of orders reveals the patient to be on p.o. Augmentin. ASSESSMENT AND PLAN: This is a 57-year-old male with a history of alcoholic hepatitis, cirrhosis, diverticulosis, hypertension, chronic obstructive pulmonary disease, hypothyroidism, presenting with and abdominal discomfort with. He has been treated with possible spontaneous bacterial peritonitis and complete with p.o. Augmentin for total of 7 days and after that treatment is completed would use Cipro 750 mg p.o. weekly, once weekly for spontaneous bacterial peritonitis prophylaxis. Koko Saha MD
[2018-06-20 14:43] VITALS: BP 109/71; PULSE 82; RESP 20; TEMP 98.2; O2SAT 96
[2018-06-20] MEDS ORDERED: Pneumococcal 23-Valent Vaccine IM ONE (17:21)
--- NOTE | 2018-06-20 21:03 | CON ---
DATE OF CONSULTATION: 06/20/2018 HISTORY OF PRESENT ILLNESS: In short, the patient is a 57-year-old male with multiple medical issues including liver cirrhosis, severe alcohol use disorder, perirectal abscess. The patient was admitted on the medical side for evaluation of dark stool. This com writer was involved into the patient for evaluation of depressive symptoms. The patient was seen and examined today. The patient presented to be depressed, but denied feeling hopeless or helpless. The patient denied any thoughts of harming himself or others. The patient reported transient suicidal ideation but never tried to kill himself before. The patient reports that he still drinks even though he has cirrhosis. The patient denied hearing voices, denied seeing things, denied paranoid ideations. The patient is not interested to have any psychiatric services at this point. The patient is calm and cooperative, socially appropriate as per nursing staff notes. PHYSICAL EXAMINATION: VITAL SIGNS: Reviewed, stable. MEDICATIONS: Reviewed. The patient is on , Augmentin, baclofen, Librium 50 mg every 4 hours as needed for alcohol withdrawals. The patient is on Cardizem, Drisdol, folic acid, furosemide, , levothyroxine, multivitamins, nicotine patch, Zofran, Protonix, K-Dur, Aldactone, Flomax, and thiamine 100 mg daily. LABORATORY DATA: Reviewed, most recent was from today. Urinalysis reviewed. Urinalysis showed infection and toxicology showed benzodiazepines positive. MENTAL STATUS EXAMINATION: The patient presented to be alert, somewhat depressed. Affect was constricted. Mood described as being depressed. Thought process seems to be concrete. Thought content, the patient denied visual, auditory, or tactile hallucinations. Denied paranoid ideations. The patient denied thoughts of harming himself or others. Denied intents or plan. Insight and judgment seem to be limited. Impulses are well controlled. IMPRESSION: Rule out mood disorder due to general medical condition, rule out substance-induced mood disorder. The patient has multiple medical comorbidities such as liver cirrhosis, perianal abscess, as well as urinary tract infection. PLAN: Continue current management. Continue current medication. The patient contracted for safety. The patient denied feeling of hopelessness or helplessness during this com writer's interview. The patient denied feeling depressed at the moment of the interview. The patient reported to have fair appetite and sleep. This com writer will follow up on this patient tomorrow to make sure that the patient is doing okay. Meanwhile, no need for any psychotropic medications as of now. Rin Healy MD
--- NOTE | 2018-06-21 15:07 | CP.PCM.PCO ---
Physician Communication Note - Physician Communication Note Physician Communication Note: pt was d/c
== END 2018-06-20 18:41 | disposition home health service (06) | DRG 433 ==
LOC: ED 22:48 → ERH 06-17 02:49 → 2RSO 06-17 03:38 → OBSVTOIN 06-18 06:11 → 5RNO 06-19 01:30
PROVIDERS: ADMIT Internal Medicine; ATTEND Internal Medicine
PROC: 0W9G3ZZ Drainage of Peritoneal Cavity, Percutaneous Approach (ICD-10-PCS; principal; 2018-06-17 13:00)
DX: K70.31 Alcoholic cirrhosis of liver with ascites (principal); D61.818 Other pancytopenia; F10.239 Alcohol dependence with withdrawal, unspecified; E87.1 Hypo-osmolality and hyponatremia; D68.4 Acquired coagulation factor deficiency; E87.2 Acidosis; J98.11 Atelectasis; K61.2 Anorectal abscess; N39.0 Urinary tract infection, site not specified; K70.11 Alcoholic hepatitis with ascites; E87.6 Hypokalemia; E03.9 Hypothyroidism, unspecified; E11.9 Type 2 diabetes mellitus without complications; J43.9 Emphysema, unspecified; I10 Essential (primary) hypertension; K72.90 Hepatic failure, unspecified without coma; K52.9 Noninfective gastroenteritis and colitis, unspecified; E83.39 Other disorders of phosphorus metabolism; E83.42 Hypomagnesemia; F12.90 Cannabis use, unspecified, uncomplicated; F17.200 Nicotine dependence, unspecified, uncomplicated; K29.70 Gastritis, unspecified, without bleeding; K44.9 Diaphragmatic hernia without obstruction or gangrene; E88.09 Other disorders of plasma-protein metabolism, not elsewhere classified; K42.9 Umbilical hernia without obstruction or gangrene; K40.90 Unilateral inguinal hernia, without obstruction or gangrene, not specified as recurrent; Y90.9 Presence of alcohol in blood, level not specified; Z91.19 Patient's noncompliance with other medical treatment and regimen